=== PATIENT | female | born 1925 | race Caucasian/White ===

== ENCOUNTER 2016-09-06 19:59 | Inpatient (IN) | payer OTHER, MEDICARE ==
[~2016-09-06] VITALS: Ht 162.6 cm; Wt 59.0 kg
[~2016-09-06 19:59] MED LIST: TYLENOL #31 TAB PO
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
--- NOTE | 2016-09-06 20:29 | NUR ---
LABS SENT (1SST,1LAV,1BLUE,1GRAY,1PINK)
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
[2016-09-06 20:41] LABS: ABSOLUTE BASOPHIL COUNT 0 /CUMM (0.0-0.2); ABSOLUTE EOSINOPHIL COUNT 0.2 /CUMM (0.0-0.7); ABSOLUTE GRANULOCYTE CT 6.7 /CUMM (1.4-6.5); ABSOLUTE MONOCYTE COUNT 1.2 /CUMM (0.10-0.60); BASOPHIL % 0.3 % (0.0-2.0); EOSINOPHIL % 1.6 % (0-5); GRANULOCYTE % 59.7 % (42.2-75.2); HEMATOCRIT 38.4 % (37-47); MEAN CORPUSCULAR HGB 29.6 PG (27.0-31.0); MEAN CORPUSCULAR HGB CONC 33.1 G/DL (33.0-37.0); MEAN CORPUSCULAR VOLUME 89.4 FL (81.0-99.0); MEAN PLATELET VOLUME 9.2 FL (7.4-10.4); PLATELET COUNT 216 /CUMM (130-400); RBC DISTRIBUTION WIDTH 13.4 % (11.5-14.5); WHITE BLOOD CELL COUNT 11.1 /CUMM (4.8-10.8)
--- NOTE | 2016-09-06 20:41 | NUR ---
KIRILL Prescott AT BEDSIDE TO REEVAL AND TALK TO PT
[2016-09-06] MEDS ORDERED: METOPROLOL TART25 M1 PO (20:44)
[2016-09-06] MEDS ORDERED: LISINOPRIL10 M1 PO (20:44)
[2016-09-06] MEDS ORDERED: ASPIRIN325 M2 PO (20:45)
[2016-09-06] MEDS ORDERED: ALEVE220 M2 (20:45)
[2016-09-06 20:51] LABS: PTT 27 SEC (25-37)
--- NOTE | 2016-09-06 20:59 | NUR ---
PT TO RADIOLOGY
--- NOTE | 2016-09-06 22:01 | RADIOLOGY REPORT ---
EXAMINATION: XR HIP, RIGHT CLINICAL INFORMATION: Fall, right hip fracture. COMPARISON: No relevant prior studies are available for comparison. TECHNIQUE: AP and crosstable lateral views of the right hip. FINDINGS: There is an oblique intertrochanteric fracture with associated varus angulation. Additionally, there is a greater trochanter fracture with approximately 1.4 cm of displacement as well as the lesser trochanter fracture with approximately 2.1 cm of medial displacement. The femoral head is well-seated within the acetabulum. There are mild right hip degenerative changes. There is no osseous erosion. Atherosclerotic calcifications are seen within the femoral vessels. IMPRESSION: Right hip intertrochanteric fracture with associated varus angulation. Additional displaced fractures of the greater and lesser trochanters.
--- NOTE | 2016-09-06 22:01 | RADIOLOGY REPORT ---
EXAMINATION:\H\ \N\XR CHEST CLINICAL INFORMATION: Hip fracture. COMPARISON: Multiple priors, most recent chest radiograph dated 12/29/2012. TECHNIQUE: Frontal view of the chest was obtained. FINDINGS: Prominent bilateral interstitial markings. No focal airspace consolidation. No pleural effusion or pneumothorax. Stable cardiomediastinal silhouette. No acute osseous abnormality. IMPRESSION: Prominent bilateral interstitial markings without a focal airspace consolidation. No significant interval change since the prior examination.
--- NOTE | 2016-09-06 22:01 | Cons- Orthopedic ---
General Information and HPI Consulting Request Date of Consult: 09/06/16 Requested By: Dr Holbrook Reason for Consult: R hip fracture Source of Information: patient, family Exam Limitations: language barrier History of Present Illness: Patient is a 89-year-old female who presents to the emergency room with right- sided severe hip pain after a fall that occurred prior to arrival. This was a mechanical fall, when she was outside carrying a bag, lost her balance fell onto her right side. She was brought in by ambulance and evaluated by the emergency room staff, plain film x-ray show that she has a intertrochanteric right-sided hip fracture and she was admitted to the hospitalist service and orthopedics was consulted for management of her hip fracture. Patient was seen in the emergency room, she has acute severe pain which is worse with motion. She has no previous hip problems. She denies any other injuries chest pain or shortness of breath, head injury lightheadedness or dizziness. She has a history of a cardiac stent and is on aspirin Allergies/Medications Allergies: Coded Allergies: NO KNOWN ALLERGIES (02/27/12) Home Med List: Aspirin (Aspirin*) 325 MG TABLET 1 TAB PO DAILY HEART (Reported) Lisinopril 10 MG TABLET 1 TAB PO DAILY BLOOD PRESSURE (Reported) Metoprolol Tartrate 25 MG TABLET 1 TAB PO BID BLOOD PRESSURE (Reported) Naproxen Sodium (Aleve) 220 MG TABLET PAIN (Reported) Past History Medical History Cardiovascular: hypertension, hyperlipidemia Musculoskeletal: osteoarthritis Other Medical Hx: Hypertension, dyslipidemia, coronary artery disease status post anterior wall [place] with stent to the LAD in 2002, lumbar stenosis with lumbar radiculopathy, compression fractures, osteoporosis, and carpal tunnel release. Surgical History Pertinent Surgical History: cardiac stent Psychosocial History Services at Home: None Review of Systems Review of Systems: Review of systems: See HPI, all other systems negative. Constitutional: No chills fever or weight loss HEENT: No visual changes no sore throat no congestion Cardiovascular: No chest pain ,palpitation , orthopnea or ankle swelling Skin: No jaundice no rashes Respiratory: No dyspnea cough sputum or hemoptysis GI: No nausea no vomiting : No dysuria no hematuria Musclulo skeletal: See HPI Neurologic: No numbness no confusion Psych: No stress anxiety or depression,. Heme/endocrine: No bruising no bleeding no polyuria or polydipsia Immunology: No splenectomy or history of AIDS Exam & Diagnostic Data Vital Signs and I&O Vital Signs Date Time Temp Pulse Resp B/P B/P Pulse O2 O2 Flow FiO2 Mean Ox Delivery Rate 09/06 2142 96.7 69 19 155/65 94 Room Air 09/07 2035 Room Air 09/06 2014 96.4 114 20 148/65 94 Room Air Physical Exam: Well-developed well-nourished elderly female looks stated age appears to be in acute pain, holding right hip. HEENT, atraumatic , extraocular motion intact Neck: Supple, no lymphadenopathy no tenderness on palpation, Respiratory: No respiratory distress chest is nontender, clear to auscultation bilateral Abdomen: Abdomen is nontender Heart: Regular rate and rhythm Extremities: Right lower extremity is mildly shortened and next only rotated with swelling at the right anterior and lateral proximal hip with severe pain on palpation and severe pain with attempting to move the right lower extremity bilateral lower extremities are neurovascularly intact with sensation motor grossly intact Neuro: Alert and oriented x3 Psych: Mood affect normal, normal memory normal judgment. Skin: Warm and dry, no rash on exposed skin Last 24 Hours of Labs: Laboratory Tests 09/06 2028 Chemistry Sodium (137 - 145 mmol/L) 140 Potassium (3.5 - 5.1 mmol/L) 4.7 Chloride (98 - 107 mmol/L) 102 Carbon Dioxide (22 - 30 mmol/L) 27 Anion Gap (5 - 16) 11 BUN (7 - 17 mg/dL) 40 H Creatinine (0.5 - 1.0 mg/dL) 0.8 Estimated GFR (>60 ml/min) > 60 BUN/Creatinine Ratio (7 - 25 %) 50.0 H Glucose (65 - 99 mg/dL) 162 H Calcium (8.4 - 10.2 mg/dL) 9.3 Total Bilirubin (0.2 - 1.3 mg/dL) 0.5 AST (14 - 36 U/L) 16 ALT (9 - 52 U/L) 24 Alkaline Phosphatase (<127 U/L) 62 Total Protein (6.3 - 8.2 g/dL) 6.6 Albumin (3.5 - 5.0 g/dL) 4.0 Globulin (1.9 - 4.2 gm/dL) 2.6 Albumin/Globulin Ratio (1.1 - 2.2 %) 1.5 Coagulation PT (9.4 - 12.5 SEC) 11.0 INR (0.90 - 1.19) 1.05 APTT (25 - 37 SEC) 27 Hematology CBC w Diff NO MAN DIFF REQ WBC (4.8 - 10.8 /CUMM) 11.1 H RBC (4.20 - 5.40 /CUMM) 4.30 Hgb (12.0 - 16.0 G/DL) 12.7 Hct (37 - 47 %) 38.4 MCV (81.0 - 99.0 FL) 89.4 MCH (27.0 - 31.0 PG) 29.6 RDW (11.5 - 14.5 %) 13.4 Plt Count (130 - 400 /CUMM) 216 MPV (7.4 - 10.4 FL) 9.2 Gran % (42.2 - 75.2 %) 59.7 Lymphocytes % (20.5 - 51.1 %) 27.4 Monocytes % (1.7 - 9.3 %) 11.0 H Eosinophils % (0 - 5 %) 1.6 Basophils % (0.0 - 2.0 %) 0.3 Absolute Granulocytes (1.4 - 6.5 /CUMM) 6.7 H Absolute Lymphocytes (1.2 - 3.4 /CUMM) 3.0 Absolute Monocytes (0.10 - 0.60 /CUMM) 1.2 H Absolute Eosinophils (0.0 - 0.7 /CUMM) 0.2 Absolute Basophils (0.0 - 0.2 /CUMM) 0 PUBS MCHC (33.0 - 37.0 G/DL) 33.1 Imaging Results: X-rays the right hip show a three-part intertrochanteric right-sided hip fracture Assessment/Plan Assessment/Plan Intertrochanteric right-sided hip fracture Patient is admitted to medicine, requires surgical intervention at some point, she will need a medical and cardiac clearance. We will make her nothing by mouth after midnight for the possibility of surgery tomorrow. She should be nonweightbearing, bed rest for now, Altamirano catheter in place, pain medication as needed, considering adding Valium or Robaxin for muscle spasm. Discussed with Problem List: 1. Intertrochanteric fracture of right hip Consult Acknowledgment - Thank you for your consult request.
--- NOTE | 2016-09-07 00:07 | Admission Certification ---
Admission Certification Certification Statement - As attending physician, I certify that at the time of - admission, based on clinical presentation, severity of - symptoms, need for further diagnostic testing and - therapeutic interventions, and risk of adverse outcomes - without in-hospital treatment, in my clinical assessment, - this patient requires an acute hospital stay for a minimum - of two nights or longer. I have also considered psychsocial - factors such as support system, advanced age, financial - issues, cognitive issues, and failed out-patient treatments, - past re-admission history, safety of patient, and lack of - compliance as applicable. Specific rationale supporting this admission is: Mechanical fall, right hip fracture needs Ortho consult, pain management and repair.
--- NOTE | 2016-09-07 00:09 | NUR ---
REFER TO DOWN TIME PAPERWORK AND ORDERS
--- NOTE | 2016-09-07 00:10 | History & Physical ---
SARAHI KAPLAN MD 09/07/16 0007: General Information and HPI MD Statement: I have seen and personally examined ATIYA KHAN and documented this H&P. The patient is a 89 year old F who presented with a patient stated chief complaint of [hip pain after fall]. Source of Information: patient, family Exam Limitations: language barrier History of Present Illness: 89-year-old female with past medical history of CAD, status post stent to LAD in 2002, hypertension, hyperlipidemia, lumbar stenosis, lumbar radiculopathy, compression fractures, osteoporosis, presented to the ED status post mechanical fall. Patient reports that she was trying to carry a heavy bag of weeds, but lost her balance and ended up falling on her right side, with pain on her right hip, and some abrasions on her right elbow. Patient denies head trauma, loss of consciousness, dizziness, seizure-like activity including tongue biting, urinary incontinence. Patient also denies bowel incontinence. Denies chest pain, palpitations, shortness of breath. Patient received 4 mg of IV morphine in the ED, without significant relief in pain. She is noted to have bilateral arm shakiness, that she gets when she is in severe pain. Social history: Patient lives with her son, normally ambulates with a cane or walker. She cooks and cleans at home. She drinks wine occasionally, smokes or 0.5 pack a day for a long time. Denies illicit drug use. She used to work at [employer] for 20 years. Family history significant for patient's mom who had a stroke at age of 87. Medications: Lisinopril 10 mg daily, metoprolol 25 twice a day, Aleve 220 daily, aspirin 325 daily. Her vitals were within normal limits. Labs were mostly unremarkable, but she does have a white count of 11.1 without bands. Hemoglobin 12.7, hematocrit 38.4, INR 1.05, APTT 27, sodium 140, potassium 4.7, BUN 40, creatinine 0.8, anion gap 11. EKG showed sinus rhythm at 76, QTC 446. On physical exam, HEENT normal, no respiratory distress, breath sounds are normal, normal S1, S2, no murmurs rubs or gallops, no carotid bruit, abdominal exam benign, normal bowel sounds, right lower extremity was shortened and externally rotated, movement is limited due to severe pain. Pulses were normal. Capillary refill normal. Right hip x-ray shows right hip intertrochanteric fracture with associated varus angulation. Additional displaced fractures of the greater and lesser trochanters. Allergies/Medications Allergies: Coded Allergies: NO KNOWN ALLERGIES (02/27/12) Home Med list Aspirin (Aspirin*) 325 MG TABLET 1 TAB PO DAILY HEART (Reported) Lisinopril 10 MG TABLET 1 TAB PO DAILY BLOOD PRESSURE (Reported) Metoprolol Tartrate 25 MG TABLET 1 TAB PO BID BLOOD PRESSURE (Reported) Naproxen Sodium (Aleve) 220 MG TABLET PAIN (Reported) Past History Travel History Traveled to [place] past 21 day No Medical History Cardiovascular: hypertension, hyperlipidemia Musculoskeletal: osteoarthritis Other Medical Hx: Hypertension, dyslipidemia, coronary artery disease status post anterior wall NJ with stent to the LAD in 2002, lumbar stenosis with lumbar radiculopathy, compression fractures, osteoporosis, and carpal tunnel release. Surgical History Surgical History: cardiac stent Past Family/Social History Family History Relations & Conditions if any MOTHER FH: stroke, Onset: 60+. Psychosocial History Where do you live? Home Who Do You Live With? child Services at Home: None Primary Language: Macedonian Smoking Status: Current Everyday Smoker ETOH Use: occasional use Illicit Drug Use: denies illicit drug use Functional Ability ADLs Independent: dressing, eating, toileting, bathing. Ambulation: cane, walker IADLs Independent: housework, food prep. Review of Systems Review of Systems Constitutional: Denies: chills, fever, weakness. EENTM: Denies: visual changes. Cardiovascular: Denies: chest pain. Respiratory: Denies: cough, short of breath. GI: Denies: abdominal pain, bloating, constipation, diarrhea. Genitourinary: Denies: dysuria. Musculoskeletal: Reports: see HPI. Exam & Diagnostic Data Last 24 Hrs of Vital Signs/I&O Vital Signs Date Time Temp Pulse Resp B/P B/P Pulse O2 O2 Flow FiO2 Mean Ox Delivery Rate 09/07 0010 96.5 77 20 149/65 95 Room Air 09/06 2143 96.7 69 19 155/65 94 Room Air 09/07 2035 Room Air 09/06 2014 96.4 114 20 148/65 94 Room Air Intake & Output 09/07 0800 09/07 0000 09/06 1600 Intake Total 0 Output Total Balance 0 Intake, Oral 0 Patient 58.967 kg Weight Weight Estimated Measurement Method Physical Exam General Appearance Alert, Oriented X3, Cooperative, uncomfortable due to pain HEENT Atraumatic Cardiovascular Regular Rate, Normal S1, Normal S2, No Murmurs, Gallops, Rubs Lungs Clear to Auscultation, Normal Air Movement Abdomen Normal Bowel Sounds, Soft, No Tenderness Neurological Normal Speech Extremities right leg short and externally rotated Vascular Normal Pulses, Pulses Symmetrical, normal cap refill Last 24 Hrs of Labs/Alexis: Laboratory Tests 09/06/162028: Anion Gap 11, Estimated GFR > 60, BUN/Creatinine Ratio 50.0 H, Glucose 162 H, Calcium 9.3, Total Bilirubin 0.5, AST 16, ALT 24, Alkaline Phosphatase 62, Total Protein 6.6, Albumin 4.0, Globulin 2.6, Albumin/Globulin Ratio 1.5, PT 11.0, INR 1.05, APTT 27, CBC w Diff NO MAN DIFF REQ, RBC 4.30, MCV 89.4, MCH 29.6, RDW 13.4, MPV 9.2, Gran % 59.7, Lymphocytes % 27.4, Monocytes % 11.0 H, Eosinophils % 1.6, Basophils % 0.3, Absolute Granulocytes 6.7 H, Absolute Lymphocytes 3.0, Absolute Monocytes 1.2 H, Absolute Eosinophils 0.2, Absolute Basophils 0, PUBS MCHC 33.1 Diagnostic Data EKG Results EKG showed sinus rhythm at 76, QTC 446. Other Results Right hip x-ray shows right hip intertrochanteric fracture with associated varus angulation. Additional displaced fractures of the greater and lesser trochanters. Assessment/Plan Assessment: 89-year-old female with past medical history of CAD, status post stent to LAD in 2002, hypertension, hyperlipidemia, lumbar stenosis, lumbar radiculopathy, compression fractures, osteoporosis, presented to the ED status post mechanical fall, found to have right hip intertrochanteric fracture, will likely need surgical intervention. # Right Hip fracture - RCRI, patient has 1 risk factor (h/o NJ) placing her at 1.0-1.3% risk of perioperative cardiac event. Admit to general medicine Nothing by mouth after midnight Fall precautions IV morphine 4 mg every 4-6 when necessary IV Tylenol 1000 mg 3 times a day IV fluids, normal saline at 75 mL per hour 2 bags Flexeril 5 mg at bedtime for spasm EKG and troponin in the a.m. Watch H&H, type and screen done Appreciate surgical input, Dr. Salas, plan for surgery tomorrow. Cardiology clearance, patient normally follows up with Dr. Coyle Hold aspirin and Aleve # History of hypertension Continue metoprolol and lisinopril Diet: Nothing by mouth DVT prophylaxis: alps, will need to order heparin subcutaneous after surgery Full code As Ranked By This Provider Problem List: 1. Hip fracture, right Core Measures/Miscellaneous Acute Coronary Syndrome ACS Diagnosis: No Cerebrovascular Accident CVA/TIA Diagnosis: No Congestive Heart Failure CHF Diagnosis: No Venous Thromboembolism VTE Risk Factors: Age > 40, Immobility, paresis No [facility] VTE prophylaxis d/t: No contraindications No VTE Pharm Prophylaxis d/t: Surgical contraindication VTE Diagnosis: No VTE Type: NONE VTE Confirmed by (Test): NONE Severe Sepsis Severe Sepsis Present: No Septic Shock Septic Shock Present: No Miscellaneous Documentation Attending Case Discussed With: Dr. Holbrook Primary Care Physician: CAROL HINTON PhD,RENETTA Savage Patient sees these Specialists Dr. Carol Flannery Level of Patient Care: General Medicine PAUL CONROY 09/07/16 0016: Resident Review Statement Resident Statement: examined this patient, discussed with physician general internal medicine, agreed with physician general internal medicine, discussed with family, reviewed EMR data (avail), discussed with nursing , discussed with case mgmt, reviewed images, amended to note Other Findings: 89-year-old female with a past medical history of coronary artery disease status post anterior wall NJ with angioplasty to LAD in 2002, hypertension, hyperlipidemia, lumbar stenosis with lumbar radiculopathy, compression fracture, osteoporosis and carpal tunnel syndrome who presented to the ED after she had a mechanical fall resulting in a fracture of the right hip. According to the patient she was in the driveway earlier this morning, picking up a heavy bag of weeds when she fell down and had excruciating pain on the right side of her hip. She denies LOC, hitting her head, chest pain, SOB, palpitations, headache, lightheadedness, dizziness, any seizure-like activity, urinary or bowel incontinence. She denies dyspnea, orthopnea, fever, chills, productive purulent cough, any history of stroke, or passing out. She states that she called out for help and eventually presented to the ER. Of note she uses a cane or walker at home and is pretty much independent in terms of her ADLs. Vitals on admission blood pressure 155/65, pulse 69, afebrile saturating 94% on room air. On physical exam she is alert and oriented 3 and in mild distress from pain on the right side of her hip. HEENT revealed PERRLA, EOMI, dry mucous membranes. Examination of the neck did not reveal an elevated JVP, no cervical lymphadenopathy. Cardiovascular exam revealed normal S1, S2 no murmurs rubs or gallops appreciated. Chest was clear to auscultation bilaterally. Abdominal exam is benign with abdomen soft, nontender, nondistended with bowel sounds in all 4 quadrants. Examination of the lower extremities reveals an externally rotated shortened right lower extremity compared to the left. Ulcers were intact bilaterally. She is tender on palpation in the right hip. There is no edema or swelling or erythema. There is a slight abrasion located on the extensor surface of her right elbow. Labs pertinent for leukocytosis with a white blood cell count of 11,100, and H&H of 12.7/38.4, platelet count of 216,000. Serum chemistries revealed a sodium of 140, potassium of 4.7, BUN 40, creatinine 0.8 with serum glucose of 162. LFTs unremarkable with an AST/ALT of 16/24 with an alkaline phosphatase of 62. Coags revealed an INR of 1.05. X-ray of the hip: Right hip intertrochanteric fracture with associated varus angulation. Additional displaced fractures of the greater and lesser trochanters. X ray of chest: Prominent bilateral interstitial markings without a focal airspace consolidation. No significant interval change since the prior examination. EKG showed: Dermal sinus rhythm with a heart rate of 76, normal axis, Q waves in leads waves I and aVL, no ST-T changes normal FL interval of 149 and a QTC of 446. In the ER she received morphine 4 mg IV 2 Assessment and plan Admit patient to general medicine. #Right hip fracture status post mechanical fall RCRI is 0.9% for any major cardiovascular event, and patient can undergo surgery. Pain control with IV Tylenol thousand milligrams 3 times a day, and morphine 4 mg every 6 when necessary IV. Flexeril 5mg at bedtime Normal saline at 75 MLS per hour Troponin and EKG in a.m. Cardiology consult in a.m. for risk stratification prior to surgery given patient has a hx of CAD and is s/p stent placement. Orthopedic already evaluated the patient in the ER. NPO after midnight for surgery tomorrow. Follow-up cardiology and orthopedic recommendations. #Coronary artery disease status post PCI Currently stable Continue on metoprolol 25 mg twice a day, lisinopril 10 mg daily and simvastatin 20 mg daily. Will hold, aspirin 325 mg daily -DVT prophylaxis -Alps for now. -Diet Heart healthy. Nothing by mouth after midnight for possible surgery in a.m. -CODE STATUS Full code ALEKSEY HINTON, [facility] 09/07/16 0019: Attending MD Review Statement Attending Statement Attending MD Statement: examined this patient, discuss w/resident/PA/BIOMEDICAL SPECIALIST, agreed w/resident/PA/BIOMEDICAL SPECIALIST Attending Assessment/Plan: 89 yo Macedonian speaking F smoker with h/o CAD s/p AWMI and stent to LAD (2002), HTN, HLD, OA, lumbar stenosis with radiculopathy, compression fracture, osteoporosis, presents for evaluation of right hip pain s/p mechanical fall at home while walking outside carrying a heavy bag when she lost balance. She denies head strike, dizziness or LOC. No chest pain, dyspnea or palpitations. No prior h/o diabetes, stroke or CHF. At baseline, she walks with a cane or walker, independent with ADLs. Vitals stable except for borderline hypertension in the setting of pain. Exam: AAO, in mild distress due to pain, dry mucous membranes, Neck supple. Chest b/l clear, Heart S1S2 regular, RLE: shortened and externally rotated, swelling to anterolateral aspect of hip. Peripheral pulses well felt. Labs: WBC 11.1, INR 1.05, BUN 40, creat 0.8, trop neg. CXR: prominent b/l interstitial markins without focal airspace consolidation. Hip xray: right hip intertrochanteric fracture with varus angulation, additional displaced fractures of greater and lesser trochanter. EKG: SR, no acute changes. 1. Mechanical fall, sustained right hip intertrochanteric fracture. GM admit, fall precautions, pain management with IV morphine, IV Tylenol, Flexeril or valium for muscle spasms, Ortho consulted, NPO after midnight for possible OR in AM. IV fluids. Repeat troponin and EKG in AM. Per RCRI, patient has 1 risk factor (h/o NJ) placing her at 1.0-1.3% risk of perioperative cardiac event. If this is acceptable, patient can be taken up for surgery. Will obtain cardiology clearance for surgery. Obtain Echo. Hold aspirin and NSAIDs. 2. Continue metoprolol, lisinopril with holding parameters. Smoking cessation counseling, nicotine patch. DVT ppx Alps for now, Hep SC post surgery. Full code.
--- NOTE | 2016-09-07 00:32 | NUR ---
MEDICATED WITH LOPRESSOR PER EMAR BP 149/65, HR 77.
--- NOTE | 2016-09-07 01:13 | NUR ---
PT CONTINUES TO AWAIT ADMISSION
--- NOTE | 2016-09-07 02:19 | NUR ---
PT BED ASSIGNMENT 224-1
--- NOTE | 2016-09-07 02:41 | NUR ---
REPORT GIVEN TO MARY GROSSMAN.
[2016-09-07 03:25] VITALS: BP 110/64
[2016-09-07 06:50] VITALS: BP 110/70
--- NOTE | 2016-09-07 07:33 | PN- Orthopedic ---
Subjective Subjective: some pain r hip with movement, ok at rest. no cp/sob/n/v. Objective Vital Signs and I&Os Vital Signs Date Time Temp Pulse Resp B/P B/P Pulse O2 O2 Flow FiO2 Mean Ox Delivery Rate 09/07 0650 98.1 73 20 110/70 93 Room Air 09/07 0325 97.4 72 20 110/64 92 Room Air 09/07 0300 92 Room Air 09/07 0234 96.7 69 18 136/64 95 Room Air 09/07 0039 Room Air 09/07 0032 77 149/65 09/07 0010 96.5 77 20 149/65 95 Room Air 09/06 2143 96.7 69 19 155/65 94 Room Air 09/07 2035 Room Air 09/06 2014 96.4 114 20 148/65 94 Room Air Intake & Output 09/07 0800 09/07 0000 09/06 1600 09/06 0800 09/06 1600 Intake Total 0 Output Total 400 Balance -400 0 Intake, Oral 0 Output, Urine 400 Patient 130 lb 130 lb Weight Weight Reported by Patient Estimated Measurement Method Physical Exam: GEN: NAD CARD: s1s2 RRR PULM: Coarse, clears with cough EXT: RLE- ttp r hip/thigh, +plantar/dorsi flexion, palp pedal pulses, gross sensate intact Results Last 48 Hours of Labs: Laboratory Tests 09/07 09/06 0800 2028 Chemistry Sodium (137 - 145 mmol/L) 139 140 Potassium (3.5 - 5.1 mmol/L) 4.5 4.7 Chloride (98 - 107 mmol/L) 104 102 Carbon Dioxide (22 - 30 mmol/L) 27 27 Anion Gap (5 - 16) 8 11 BUN (7 - 17 mg/dL) 35 H 40 H Creatinine (0.5 - 1.0 mg/dL) 0.7 0.8 Estimated GFR (>60 ml/min) > 60 > 60 BUN/Creatinine Ratio (7 - 25 %) 50.0 H 50.0 H Glucose (65 - 99 mg/dL) 162 H Calcium (8.4 - 10.2 mg/dL) 9.3 Total Bilirubin (0.2 - 1.3 mg/dL) 0.5 AST (14 - 36 U/L) 16 ALT (9 - 52 U/L) 24 Alkaline Phosphatase (<127 U/L) 62 Troponin I (< 0.11 ng/ml) < 0.01 < 0.01 Total Protein (6.3 - 8.2 g/dL) 6.6 Albumin (3.5 - 5.0 g/dL) 4.0 Globulin (1.9 - 4.2 gm/dL) 2.6 Albumin/Globulin Ratio (1.1 - 2.2 %) 1.5 Coagulation PT (9.4 - 12.5 SEC) 11.0 INR (0.90 - 1.19) 1.05 APTT (25 - 37 SEC) 27 Hematology CBC w Diff Pending NO MAN DIFF REQ WBC (4.8 - 10.8 /CUMM) Pending 11.1 H RBC (4.20 - 5.40 /CUMM) Pending 4.30 Hgb (12.0 - 16.0 G/DL) Pending 12.7 Hct (37 - 47 %) Pending 38.4 MCV (81.0 - 99.0 FL) Pending 89.4 MCH (27.0 - 31.0 PG) Pending 29.6 RDW (11.5 - 14.5 %) Pending 13.4 Plt Count (130 - 400 /CUMM) Pending 216 MPV (7.4 - 10.4 FL) Pending 9.2 Gran % (42.2 - 75.2 %) 59.7 Lymphocytes % (20.5 - 51.1 %) 27.4 Monocytes % (1.7 - 9.3 %) 11.0 H Eosinophils % (0 - 5 %) 1.6 Basophils % (0.0 - 2.0 %) 0.3 Absolute Granulocytes (1.4 - 6.5 /CUMM) 6.7 H Absolute Lymphocytes (1.2 - 3.4 /CUMM) 3.0 Absolute Monocytes (0.10 - 0.60 /CUMM) 1.2 H Absolute Eosinophils (0.0 - 0.7 /CUMM) 0.2 Absolute Basophils (0.0 - 0.2 /CUMM) 0 PUBS MCHC (33.0 - 37.0 G/DL) Pending 33.1 Assessment/Plan Assessment/Plan A: 89F with R intertroch fx, awaiting clearance for surgical fixation, stable. P: continue npo, ivf. If not cleared today by cards, can eat and hl, then please make npo pmn with ivf. awaiting cardiac clearance medical mgmt will dw attending
--- NOTE | 2016-09-07 07:48 | NUR ---
0300 ADMITTED FROM ER VIA STRETCHER TO ROOM 224 BED 1.ASSISTED TO BED WITH 4 STAFFS.89 YRS.OLD WF FROM HOME WHO FELL YESTERDAY & FRACTURED RT.HIP. RT.HIP IS SHORTER & ROTATED.CMS+.IN PAIN WHEN MOVED.HAD PAIN MED IN ER. F/C IN PLACED DRAINING LIGHT CHRISTINE URINE.IVF INFUSING.ON RA.NO RESP DISTRESS NOTED.BED ALARM ON.CALL SIMMONS IN REACH.A&OX3.ORIENTED TO ROOM & SURROUNDINGS.ALPS APPLIED TO LLE ONLY.PT IS ANXIOUS.
--- NOTE | 2016-09-07 08:10 | PN- Housestaff ---
See Addendum Subjective Follow-up For: Right hip intertrochanteric fracture Subjective: Patient seen and examined. Reports dry cough, sore throat and URI which started 3 days ago. She is constantly coughing at the time of our interview. Denies fever, chills. Right hip pain is well-controlled with current pain medications. Preop cardiac risk assessment was performed by night team; they suggested cardiology evaluation before considering surgery. Echocardiogram, EKG, troponin pending. Review of Systems Constitutional: Reports: no symptoms. Objective Last 24 Hrs of Vital Signs/I&O Vital Signs Date Time Temp Pulse Resp B/P B/P Pulse O2 O2 Flow FiO2 Mean Ox Delivery Rate 09/07 0650 98.1 73 20 110/70 93 Room Air 09/07 0325 97.4 72 20 110/64 92 Room Air 09/07 0300 92 Room Air 09/07 0234 96.7 69 18 136/64 95 Room Air 09/07 0039 Room Air 09/07 0032 77 149/65 09/07 0010 96.5 77 20 149/65 95 Room Air 09/06 2143 96.7 69 19 155/65 94 Room Air 09/06 2036 Room Air 09/06 2014 96.4 114 20 148/65 94 Room Air Intake & Output 09/07 1600 09/07 0800 09/07 0000 Intake Total 500 0 Output Total 600 Balance -100 0 Intake, IV 500 Intake, Oral 0 0 Number 0 Bowel Movements Output, Urine 600 Patient 130 lb 130 lb Weight Weight Reported by Patient Estimated Measurement Method Physical Exam General Appearance: Alert, Oriented X3, Cooperative, No Acute Distress Skin: No Rashes, No Breakdown HEENT: Atraumatic, PERRLA, EOMI, Mucous Membr. moist/pink, erythematous pharynx, no exudate Neck: Supple, No JVD, No thryomegaly, +2 Carotid Pulse wo Bruit, No LAD Lymphatic: Axillary nl, Cervical nl Cardiovascular: Regular Rate, No Murmurs Lungs: Clear to Auscultation, Normal Air Movement Abdomen: Normal Bowel Sounds, Soft, No Tenderness, No Hepatospenomegaly, No Masses Neurological: Normal Speech, Normal Tone, Sensation Intact, Cranial Nerves 3-12 NL, Reflexes 2+ Extremities: No Cyanosis, No Edema, Normal Pulses, No Tenderness/Swelling, RLE ext rotated. Sensation and pulse intact. Vascular: Normal Pulses, Pulses Symmetrical Current Medications: Current Medications Sig/Dior Start time Last Medication Dose Route Stop Time Status Admin Acetaminophen 1,000 MG TID PRN 09/07 1000 AC 09/07 IV 0746 Acetaminophen 0 .STK-MED ONE 09/07 0031 DC PO Acetaminophen 650 MG Q6P PRN 09/07 0015 AC 09/07 PO 0032 Cyclobenzaprine HCl 5 MG AT BEDTIME 09/07 0030 AC 09/06 PO 2257 Cyclobenzaprine HCl 0 .STK-MED ONE 09/06 2254 DC PO Guaifenesin 10 ML Q4P PRN 09/07 0845 AC PO Lisinopril 10 MG DAILY 09/07 1000 AC PO Metoprolol Tartrate 0 .STK-MED ONE 09/07 0031 DC PO Metoprolol Tartrate 25 MG BID 09/07 0014 AC 09/07 PO 0032 Morphine Sulfate 4 MG Q6-PRN PRN 09/07 0015 AC 09/07 IV 0500 Morphine Sulfate 4 MG ONCE ONE 09/06 2144 DC 09/06 IV 09/06 2145 214 Morphine Sulfate 0 .STK-MED ONE 09/06 2144 DC .ROUTE Morphine Sulfate 0 .STK-MED ONE 09/06 2018 DC .ROUTE Morphine Sulfate 4 MG ONCE ONE 09/06 2014 DC 09/06 IV 09/06 Nicotine 14 MG DAILY 09/07 1000 AC TOP Sodium Chloride 1,000 ML Q13H 09/07 0100 AC 09/06 IV 09/08 0259 2257 Last 24 Hrs of Lab/Alexis Results Last 24 Hrs of Labs/Mics: Laboratory Tests 09/07/16 0800: Anion Gap 8, Estimated GFR > 60, BUN/Creatinine Ratio 50.0 H, Troponin I Pending, CBC w Diff Pending, WBC Pending, RBC Pending, Hgb Pending, Hct Pending, MCV Pending, MCH Pending, RDW Pending, Plt Count Pending, MPV Pending, PUBS MCHC Pending 09/06/162028: Anion Gap 11, Estimated GFR > 60, BUN/Creatinine Ratio 50.0 H, Glucose 162 H, Calcium 9.3, Total Bilirubin 0.5, AST 16, ALT 24, Alkaline Phosphatase 62, Troponin I < 0.01, Total Protein 6.6, Albumin 4.0, Globulin 2.6, Albumin/ Globulin Ratio 1.5, PT 11.0, INR 1.05, APTT 27, CBC w Diff NO MAN DIFF REQ, RBC 4.30, MCV 89.4, MCH 29.6, RDW 13.4, MPV 9.2, Gran % 59.7, Lymphocytes % 27.4, Monocytes % 11.0 H, Eosinophils % 1.6, Basophils % 0.3, Absolute Granulocytes 6.7 H, Absolute Lymphocytes 3.0, Absolute Monocytes 1.2 H, Absolute Eosinophils 0.2, Absolute Basophils 0, PUBS MCHC 33.1 Microbiology 09/07 0838 NASOPHARYN: Influenza Virus A & B Rapid Smear - ORD Assessment/Plan Assessment: 89-year-old lady with h/o 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 Problem list/plan: #Right hip intertrochanteric fracture after mechanical fall: Awaiting cardiology recommendations for preop cardiology risk assessment. Management per orthopedics. #Cough and sore throats: Likely secondary to URI, ordered rapid flu and strep. Guaifenesin when necessary. #CAD status post PCI: Maintained on [employer] metoprolol, lisinopril, Statin. Aspirin was held on admission in anticipation of surgery. #DVT prophylaxis. #Full code Problem List: 1. Hip fracture, right Pain Ratin Pain Location: Rt hip Pain Goal: Remain pain free Pain Plan: Morphin PRN Tylenol PRN Tomorrow's Labs & Rationales: CBC to monitor H&H BEP to monitor electrolytes.
--- NOTE | 2016-09-07 09:12 | PN- Orthopedic ---
Surgical Brief Attending Note Brief Attending Note: Patient seen this morning. Patient with a right intertrochanteric hip fracture. With the physician assistants orthopedic consult last night. The patient will need fixation of the fracture when medically optimized and cleared by the code and test clerk. Await clearance and we'll take the OR as soon as clearance occurs.
[2016-09-07 09:31] LABS: ABSOLUTE BASOPHIL COUNT 0 /CUMM (0.0-0.2); ABSOLUTE EOSINOPHIL COUNT 0 /CUMM (0.0-0.7); ABSOLUTE GRANULOCYTE CT 7.8 /CUMM (1.4-6.5); ABSOLUTE LYMPH COUNT 1.6 /CUMM (1.2-3.4); ABSOLUTE MONOCYTE COUNT 1.4 /CUMM (0.10-0.60); BASOPHIL % 0.3 % (0.0-2.0); EOSINOPHIL % 0.4 % (0-5); GRANULOCYTE % 71.7 % (42.2-75.2); MEAN CORPUSCULAR HGB 29.7 PG (27.0-31.0); MEAN CORPUSCULAR HGB CONC 33.3 G/DL (33.0-37.0); MEAN PLATELET VOLUME 9.2 FL (7.4-10.4); PLATELET COUNT 193 /CUMM (130-400); RBC DISTRIBUTION WIDTH 13.9 % (11.5-14.5); RED BLOOD CELL CT 3.61 /CUMM (4.20-5.40); WHITE BLOOD CELL COUNT 10.9 /CUMM (4.8-10.8)
[2016-09-07 09:46] LABS: HEMATOCRIT 32.1 % (37-47)
--- NOTE | 2016-09-07 10:59 | NUR ---
PT HAD EKG, BLOOD WORK, AND ECHO TODAY. SEEN BY SURGICAL TEAM AND CHICKEN HANDLER. POSSIBLE OR PROCEDURE TODAY PENDING CARDIAC CLEARANCE. PT EDUCATED ON PLAN OF CARE. AGREEABLE. PAIN IN R HIP WITH MOVEMENT, LESS WHEN STILL. WILL MONITOR.
--- NOTE | 2016-09-07 14:04 | Cons- Cardiology ---
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 Her past medical history is significant for known coronary artery disease. She had a stent placed in her LAD in 2002. She has been stable from a cardiac standpoint since that time. She also has a history of hypertension, hyperlipidemia, arthritis, spinal stenosis, compression fractures, etc. The patient now presents to the emergency room after a mechanical fall with resultant hip fracture. As far as I can discern, the patient has been followed closely by her manufacturing systems engineer. She has had no evidence of any recent symptoms. Granted, her activity levels are somewhat limited by her arthritis, back discomfort, etc. She has no history of congestive heart failure. Diminution, there are no dramatic abnormalities noted. There is no evidence of CHF. The patient's ECG is unchanged from previously. Allergies/Medications Allergies: Coded Allergies: NO KNOWN ALLERGIES (02/27/12) Home Med List: Aspirin (Aspirin*) 325 MG TABLET 1 TAB PO DAILY HEART (Reported) Lisinopril 10 MG TABLET 1 TAB PO DAILY BLOOD PRESSURE (Reported) Metoprolol Tartrate 25 MG TABLET 1 TAB PO BID BLOOD PRESSURE (Reported) Naproxen Sodium (Aleve) 220 MG TABLET PAIN (Reported) Current Medications: Current Medications Sig/Dior Start time Last Medication Dose Route Stop Time Status Admin Acetaminophen 1,000 MG TID PRN 09/07 1000 AC 09/07 IV 0746 Acetaminophen 0 .STK-MED ONE 09/07 0031 DC PO Acetaminophen 650 MG Q6P PRN 09/07 0015 AC 09/07 PO 0032 Cyclobenzaprine HCl 5 MG AT BEDTIME 09/07 0030 AC 09/06 PO 2257 Cyclobenzaprine HCl 0 .STK-MED ONE 09/06 2254 DC PO Guaifenesin 10 ML Q4P PRN 09/07 0845 AC 09/07 PO 1125 Lisinopril 10 MG DAILY 09/07 1000 AC 09/07 PO 0919 Metoprolol Tartrate 0 .STK-MED ONE 09/07 0031 DC PO Metoprolol Tartrate 25 MG BID 09/07 0014 AC 09/07 PO 0919 Morphine Sulfate 4 MG Q6-PRN PRN 09/07 0015 AC 09/07 IV 1219 Morphine Sulfate 4 MG ONCE ONE 09/06 2144 DC 09/06 IV 09/06 Morphine Sulfate 0 .STK-MED ONE 09/06 2144 DC .ROUTE Morphine Sulfate 0 .STK-MED ONE 09/06 2018 DC .ROUTE Morphine Sulfate 4 MG ONCE ONE 09/06 2014 DC 09/06 IV 09/06 Nicotine 14 MG DAILY 09/07 1000 09/07 TOP 0919 Sodium Chloride 1,000 ML Q13H 09/07 0100 09/07 IV 09/08 0259 1359 Past History Travel History Traveled to [place] past 21 day No Medical History Blood Transfusion Hx: No Neurological: NONE EENT: NONE Cardiovascular: hypertension, hyperlipidemia Respiratory: NONE Gastrointestinal: NONE Hepatic: NONE Renal: NONE Musculoskeletal: osteoarthritis Psychiatric: NONE Endocrine: NONE Blood Disorders: NONE Cancer(s): NONE LAST SCOURER/Reproductive: NONE Other Medical Hx: Hypertension, dyslipidemia, coronary artery disease status post anterior wall CT with stent to the LAD in 2002, lumbar stenosis with lumbar radiculopathy, compression fractures, osteoporosis, and carpal tunnel release. Surgical History Surgical History: cardiac stent Family History Relations & Conditions If Any: MOTHER FH: stroke, Onset: 60+. Psychosocial History Where Do You Live? Home Who Do You Live With? child Services at Home: None Primary Language: [place] Smoking Status: Current Everyday Smoker ETOH Use: occasional use Illicit Drug Use: denies illicit drug use Functional Ability ADLs Independent: dressing, eating, toileting, bathing. Ambulation: cane, walker IADLs Independent: housework, food prep. Exam & Diagnostic Data Vital Signs and I&O Vital Signs Date Time Temp Pulse Resp B/P B/P Pulse O2 O2 Flow FiO2 Mean Ox Delivery Rate 09/07 0919 62 128/68 09/07 0919 62 128/68 09/07 0800 Room Air 09/07 0650 98.1 73 20 110/70 93 Room Air 09/07 0325 97.4 72 20 110/64 92 Room Air 09/07 0300 92 Room Air 09/07 0234 96.7 69 18 136/64 95 Room Air 09/07 0039 Room Air 09/07 0032 77 149/65 09/07 0010 96.5 77 20 149/65 95 Room Air 09/06 2142 96.7 69 19 155/65 94 Room Air 09/07 2035 Room Air 09/06 2014 96.4 114 20 148/65 94 Room Air Intake & Output 09/07 0809/07 0000 09/06 0000 Intake Total 500 0 Output Total 600 Balance -100 0 Intake, IV 500 Intake, Oral 0 0 Number 0 Bowel Movements Output, Urine 600 Patient 130 lb 130 lb Weight Weight Reported by Patient Estimated Measurement Method Physical Exam: General Appearance Alert, Oriented X3, Cooperative, uncomfortable due to pain HEENT Atraumatic Cardiovascular Regular Rate, Normal S1, Normal S2, 1 to 2/6 systolic murmur Lungs Clear to Auscultation and percussion bilaterally Abdomen Normal Bowel Sounds, Soft, No Tenderness Neurological Normal/nonfocal Extremities right leg short and externally rotated Vascular Normal Pulses, Pulses Symmetrical, normal cap refill Labs/Alexis Results: Laboratory Tests 09/07 Chemistry Sodium (137 - 145 mmol/L) 139 140 Potassium (3.5 - 5.1 mmol/L) 4.5 4.7 Chloride (98 - 107 mmol/L) 104 102 Carbon Dioxide (22 - 30 mmol/L) 27 27 Anion Gap (5 - 16) 8 11 BUN (7 - 17 mg/dL) 35 H 40 H Creatinine (0.5 - 1.0 mg/dL) 0.7 0.8 Estimated GFR (>60 ml/min) > 60 > 60 BUN/Creatinine Ratio (7 - 25 %) 50.0 H 50.0 H Glucose (65 - 99 mg/dL) 162 H Calcium (8.4 - 10.2 mg/dL) 9.3 Total Bilirubin (0.2 - 1.3 mg/dL) 0.5 AST (14 - 36 U/L) 16 ALT (9 - 52 U/L) 24 Alkaline Phosphatase (<127 U/L) 62 Troponin I (< 0.11 ng/ml) < 0.01 < 0.01 Total Protein (6.3 - 8.2 g/dL) 6.6 Albumin (3.5 - 5.0 g/dL) 4.0 Globulin (1.9 - 4.2 gm/dL) 2.6 Albumin/Globulin Ratio (1.1 - 2.2 %) 1.5 25-OH Vitamin D Total (30 - 100 ng/ml) 23.8 L Coagulation PT (9.4 - 12.5 SEC) 11.0 INR (0.90 - 1.19) 1.05 APTT (25 - 37 SEC) 27 Hematology CBC w Diff NO MAN DIFF REQ NO MAN DIFF REQ WBC (4.8 - 10.8 /CUMM) 10.9 H 11.1 H RBC (4.20 - 5.40 /CUMM) 3.61 L 4.30 Hgb (12.0 - 16.0 G/DL) 10.7 L 12.7 Hct (37 - 47 %) 32.1 L 38.4 MCV (81.0 - 99.0 FL) 89.0 89.4 MCH (27.0 - 31.0 PG) 29.7 29.6 RDW (11.5 - 14.5 %) 13.9 13.4 Plt Count (130 - 400 /CUMM) 193 216 MPV (7.4 - 10.4 FL) 9.2 9.2 Gran % (42.2 - 75.2 %) 71.7 59.7 Lymphocytes % (20.5 - 51.1 %) 14.6 L 27.4 Monocytes % (1.7 - 9.3 %) 13.0 H 11.0 H Eosinophils % (0 - 5 %) 0.4 1.6 Basophils % (0.0 - 2.0 %) 0.3 0.3 Absolute Granulocytes (1.4 - 6.5 /CUMM) 7.8 H 6.7 H Absolute Lymphocytes (1.2 - 3.4 /CUMM) 1.6 3.0 Absolute Monocytes (0.10 - 0.60 /CUMM) 1.4 H 1.2 H Absolute Eosinophils (0.0 - 0.7 /CUMM) 0 0.2 Absolute Basophils (0.0 - 0.2 /CUMM) 0 0 PUBS MCHC (33.0 - 37.0 G/DL) 33.3 33.1 Diagnostic Data EKG Results Sinus rhythm, unchanged from previously Assessment/Plan Assessment/Plan Assessment: 1. Right hip fracture status post mechanical fall 2. History of known coronary artery disease, status post LAD stent in 2002 3. Hypertension 4. Hyperlipidemia 5. Chronic issues with back pain, compression fractures, arthritis, and spinal stenosis. Recommendations: -At the moment, the patient appears to be stable from a cardiac standpoint. -Granted, in view of the patient's age and prior history of coronary artery disease, her risk for any surgery is mildly elevated. However, overall, the patient appears to open stable, with no symptoms, no ECG changes, and no new findings on her examination. She has been asymptomatic in spite of her limited activity levels. From my perspective, the patient should tolerate the surgery and is cleared for the surgery as planned. -I discussed the overall situation with the patient and she understands that her risk for surgery is slightly elevated but agrees with the necessity to proceed as planned. -Otherwise, continue current medical regimen if possible. Consult Acknowledgment - Thank you for your consult request.
[2016-09-07 14:20] VITALS: BP 140/80
--- NOTE | 2016-09-07 15:47 | Operative Report ---
Operative/Inv Procedure Report Surgery Date: 09/07/16 Name of Procedure: Intramedullary nail right hip Pre-Operative Diagnosis: Right hip intertrochanteric fracture Post-Operative Diagnosis: Same Estimated Blood Loss: 50ml to 100ml Surgeon/Dining Chair Seat Cushion Trimmer: DILLAN Anesthesia: laryngeal mask airway IV Fluids: See anesthesia record Implants: Olya gamma nail short 95 mm lag screw Specimens: None Complications: None Condition: Stable Operative Indication: Patient's an 89-year-old female status post mechanical fall with a right intertrochanteric hip fracture. She is cleared by the medical and cardiology service and was taken the operating room for fixation. The risks and benefits of the procedure discussed the patient and her son in detail. Operative/Procedure Note Note: Once informed consent was obtained and the correct limb was identified patient brought to operative room placed on table. This was on the fracture table. Patient's left leg was placed in a well-leg cancino and the right lower extremity was placed in traction. C-arm fluoroscopy was brought in and reduction was done. The fracture was reduced in the AP and lateral planes and the right lower 70 is prepped and draped usual sterile fashion. To begin the procedure small incision made proximal to the tip of the greater trochanter. Position of the guidewire placement was confirmed on AP and lateral planes and the gutters advanced into the proximal femur. Guidewires and advanced across the fracture site. Proximal reamer was then used to ream out the proximal fragment for placement of the short gamma nail. Over the guidewire the short gamma nail was placed and confirmed to be in the femur and the AP and lateral planes. Positioning of the nail was then confirmed in AP plane for placement of the lag screw. Using the drill guide a guidewire was placed across the femoral neck into the femoral head. Position of the guidewire was confirmed in AP and lateral planes and lag screw measurement length was 95 mm. The triple reamer was set to 95 and the lateral cortex and femoral neck were reamed out. A 95 mm lag screws placed through the nail into the femoral head. C-arm fluoroscopy confirmed excellent position in the AP and lateral planes. Using the jig a distal locking screws placed through the distal femur without complication. Final images confirmed excellent nail placement with excellent fracture reduction and hardware placement. The jig was disassembled and the incisions were closed with 0 Vicryl and 2-0 Vicryl interrupted sutures. Trinchera was used to close the skin and a sterile dressing was applied. The patient was awakened taken recovery in stable condition.
--- NOTE | 2016-09-07 17:15 | RADIOLOGY REPORT ---
EXAMINATION: XR HIP, RIGHT CLINICAL INFORMATION: Right hip ORIF placement. COMPARISON: Right hip radiographs dated 09/06/2016. TECHNIQUE: Ten intraoperative fluoroscopic images were obtained. FINDINGS: The provided images demonstrate the placement of a right femoral nail and dynamic hip screw ORIF. The previously identified intertrochanteric fracture is now seen in near anatomic alignment. The lesser trochanter fracture remains medially displaced. IMPRESSION: Interval placement of a right hip ORIF with near anatomic alignment of the intertrochanteric fracture. Persistent medially displaced lesser trochanter fracture.
[2016-09-07 17:30] VITALS: BP 110/54
--- NOTE | 2016-09-07 19:15 | PN- Orthopedic ---
Subjective Subjective: POSTOP CHECK Pain well controlled. sleepy but arouable. +uo via koenig. Objective Vital Signs and I&Os Vital Signs Date Time Temp Pulse Resp B/P B/P Pulse O2 O2 Flow FiO2 Mean Ox Delivery Rate 09/07 1730 93 Nasal 4.0L Cannula 09/07 1730 96.7 73 18 110/54 93 Nasal 4.0L Cannula 09/07 1420 98.8 72 18 140/80 93 Room Air 09/07 0919 62 128/68 09/07 0919 62 128/68 09/07 0800 Room Air 09/07 0650 98.1 73 20 110/70 93 Room Air 09/07 0325 97.4 72 20 110/64 92 Room Air 09/07 0300 92 Room Air 09/07 0234 96.7 69 18 136/64 95 Room Air 09/07 0039 Room Air 09/07 0032 77 149/65 09/07 0010 96.5 77 20 149/65 95 Room Air 09/06 2143 96.7 69 19 155/65 94 Room Air 09/06 2036 Room Air 09/06 2014 96.4 114 20 148/65 94 Room Air Intake & Output 09/07 1600 09/07 0800 09/07 0000 09/06 1600 09/06 0800 09/06 0000 Intake Total 1000 500 0 Output Total 100 600 Balance 900 -100 0 Intake, IV 1000 500 Intake, Oral 0 0 Number 0 Bowel Movements Output, Urine 100 600 Patient 130 lb 130 lb Weight Weight Reported by Patient Estimated Measurement Method Physical Exam: GEN: NAD CARD: s1s2 RRR PULM: CTAB EXT: R hip dressing CDI, +DP/PT pulse R foot, +plantar/dorsiflexion R foot, + toe movement R foot, gross sensate intact RLE, ALPS on bl Assessment/Plan Assessment/Plan A: 89F POD0 sp IM nail for R intertroch fx, stable. P: prn pain meds titrate o2, TRC OOB with PT, WBAT eliquis 2.5mg BIC to start POD1 am labs HH diet as tolerated medical mgmt per medical team
[2016-09-07 20:00] VITALS: BP 120/54
[2016-09-07 22:09] VITALS: BP 110/70
[2016-09-08 06:30] VITALS: BP 118/70
--- NOTE | 2016-09-08 06:35 | ECHOCARDIOGRAM REPORT ---
ATIYA KHAN Age: 89 : 1925 Gender: F Exam Date: 09/07/2016 09:37 Exam Location: [address] [place] [address] A Ht (in): 64 Wt (lb): 130 BSA: 1.64 BP: 110 / 70 Ordering Physician: PAUL CONROY MD Referring Physician: Aric Coyle MD, PhD Technologist: Shantell Shepard [facility] Room Number: 224 Indications: HEART FAILURE Rhythm: Sinus Technical Quality: technically limited FINDINGS Left Ventricle Normal left ventricular size, wall thickness and systolic function with no obvious regional wall motion abnormalities. Diastolic filling pattern is consistent with impaired LV relaxation. The ejection fraction is visually estimated at 60%. Right Ventricle The right ventricle is normal in size and function. Right Atrium The right atrium is normal in size. Left Atrium The left atrium is normal in size. The interatrial septum is intact. Mitral Valve The mitral valve demonstrates mild annular calcification with normal function. There is no mitral regurgitation. Aortic Valve Structurally normal aortic valve without significant sclerosis or stenosis. There is mild aortic regurgitation. Tricuspid Valve The tricuspid valve is normal in structure and function. There is mild tricuspid regurgitation. Pulmonary artery systolic pressure is borderline elevated to 35.9mmHg. Pulmonic Valve Structurally normal pulmonic valve. There is mild pulmonic regurgitation. Pericardium Normal pericardium without effusion. No pleural effusion. Great Vessels Normal aortic root dimension. The aortic arch and great vessels are well seen and are normal. CONCLUSIONS 1. Normal EF of 60% with impaired LV relaxation. 2. Mild tricuspid regurgitation. 3. Mild aortic regurgitation. 4. Mild pulmonic regurgitation. 5. Borderline pulmonary hypertension. Aric Coyle M.D. (Electronically Signed) Final Date: 08 Sep 2016 06:34 MEASUREMENTS (Male / Female) Normal Values 2D ECHO LV Diastolic Diameter PLAX 4.0 cm 4.2 - 5.9 / 3.9 - 5.3 cm LV Systolic Diameter PLAX 2.7 cm 2.1 - 4.0 cm LV Fractional Shortening PLAX 32.5 % 25 - 46 % LV Ejection Fraction 2D Teich 61.4 % IVS Diastolic Thickness 1.2 cm LVPW Diastolic Thickness 1.2 cm LV Relative Wall Thickness 0.6 RV Internal Dim ED PLAX 3.0 cm 1.9 - 3.8 cm LVOT Diameter 1.9 cm Aortic Root Diameter 3.1 cm LA Systolic Diameter LX 3.5 cm 3.0 - 4.0 / 2.7 - 3.8 cm LA Volume 41.0 cm 18 - 58 / 22 - 52 cm Ascending Aorta Diameter 3.8 cm DOPPLER AV Peak Velocity 221.0 cm/s AV Peak Gradient 19.5 mmHg AV Mean Velocity 151.0 cm/s AV Mean Gradient 11.0 mmHg AV Velocity Time Integral 53.1 cm LVOT Peak Velocity 113.0 cm/s LVOT Peak Gradient 5.1 mmHg LVOT Mean Velocity 76.5 cm/s LVOT Mean Gradient 3.0 mmHg LVOT Velocity Time Integral 28.0 cm LVOT Stroke Volume 79.4 cm AV Area Cont Eq vti 1.5 cm AV Area Cont Eq pk 1.4 cm MV Peak Velocity 137.0 cm/s MV Peak Gradient 7.5 mmHg MV Mean Velocity 73.7 cm/s MV Mean Gradient 3.0 mmHg Mitral E Point Velocity 92.8 cm/s Mitral A Point Velocity 120.0 cm/s Mitral E to A Ratio 0.8 MV PHT Velocity 108.0 cm/s MV Deceleration Reynolds 294.0 cm/s MV Pressure Half Time 110.2 ms MV Area PHT 2.0 cm MV Deceleration Time 285.0 ms TR Peak Velocity 278.0 cm/s TR Peak Gradient 30.9 mmHg Right Atrial Pressure 5.0 mmHg Pulmonary Artery Systolic Pressu 35.9 mmHg Right Ventricular Systolic Press 35.9 mmHg PV Peak Velocity 74.5 cm/s PV Peak Gradient 2.2 mmHg PV Mean Velocity 50.9 cm/s PV Mean Gradient 1.0 mmHg PV Velocity Time Integral 18.8 cm LV E' Lateral Velocity 6.1 cm/s Mitral E to LV E' Lateral Ratio 15.1 LV E' Septal Velocity 5.4 cm/s Mitral E to LV E' Septal Ratio 17.1
--- NOTE | 2016-09-08 07:22 | PN- Housestaff ---
Subjective Follow-up For: Intertronchanteric fracture - s/p repair Subjective: I saw and examined the patient today morning She is doing well. In good spirits. Overnight complained of crampy left upper quadrant pain - resolved. She remains afebrile in no distress. Review of Systems Constitutional: Reports: see HPI. Comments: ROS negative except the above Objective Last 24 Hrs of Vital Signs/I&O Vital Signs Date Time Temp Pulse Resp B/P B/P Pulse O2 O2 Flow FiO2 Mean Ox Delivery Rate 09/08 0630 98.1 63 18 118/70 94 Nasal Cannula 09/07 2353 92 Nasal 4.0L Cannula 09/07 2209 97.6 77 20 110/70 92 09/07 2000 97.6 72 16 120/54 95 Nasal 4.0L Cannula 09/07 1947 Nasal 3.0L Cannula 09/07 1730 93 Nasal 4.0L Cannula 09/07 1730 96.7 73 18 110/54 93 Nasal 4.0L Cannula 09/07 1420 98.8 72 18 140/80 93 Room Air 09/07 0919 62 128/68 09/07 0919 62 128/68 09/07 0800 Room Air Intake & Output 09/08 0800 09/08 0000 09/07 1600 Intake Total 436 721 4347 Output Total 300 100 Balance 900 550 900 Intake, IV 219 424 4066 Intake, Oral 300 250 Output, Urine 300 100 Physical Exam General Appearance: Alert, Oriented X3, Cooperative Skin: No Rashes, No Breakdown, dressing in the right hip region evident HEENT: Atraumatic, PERRLA, EOMI Neck: Supple Cardiovascular: Normal S1, Normal S2, pansystolic murmur present Lungs: Clear to Auscultation, Normal Air Movement Abdomen: Normal Bowel Sounds, Soft, No Tenderness Neurological: Normal Speech, Sensation Intact, Cranial Nerves 3-12 NL Extremities: No Clubbing, No Cyanosis, No Edema Vascular: Normal Pulses Current Medications: Current Medications Sig/Dior Start time Last Medication Dose Route Stop Time Status Admin Acetaminophen 650 MG Q6P PRN 09/07 1630 AC 09/08 PO 0116 Acetaminophen 1,000 MG TID PRN 09/07 1000 DC 09/07 IV 0746 Acetaminophen 650 MG Q6P PRN 09/07 0015 DC 09/07 PO 0032 Apixaban 2.5 MG BID 09/08 1000 AC PO Calcium Carbonate 500 MG ONCE ONE 09/08 0100 DC PO 09/08 0101 Cefazolin Sodium 1,000 MG IQ8 09/07 2300 DC 09/08 IV 09/08 0701 0601 Cyclobenzaprine HCl 5 MG AT BEDTIME 09/07 2200 AC 09/07 PO 2108 Cyclobenzaprine HCl 5 MG AT BEDTIME 09/07 0030 DC 09/06 PO 2257 Dexamethasone 4 MG .STK-MED ONE 09/07 1343 DC IM 09/07 1344 Dexamethasone 4 MG .STK-MED ONE 09/07 1342 DC IM 09/07 1343 Docusate Sodium 100 MG BID 09/07 2200 AC PO Fentanyl Citrate 250 MCG .STK-MED ONE 09/07 1342 DC IM 09/07 1343 Guaifenesin 10 ML Q4P PRN 09/07 1615 AC 09/07 PO 2021 Guaifenesin 10 ML Q4P PRN 09/07 0845 DC 09/07 PO 1125 Hydromorphone HCl 2 MG .STK-MED ONE 09/07 1342 DC IM 09/07 1343 Lisinopril 10 MG DAILY 09/08 1000 AC PO Lisinopril 10 MG DAILY 09/07 1000 DC 09/07 PO 0919 Metoprolol Tartrate 25 MG BID 09/08 1000 AC PO Metoprolol Tartrate 25 MG BID 09/07 2200 DC PO Metoprolol Tartrate 25 MG BID 09/07 0014 DC 09/07 PO 0919 Midazolam HCl 2 MG .STK-MED ONE 09/07 1342 DC IM 09/07 1343 Morphine Sulfate 2 MG Q4P PRN 09/07 1630 AC IV Morphine Sulfate 4 MG Q6-PRN PRN 09/07 0015 DC 09/07 IV 1219 Nicotine 14 MG DAILY 09/08 1000 AC TOP Nicotine 14 MG DAILY 09/07 1000 DC 09/07 TOP 0919 Omeprazole 40 MG ONCE ONE 09/08 0100 DC PO 09/08 0101 Ondansetron HCl 4 MG Q6P PRN 09/07 1630 AC IV Oxycodone/ 1 TAB Q6P PRN 09/07 1630 AC Acetaminophen PO Oxycodone/ 2 TAB Q6P PRN 09/07 1630 AC 09/07 Acetaminophen PO 1844 Ramelteon 8 MG AT BEDTIME 09/08 0100 AC PO Sodium Chloride 1,000 ML Q13H 09/07 1615 AC 09/08 IV 0601 Sodium Chloride 1,000 ML Q13H 09/07 0100 DC 09/07 IV 09/08 0259 1359 Last 24 Hrs of Lab/Alexis Results Last 24 Hrs of Labs/Mics: Laboratory Tests 09/08/16 0618: Anion Gap 8, Estimated GFR > 60, BUN/Creatinine Ratio 38.8 H, CBC w Diff Pending, WBC Pending, RBC Pending, Hgb Pending, Hct Pending, MCV Pending, MCH Pending, RDW Pending, Plt Count Pending, MPV Pending, PUBS MCHC Pending Microbiology 09/07 0930 NASOPHARYN: Influenza Virus A & B Rapid Smear - COMP Assessment/Plan Assessment: 89-year-old lady with h/o 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 Problem list/plan: Right hip intertrochanteric fracture s/p ORIF * RCRI of 0.9% - history of ME; cleared by cardiology for surgery. * Underwent right hip ORIF yesterday * POD #1 doing well. * Cr remians stable with 2 point drop in H&H * Started on Eliquis 2.5mg BID for DVT prophylaxis Acute Blood loss anemia: * H&H at admission is 12.7/38.4 dropped to 10.7/32.1 * We will monitor for now. * Goal Hb >8 in the setting of cardiac disease CAD status post PCI: * Maintained on [employer] metoprolol, lisinopril, Statin. Aspirin was held on admission in anticipation of surgery. * ECHO shows EF 60%, mild TR, AR, Pulmonary regurgitation. DVT prophylaxis - Eliquis 2.5mg BID. Full code Problem List: 1. Hip fracture, right 2. Hypertension Pain Ratin Pain Location: right hip region Pain Goal: Pain 4 or less Pain Plan: tylenol prn Tomorrow's Labs & Rationales: cbc to monitor her H&H bep to monitor her Cr post op
--- NOTE | 2016-09-08 07:44 | PN- Orthopedic ---
See Addendum Subjective Subjective: pod#1 s/p orif right hip fracture no major issues overnight currently denies cp, sob, no n+v Objective Vital Signs and I&Os Vital Signs Date Time Temp Pulse Resp B/P B/P Pulse O2 O2 Flow FiO2 Mean Ox Delivery Rate 09/08 0630 98.1 63 18 118/70 94 Nasal Cannula 09/07 2353 92 Nasal 4.0L Cannula 09/07 2209 97.6 77 20 110/70 92 09/07 2000 97.6 72 16 120/54 95 Nasal 4.0L Cannula 09/07 1947 Nasal 3.0L Cannula 09/07 1730 93 Nasal 4.0L Cannula 09/07 1730 96.7 73 18 110/54 93 Nasal 4.0L Cannula 09/07 1420 98.8 72 18 140/80 93 Room Air 09/07 0919 62 128/68 09/07 0919 62 128/68 09/07 0800 Room Air Intake & Output 09/08 0800 09/08 0000 09/07 1600 09/07 0800 09/07 0000 09/06 1600 Intake Total 234 080 4181 500 0 Output Total 300 100 600 Balance 900 550 900 -100 0 Intake, IV 252 507 5896 500 Intake, Oral 300 250 0 0 Number 0 Bowel Movements Output, Urine 300 100 600 Patient 130 lb 130 lb Weight Weight Reported by Patient Estimated Measurement Method Physical Exam: cv: rrr lungs: clear abd: soft, +bs ext: right thigh soft drsg dry distal cms intact no calf tenderness bilat okenig: clear urine Assessment/Plan Assessment/Plan ortho stable plan eliquis bid for dvt prophylaxis/stents oob with pt, may be wbat right le d/c koenig advance diet will need snf upon d/c
[2016-09-08 08:55] LABS: ABSOLUTE BASOPHIL COUNT 0 /CUMM (0.0-0.2); ABSOLUTE EOSINOPHIL COUNT 0 /CUMM (0.0-0.7); ABSOLUTE GRANULOCYTE CT 13.3 /CUMM (1.4-6.5); ABSOLUTE LYMPH COUNT 0.6 /CUMM (1.2-3.4); BASOPHIL % 0.2 % (0.0-2.0); EOSINOPHIL % 0 % (0-5); GRANULOCYTE % 89.2 % (42.2-75.2); HEMATOCRIT 27.5 % (37-47); MEAN CORPUSCULAR HGB 29.8 PG (27.0-31.0); MEAN CORPUSCULAR VOLUME 90.1 FL (81.0-99.0); MEAN PLATELET VOLUME 9.4 FL (7.4-10.4); PLATELET COUNT 181 /CUMM (130-400); RBC DISTRIBUTION WIDTH 13.4 % (11.5-14.5); RED BLOOD CELL CT 3.06 /CUMM (4.20-5.40); WHITE BLOOD CELL COUNT 14.9 /CUMM (4.8-10.8)
[2016-09-08 14:00] VITALS: BP 106/56
--- NOTE | 2016-09-08 14:26 | PN- Cardiology ---
Subjective Subjective: The patient is doing well. Stable postoperatively. Out of bed in the recliner chair. Awaiting upcoming transfer to short-term rehabilitation Objective Vital Signs and I&Os Vital Signs Date Time Temp Pulse Resp B/P B/P Pulse O2 O2 Flow FiO2 Mean Ox Delivery Rate 09/08 1400 98.8 72 18 106/56 92 Nasal 3.0L Cannula 09/08 1011 88 122/84 09/08 1011 88 122/84 09/08 0800 94 Nasal 3.0L Cannula 09/08 0630 98.1 63 18 118/70 94 Nasal Cannula 09/07 2353 92 Nasal 4.0L Cannula 09/07 2209 97.6 77 20 110/70 92 09/07 2000 97.6 72 16 120/54 95 Nasal 4.0L Cannula 09/07 1947 Nasal 3.0L Cannula 09/07 1730 93 Nasal 4.0L Cannula 09/07 1730 96.7 73 18 110/54 93 Nasal 4.0L Cannula Intake & Output 09/08 1600 09/08 0800 09/08 0000 09/07 1600 09/07 0800 09/07 0000 Intake Total 893 165 2616 500 0 Output Total 300 100 600 Balance 900 550 900 -100 0 Intake, IV 974 998 8387 500 Intake, Oral 300 250 0 0 Number 0 Bowel Movements Output, Urine 300 100 600 Patient 130 lb 130 lb Weight Weight Reported by Patient Estimated Measurement Method Current Medications: Current Medications Sig/Dior Start time Last Medication Dose Route Stop Time Status Admin Acetaminophen 650 MG .STK-MED ONE 09/08 0117 DC PO 09/08 0118 Acetaminophen 650 MG Q6P PRN 09/07 1630 AC 09/08 PO 1011 Acetaminophen 1,000 MG TID PRN 09/07 1000 DC 09/07 IV 0746 Acetaminophen 650 MG Q6P PRN 09/07 0015 DC 09/07 PO 0032 Apixaban 2.5 MG BID 09/08 1000 AC 09/08 PO 1010 Calcium Carbonate 500 MG ONCE ONE 09/08 0100 DC PO 09/08 0101 Cefazolin Sodium 1,000 MG IQ8 09/07 2300 DC 09/08 IV 09/08 0701 0601 Cyclobenzaprine HCl 5 MG AT BEDTIME 09/07 2200 AC 09/07 PO 2108 Cyclobenzaprine HCl 5 MG AT BEDTIME 09/07 0030 DC 09/06 PO 2257 Docusate Sodium 100 MG BID 09/07 2200 AC 09/08 PO 1010 Guaifenesin 10 ML Q4P PRN 09/07 1615 AC 09/07 PO 2021 Guaifenesin 10 ML Q4P PRN 09/07 0845 DC 09/07 PO 1125 Lisinopril 10 MG DAILY 09/08 1000 AC 09/08 PO 1011 Lisinopril 10 MG DAILY 09/07 1000 DC 09/07 PO 0919 Metoprolol Tartrate 25 MG BID 09/08 1000 AC 09/08 PO 1011 Metoprolol Tartrate 25 MG BID 09/07 2200 DC PO Metoprolol Tartrate 25 MG BID 09/07 0014 DC 09/07 PO 0919 Morphine Sulfate 2 MG Q4P PRN 09/07 1630 AC IV Morphine Sulfate 4 MG Q6-PRN PRN 09/07 0015 DC 09/07 IV 1219 Nicotine 14 MG DAILY 09/08 1000 AC 09/08 TOP 1011 Nicotine 14 MG DAILY 09/07 1000 DC 09/07 TOP 0919 Omeprazole 40 MG ONCE ONE 09/08 0100 DC PO 09/08 0101 Ondansetron HCl 4 MG Q6P PRN 09/07 1630 AC IV Oxycodone/ 1 TAB Q6P PRN 09/07 1630 AC Acetaminophen PO Oxycodone/ 2 TAB Q6P PRN 09/07 1630 AC 09/07 Acetaminophen PO 1844 Ramelteon 8 MG AT BEDTIME 09/08 0100 AC PO Sodium Chloride 1,000 ML Q13H 09/07 1615 DC 09/08 IV 0601 Sodium Chloride 1,000 ML Q13H 09/07 0100 DC 09/07 IV 09/08 0259 1359 Results Last 48 Hrs of Labs/Mics: Laboratory Tests 09/08/16 0618: Anion Gap 8, Estimated GFR > 60, BUN/Creatinine Ratio 38.8 H, CBC w Diff MAN DIFF ORDERED, RBC 3.06 L, MCV 90.1, MCH 29.8, RDW 13.4, MPV 9.4, Gran % 89.2 H , Lymphocytes % 3.9 L, Monocytes % 6.7, Eosinophils % 0, Basophils % 0.2, Absolute Granulocytes 13.3 H, Absolute Lymphocytes 0.6 L, Absolute Monocytes 1.0 H, Absolute Eosinophils 0, Absolute Basophils 0, Platelet Estimate VERIFIED BY SMEAR, Basophilic Stippling 1+, [facility] 33.0 09/07/16 0800: Anion Gap 8, Estimated GFR > 60, BUN/Creatinine Ratio 50.0 H, Troponin I < 0.01 , 25-OH Vitamin D Total 23.8 L, CBC w Diff NO MAN DIFF REQ, RBC 3.61 L, MCV 89.0, MCH 29.7, RDW 13.9, MPV 9.2, Gran % 71.7, Lymphocytes % 14.6 L, Monocytes % 13.0 H, Eosinophils % 0.4, Basophils % 0.3, Absolute Granulocytes 7.8 H, Absolute Lymphocytes 1.6, Absolute Monocytes 1.4 H, Absolute Eosinophils 0, Absolute Basophils 0, [facility] 33.3 09/06/162028: Anion Gap 11, Estimated GFR > 60, BUN/Creatinine Ratio 50.0 H, Glucose 162 H, Calcium 9.3, Total Bilirubin 0.5, AST 16, ALT 24, Alkaline Phosphatase 62, Troponin I < 0.01, Total Protein 6.6, Albumin 4.0, Globulin 2.6, Albumin/ Globulin Ratio 1.5, PT 11.0, INR 1.05, APTT 27, CBC w Diff NO MAN DIFF REQ, RBC 4.30, MCV 89.4, MCH 29.6, RDW 13.4, MPV 9.2, Gran % 59.7, Lymphocytes % 27.4, Monocytes % 11.0 H, Eosinophils % 1.6, Basophils % 0.3, Absolute Granulocytes 6.7 H, Absolute Lymphocytes 3.0, Absolute Monocytes 1.2 H, Absolute Eosinophils 0.2, Absolute Basophils 0, [facility] 33.1 Microbiology 09/07 929 [place]: Influenza Virus A & B Rapid Smear - COMP Assessment/Plan Assessment/Plan Assessment: 1. Right hip fracture status post mechanical fall-stable postop day one 2. History of known coronary artery disease, status post LAD stent in 2002 3. Hypertension 4. Hyperlipidemia 5. Chronic issues with back pain, compression fractures, arthritis, and spinal stenosis. Recommendations: -At the moment, the patient appears to be stable from a cardiac standpoint. -Continue as per orthopedics and medicine for now. -Discharged to short-term rehabilitation pending. -The patient should follow-up with Dr. Coyle as an outpatient. Continue telemetry? No
--- NOTE | 2016-09-08 15:46 | PN- Att Addend ---
Attending MD Review Statement Attending Statement Attending MD Statement: examined this patient, discuss w/resident/PA/NEEDLEWORKER, agreed w/resident/PA/NEEDLEWORKER, reviewed EMR data (avail), discussed w/nursing, discussed w/ case mgmt Attending Assessment/Plan: Laboratory Tests 09/08/16 0618: Anion Gap 8, Estimated GFR > 60, BUN/Creatinine Ratio 38.8 H, CBC w Diff MAN DIFF ORDERED, RBC 3.06 L, MCV 90.1, MCH 29.8, RDW 13.4, MPV 9.4, Gran % 89.2 H , Lymphocytes % 3.9 L, Monocytes % 6.7, Eosinophils % 0, Basophils % 0.2, Absolute Granulocytes 13.3 H, Absolute Lymphocytes 0.6 L, Absolute Monocytes 1.0 H, Absolute Eosinophils 0, Absolute Basophils 0, Platelet Estimate VERIFIED BY SMEAR, Basophilic Stippling 1+, PUBS MCHC 33.0 Vital Signs Date Time Temp Pulse Resp B/P B/P Pulse O2 O2 Flow FiO2 Mean Ox Delivery Rate 09/08 1400 98.8 72 18 106/56 92 Nasal 3.0L Cannula 09/08 1011 88 122/84 09/08 1011 88 122/84 09/08 0800 94 Nasal 3.0L Cannula 09/08 0630 98.1 63 18 118/70 94 Nasal Cannula 09/07 2353 92 Nasal 4.0L Cannula 09/07 2209 97.6 77 20 110/70 92 09/08 1999 97.6 72 16 120/54 95 Nasal 4.0L Cannula 09/07 1947 Nasal 3.0L Cannula 09/07 1730 93 Nasal 4.0L Cannula 09/07 173 96.7 73 18 110/54 93 Nasal 4.0L Cannula Pt seen and examined . Had surgery done yesterday . Doing ok post operatively. Started on eliquis for dvt prophylaxis. D/w pt the care plan. Feels pain is well controlled.
[2016-09-08 22:23] VITALS: BP 140/60
--- NOTE | 2016-09-09 00:47 | Event Note ---
Event Note Event Note: Patient is agitated, combative, hallucinating that her son is there. Trying to get out of bed as well. Will give 1X0.5mg IV ativan as well as soft UE restrains.
--- NOTE | 2016-09-09 01:29 | NUR ---
LATE ENTRY NURSING NOTE: PT ATTEMPTED TO GET OOB. WHEN ASSISTED BY STAFF, PT BECAME COMBATIVE. PT VERY CONFUSED/AGITATED. VISUAL HALLUCINATIONS AND SHOUTING OUT "ARTURO" FOR HER SON. MULTIPLE ATTEMPTS AT REORIENTATION BY STAFF UNSUCCESSFUL. PT PULLING AT IV LINES, REMOVING OXYGEN. WITHOUT O2 PT OXYGEN SAT DOWN TO 88% ON RA. MD ENRRIQUE KAPLAN PAGED. ORDER PLACED FOR IV ATIVAN - ADMINISTERED BY MARY LITTLE. ORDER PLACED FOR CLERICAL STOCK INSPECTOR RESTRAINTS FOR PULLING AT LINES PT REQUIRES O2. RN WILL CONTINUE TO MONITOR.
[2016-09-09 06:40] VITALS: BP 130/60
--- NOTE | 2016-09-09 07:23 | PN- Housestaff ---
See Addendum TAMIKA HINTON,ZAINAB 09/09/16 0722: Subjective Follow-up For: Right hip fracture s/p repair 2 days Altered mentation - acute hyperactive delirium Subjective: I saw and examined the patient today morning She had a rough night, received a single dose of ativan. Very altered and agitated, actively hallucinating. I gave a single dose of 2.5mg followed by one more dose of 2.5mg. She did get better. It is followed by 0.5mg IM haldol and refused to take her medications today. Later her BP reading is 210/100mmHg, HR 110-->140. Still agitated, trying to get of the bed. So after giving one dose of IV lopressor 5mg transfered to telemetry floor for closer monitoring Review of Systems Constitutional: Reports: see HPI. Comments: ROS negative except the above Objective Last 24 Hrs of Vital Signs/I&O Vital Signs Date Time Temp Pulse Resp B/P B/P Pulse O2 O2 Flow FiO2 Mean Ox Delivery Rate 09/09 0640 97 20 130/60 99 Nasal 3.0L Cannula 09/09 0000 94 Nasal 3.0L Cannula 09/08 2223 97.9 96 24 140/60 94 Nasal 3.0L Cannula 09/08 2051 71 118/70 09/08 1600 Nasal 3.0L Cannula 09/08 1400 98.8 72 18 106/56 92 Nasal 3.0L Cannula 09/08 1011 88 122/84 09/08 1011 88 122/84 09/08 0800 94 Nasal 3.0L Cannula Intake & Output 09/09 0800 09/09 0000 09/08 1600 Intake Total 187 787 5267 Output Total 200 320 Balance 150 320 855 Intake, IV 20 125 Intake, Oral 168 875 2281 Output, Urine 200 320 Physical Exam General Appearance: Alert, Severe Distress Skin: No Rashes, No Breakdown HEENT: Atraumatic, PERRLA, EOMI Neck: Supple Cardiovascular: Normal S1, Normal S2 Lungs: Clear to Auscultation, Normal Air Movement Abdomen: Normal Bowel Sounds, Soft, No Tenderness Neurological: pressured speech Extremities: No Clubbing, No Cyanosis Current Medications: Current Medications Sig/Dior Start time Last Medication Dose Route Stop Time Status Admin Acetaminophen 1,000 MG Q6 09/09 1200 AC 09/09 N/A 1 UNIT IV 1124 Acetaminophen 650 MG .STK-MED ONE 09/08 2050 DC PO 09/08 205 Acetaminophen 650 MG Q6P PRN 09/07 1630 AC 09/08 PO 2050 Apixaban 2.5 MG BID 09/08 1000 AC 09/08 PO 2049 Cyclobenzaprine HCl 5 MG AT BEDTIME 09/07 2200 DC 09/08 PO 2049 Docusate Sodium 100 MG BID 09/07 2200 AC 09/08 PO 2049 Guaifenesin 10 ML Q4P PRN 09/07 1615 AC 09/07 PO 2020 Haloperidol 1 MG ONCE ONE 09/09 1300 DC 09/09 IM 09/09 1301 1300 Haloperidol 0.5 MG ONCE ONE 09/09 1145 DC 09/09 IM 09/09 1146 1154 Lisinopril 10 MG DAILY 09/08 1000 AC 09/08 PO 101 Lorazepam 0.5 MG ONCE ONE 09/09 0045 DC 09/09 IV 09/09 0046 0057 Melatonin 10 MG ONCE ONE 09/09 1115 DC PO 09/09 1116 Metoprolol Tartrate 5 MG ONCE ONE 09/09 1245 DC 09/09 IV 09/09 1246 1259 Metoprolol Tartrate 25 MG BID 09/08 1000 AC 09/08 PO 2050 Morphine Sulfate 2 MG Q4P PRN 09/07 1630 DC 09/09 IV 0811 Nicotine 14 MG DAILY 09/08 1000 AC 09/09 TOP 1124 Olanzapine 2.5 MG ONCE ONE 09/09 0945 DC 09/09 IM 09/09 0946 0948 Olanzapine 2.5 MG ONCE ONE 09/09 0800 DC 09/09 IM 09/09 0801 0813 Ondansetron HCl 4 MG Q6P PRN 09/07 1630 AC IV Oxycodone/ 1 TAB Q6P PRN 09/07 1630 DC Acetaminophen PO Oxycodone/ 2 TAB Q6P PRN 09/07 1630 DC 09/07 Acetaminophen PO 1844 Polyethylene Glycol 17 GM DAILY 09/09 1040 AC PO Ramelteon 8 MG AT BEDTIME 09/08 0100 AC 09/08 PO 2049 Sodium Chloride 1,000 ML BOLUS ONE 09/08 1700 CAN IV 09/08 1759 Last 24 Hrs of Lab/Alexis Results Last 24 Hrs of Labs/Mics: Laboratory Tests 09/09/16 1104: Urinalysis LIGHT H, Urine Color YEL, Urine Clarity CLEAR, Urine pH 6.0, Ur Specific [place] 1.015, Urine Protein NEG, Urine Ketones NEG, Urine Nitrite NEG, Urine Bilirubin NEG, Urine Urobilinogen 0.2, Ur Leukocyte Esterase NEG, Ur Microscopic SEDIMENT EXAMINED, Urine RBC 25-50 H, Urine Hemoglobin LARGE H, Urine Glucose NEG 09/09/16 0710: Anion Gap 8, Estimated GFR > 60, BUN/Creatinine Ratio 40.0 H, CBC w Diff NO MAN DIFF REQ, RBC 2.94 L, MCV 88.4, MCH 29.8, RDW 13.3, MPV 8.9, Gran % 75.0, Lymphocytes % 10.2 L, Monocytes % 14.5 H, Eosinophils % 0, Basophils % 0.3, Absolute Granulocytes 13.4 H, Absolute Lymphocytes 1.8, Absolute Monocytes 2.6 H, Absolute Eosinophils 0, Absolute Basophils 0, PUBS MCHC 33.7 Assessment/Plan Assessment: 89-year-old lady with h/o 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 Problem list/plan: Right hip intertrochanteric fracture s/p intramedullary nailing * RCRI of 0.9% - history of VA; cleared by cardiology for surgery. * Underwent right hip ORIF on 09/07/16 * POD #2 - postoperative course complicated by delirium * Cr remians stable with 4 point drop in H&H * continue Eliquis 2.5mg BID for DVT prophylaxis Hyperactive delirium * Likely postoperative vs sleep deprivation vs infectious * White count is increasing everyday -- 17 today * Afebrile, couldnt sleep through out the night * Psych consulted - appreciate their input * Received a total of 5mg Zyperxa, 1.5 mg haldol today * UA is clear today. * Trend white count and continue ramelteon at bedtime. Acute Blood loss anemia: * H&H at admission is 12.7/38 * H&H 12.7/38 --> 10.7/32.1 --> 9.1/27.5 --> 8.8/26 today * Goal Hb >8 in the setting of cardiac disease * No evidence of bleed so far. CAD status post PCI: * Maintained on GUN WELDER metoprolol 25mg BID, lisinopril 10mg, Statin. Aspirin was held on admission in anticipation of surgery. * ECHO shows EF 60%, mild TR, AR, Pulmonary regurgitation. Hypertension * Metoprolol tartarate 25mg BID and lisinopril 10mg daily * Conitnue for now. * Patient refused to take pills today. DVT prophylaxis - Eliquis 2.5mg BID. Full code Problem List: 1. Osteoporosis 2. Coronary artery disease 3. Intertrochanteric fracture of right hip 4. Lumbar stenosis Pain Ratin Pain Location: n/a Pain Goal: Pain 4 or less Pain Plan: tylenol IV Tomorrow's Labs & Rationales: cbc to monitor her H&H and white count bep to monitor electrolytes JESSICA JACKSON MD 09/09/16 1215: Attending MD Review Statement Attending Statement Attending MD Statement: examined this patient, discuss w/resident/PA/STOREKEEPER HELPER, agreed w/resident/PA/STOREKEEPER HELPER, reviewed EMR data (avail), discussed with nursing, discussed with case mgmt, amended to note Attending Assessment/Plan: Patient seen and examined. Confused. Moving all extremities spontaneously but not following, consistently. She was reported as being agitated overnight and was given a dose of Ativan. She became even more agitated this morning. She has been receiving opioid analgesics for pain control as well. Is afebrile hemodynamically stable. Lungs are clear to auscultation bilaterally. Abdomen is soft and nontender. She has no peripheral edema swelling. Surgical site at the left hip is intact with no erythema discharge or tenderness. Problems: 1. Acute delirium. 2. Right hip fracture status post ORIF 3. Expected Acute blood loss anemia 4. Coronary artery disease. 5. Leukocytosis 6. Prerenal azotemia. 7. Respiratory insufficiency. Plan: -Her acute delirium has likely been exacerbated by benzodiazepine therapy. -Recommend avoiding telemetry triggers. Recommend utilizing Zyprexa for agitation. I will use of benzodiazepine therapy. Discontinue opioid analgesics in this elderly opioid cece patient. - Recommend Tylenol IV for pain control. Continue Remeron for sleep. Avoid interruptions at nighttime. - Leukocytosis is probably reactive. No evidence of infection at present. Monitor daily alongside hemoglobin level. Transfuse to keep moving greater than 8. -Continue DVT prophylaxis with Eliquis as recommended by the orthopedic service. -No need to repeat serum chemistry tomorrow. -There has been no documented hypoxia however she is requiring oxygen supplementation. Wean oxygen supplementation as tolerated. If hypoxia persists and leukocytosis persists recommend obtaining a chest x-ray.
--- NOTE | 2016-09-09 07:33 | PN- Orthopedic ---
Subjective Subjective: Patient with mild confusion postoperatively, she is in soft restraints. She has mild complaints of right hip pain. Objective Vital Signs and I&Os Vital Signs Date Time Temp Pulse Resp B/P B/P Pulse O2 O2 Flow FiO2 Mean Ox Delivery Rate 09/09 0640 97 20 130/60 99 Nasal 3.0L Cannula 09/09 0000 94 Nasal 3.0L Cannula 09/08 2223 97.9 96 24 140/60 94 Nasal 3.0L Cannula 09/08 2051 71 118/70 09/08 1600 Nasal 3.0L Cannula 09/08 1400 98.8 72 18 106/56 92 Nasal 3.0L Cannula 09/08 1011 88 122/84 09/08 1011 88 122/84 09/08 0800 94 Nasal 3.0L Cannula Intake & Output 09/09 0800 09/09 0000 09/08 1600 09/08 0800 09/08 0000 09/07 1600 Intake Total 385 527 1630 525 991 5682 Output Total 200 320 300 100 Balance 150 320 855 900 550 900 Intake, IV 20 125 164 035 1018 Intake, Oral 355 908 7958 300 250 Output, Urine 200 320 300 100 Physical Exam: Well-developed well-nourished no apparent distress. HEENT: Atraumatic, Neck: Supple, Respiratory: No respiratory distress Extremities: No edema, no calf pain Right hip, dressing change, mild amount of bloody drainage, mild thigh swelling Neurovascularly intact, no calf pain Neuro: Alert and confused Skin: Warm and dry, no rash on exposed skin Results Last 48 Hours of Labs: Laboratory Tests 09/09 09/08 0710 0618 Chemistry Sodium (137 - 145 mmol/L) Pending 138 Potassium (3.5 - 5.1 mmol/L) Pending 4.7 Chloride (98 - 107 mmol/L) Pending 107 Carbon Dioxide (22 - 30 mmol/L) Pending 23 Anion Gap (5 - 16) Pending 8 BUN (7 - 17 mg/dL) Pending 31 H Creatinine (0.5 - 1.0 mg/dL) Pending 0.8 Estimated GFR (>60 ml/min) > 60 BUN/Creatinine Ratio (7 - 25 %) Pending 38.8 H Hematology CBC w Diff Pending MAN DIFF ORDERED WBC (4.8 - 10.8 /CUMM) Pending 14.9 H RBC (4.20 - 5.40 /CUMM) Pending 3.06 L Hgb (12.0 - 16.0 G/DL) Pending 9.1 L Hct (37 - 47 %) Pending 27.5 L MCV (81.0 - 99.0 FL) Pending 90.1 MCH (27.0 - 31.0 PG) Pending 29.8 RDW (11.5 - 14.5 %) Pending 13.4 Plt Count (130 - 400 /CUMM) Pending 181 MPV (7.4 - 10.4 FL) Pending 9.4 Gran % (42.2 - 75.2 %) 89.2 H Lymphocytes % (20.5 - 51.1 %) 3.9 L Monocytes % (1.7 - 9.3 %) 6.7 Eosinophils % (0 - 5 %) 0 Basophils % (0.0 - 2.0 %) 0.2 Absolute Granulocytes (1.4 - 6.5 /CUMM) 13.3 H Absolute Lymphocytes (1.2 - 3.4 /CUMM) 0.6 L Absolute Monocytes (0.10 - 0.60 /CUMM) 1.0 H Absolute Eosinophils (0.0 - 0.7 /CUMM) 0 Absolute Basophils (0.0 - 0.2 /CUMM) 0 Platelet Estimate (ADEQUATE) VERIFIED BY SMEAR Basophilic Stippling 1+ PUBS MCHC (33.0 - 37.0 G/DL) Pending 33.0 09/07 0800 Chemistry Sodium (137 - 145 mmol/L) 139 Potassium (3.5 - 5.1 mmol/L) 4.5 Chloride (98 - 107 mmol/L) 104 Carbon Dioxide (22 - 30 mmol/L) 27 Anion Gap (5 - 16) 8 BUN (7 - 17 mg/dL) 35 H Creatinine (0.5 - 1.0 mg/dL) 0.7 Estimated GFR (>60 ml/min) > 60 BUN/Creatinine Ratio (7 - 25 %) 50.0 H Troponin I (< 0.11 ng/ml) < 0.01 25-OH Vitamin D Total (30 - 100 ng/ml) 23.8 L Hematology CBC w Diff NO MAN DIFF REQ WBC (4.8 - 10.8 /CUMM) 10.9 H RBC (4.20 - 5.40 /CUMM) 3.61 L Hgb (12.0 - 16.0 G/DL) 10.7 L Hct (37 - 47 %) 32.1 L MCV (81.0 - 99.0 FL) 89.0 MCH (27.0 - 31.0 PG) 29.7 RDW (11.5 - 14.5 %) 13.9 Plt Count (130 - 400 /CUMM) 193 MPV (7.4 - 10.4 FL) 9.2 Gran % (42.2 - 75.2 %) 71.7 Lymphocytes % (20.5 - 51.1 %) 14.6 L Monocytes % (1.7 - 9.3 %) 13.0 H Eosinophils % (0 - 5 %) 0.4 Basophils % (0.0 - 2.0 %) 0.3 Absolute Granulocytes (1.4 - 6.5 /CUMM) 7.8 H Absolute Lymphocytes (1.2 - 3.4 /CUMM) 1.6 Absolute Monocytes (0.10 - 0.60 /CUMM) 1.4 H Absolute Eosinophils (0.0 - 0.7 /CUMM) 0 Absolute Basophils (0.0 - 0.2 /CUMM) 0 PUBS MCHC (33.0 - 37.0 G/DL) 33.3 Assessment/Plan Assessment/Plan Postoperative day #2 status post right hip intratrochanteric fracture intramedullary nailing Continue current care per medical team, out of bed physical therapy,DVT prophylaxsis with eliquis, am labs pending, daily dry dressing change.
[2016-09-09 07:58] LABS: ABSOLUTE BASOPHIL COUNT 0 /CUMM (0.0-0.2); ABSOLUTE EOSINOPHIL COUNT 0 /CUMM (0.0-0.7); ABSOLUTE GRANULOCYTE CT 13.4 /CUMM (1.4-6.5); ABSOLUTE LYMPH COUNT 1.8 /CUMM (1.2-3.4); ABSOLUTE MONOCYTE COUNT 2.6 /CUMM (0.10-0.60); BASOPHIL % 0.3 % (0.0-2.0); EOSINOPHIL % 0 % (0-5); MEAN CORPUSCULAR HGB 29.8 PG (27.0-31.0); MEAN CORPUSCULAR HGB CONC 33.7 G/DL (33.0-37.0); MEAN CORPUSCULAR VOLUME 88.4 FL (81.0-99.0); MEAN PLATELET VOLUME 8.9 FL (7.4-10.4); PLATELET COUNT 204 /CUMM (130-400); RBC DISTRIBUTION WIDTH 13.3 % (11.5-14.5); RED BLOOD CELL CT 2.94 /CUMM (4.20-5.40); WHITE BLOOD CELL COUNT 17.9 /CUMM (4.8-10.8)
--- NOTE | 2016-09-09 08:38 | NUR ---
PT COMBATIVE THIS AM, ATTEMTPTED TO HIT MST WHILE CHANGING AND KICKED THIS RN WHEN ATTEMPTING TO VERBALLY CALM PATIENT. PT ATTEMPTING TO GET OUT OF BED AND YELLING IN [place]. IN BILATERAL UPPER WRIST RESTRAINTS FOR REMOVAL OF LINES. MD IN TO EVALUATE, PATIENT SAFETY MONITOR ORDERED FOR HIGH FALL RISK, CONFUSION. PSM AT BEDSIDE. ZYPREXA 2.5 MG IM GIVEN. PT MEDICATED FOR PAIN WELL. WILL CONTINUE TO MONITOR.
--- NOTE | 2016-09-09 11:18 | NUR ---
Physical Therapy: Attempted to see pt this morning. Pt extremely confused and now in soft wrist restraints. Not following commands to participate in skilled PT at this time. Will follow up as appropriate. Thank you.
--- NOTE | 2016-09-09 14:06 | Event Note ---
Event Note Event Note: Situation Rapid response called at 12:50PM Brief Patient is a 89 YO F s/p intramedullary nailing of right hip, POD #2. She has been altered and agitatied since morning, refused to take medications. We gave her 2 doses of 2.5mg zyprexa twice. 0.5mg IM haldol and 1mg IM haldol during rapid response. Her BP in the afternoon is 210/100mmHg, HR 110. Assessment and plan Hyperactive delirium in the setting of sleep deprivation and leukocytosis in a post op patient * Zyprexa and haldol is given * Psych consulted * Lopressor one dose for her BP - as not taken morning pills. * Haldol 2mg Q8 PRN for agitation * Trending white count.
[2016-09-09 14:45] VITALS: BP 138/76
--- NOTE | 2016-09-09 14:45 | Cons- Psychiatry ---
See Addendum Psychiatric Consult Date of Consult: 09/09/16 Reason for Consult: "Altered mentation, agitation, s/p R hip repair." Ordered by Dr. Sydni De La Fuente attending at time of order History of Present Illness: Identifying Info: 89-year-old female BIBA to [facility] on 09/06/2016 status post fall. Subsequently diagnosed with right hip fracture and admitted for surgical correction. CC: "I'm tired" HPI: Patient had surgery on 09/07/2016. She is first noted in the medical record to be experiencing confusion in the ultrasound applications specialist hours of 09/09/2016. Becoming combative, attempted to pull out her IV lines and was screaming out for her son as well as responding to visual hallucinations. At that time she was unable to be redirected. The patient had prior received a one-time dose of lorazepam. Dose of morphine was given at approximately 0800. Since that time she has received 2 doses of Zyprexa 2.5 mg, one dose of Haldol 0.5 mg, and most recently haloperidol 1 mg. She is reported to have had a positive response from medication. Of note the patient given dose of morphine in ED with no noted untoward effects. Collateral information received from patient's son and POA Rock Carlo. He reports that at present his mom is "very confused," "delusional," and responding to internal stimuli having asked him to pass her the cherries in the room. She is completely independent at home typically cooks, cleans and gardens. She is "very sharp." She has no history of cognitive impairment. PMH: Please see the H&P for a complete listing AD, status post stent to LAD in 2002, hypertension, hyperlipidemia, lumbar stenosis, lumbar radiculopathy, compression fractures, osteoporosis Past Psych History: None per family report Family Psych History: None per family report Substance History Per family report tobacco and wine occasionally Family Substance History: None per family report Social: . Born in [place]. Lives with son, Rock, who is reported to be POA. Formerly worked in [facility] [employer] for 20 years. Abuse/Trauma: Not obtained. Current Home Psychotropic Medications: None Current Hospital Psychotropic Medications: Med Ramelteon 8 MG PO AT BEDTIME 09/08/16 0100 Allergies: Coded Allergies: NO KNOWN ALLERGIES (02/27/12) Current Medications: Current Medications Sig/Dior Start time Last Medication Dose Route Stop Time Status Admin Acetaminophen 1,000 MG Q6 09/09 1200 AC 09/09 N/A 1 UNIT IV 1124 Acetaminophen 650 MG .STK-MED ONE 09/08 2049 DC PO 09/08 205 Acetaminophen 650 MG Q6P PRN 09/07 1630 AC 09/08 PO 2050 Apixaban 2.5 MG BID 09/08 1000 AC 09/08 PO 2049 Cyclobenzaprine HCl 5 MG AT BEDTIME 09/07 2200 DC 09/08 PO 2049 Docusate Sodium 100 MG BID 09/07 2200 AC 09/08 PO 2049 Guaifenesin 10 ML Q4P PRN 09/07 1615 AC 09/07 PO 2020 Haloperidol 1 MG ONCE ONE 09/09 1300 DC 09/09 IM 09/09 1301 1300 Haloperidol 0.5 MG ONCE ONE 09/09 1145 DC 09/09 IM 09/09 1146 1154 Lisinopril 10 MG DAILY 09/08 1000 AC 09/08 PO 1011 Lorazepam 0.5 MG ONCE ONE 09/09 0045 DC 09/09 IV 09/09 0046 0057 Melatonin 10 MG ONCE ONE 09/09 1115 DC PO 09/09 1116 Metoprolol Tartrate 5 MG ONCE ONE 09/09 1245 DC 09/09 IV 09/09 1246 1259 Metoprolol Tartrate 25 MG BID 09/08 1000 AC 09/08 PO 205 Morphine Sulfate 2 MG Q4P PRN 09/07 1630 DC 09/09 IV 0811 Nicotine 14 MG DAILY 09/08 1000 AC 09/09 TOP 1124 Olanzapine 2.5 MG ONCE ONE 09/09 0945 DC 09/09 IM 09/09 0946 0948 Olanzapine 2.5 MG ONCE ONE 09/09 0800 DC 09/09 IM 09/09 0801 0813 Ondansetron HCl 4 MG Q6P PRN 09/07 1630 AC IV Oxycodone/ 1 TAB Q6P PRN 09/07 1630 DC Acetaminophen PO Oxycodone/ 2 TAB Q6P PRN 09/07 1630 DC 09/07 Acetaminophen PO 1844 Patient Medication 1 ED .STK-MED ONE 09/09 1352 DC Teaching ED 09/09 1353 Polyethylene Glycol 17 GM DAILY 09/09 1040 AC PO Ramelteon 8 MG AT BEDTIME 09/08 0100 AC 09/08 PO 2050 Sodium Chloride 1,000 ML BOLUS ONE 09/09 1400 AC IV 09/09 1459 Sodium Chloride 1,000 ML BOLUS ONE 09/08 1700 CAN IV 09/08 1759 Past History Past Medical History Neurological: NONE EENT: NONE Cardiovascular: hypertension, hyperlipidemia Respiratory: NONE Gastrointestinal: NONE Hepatic: NONE Renal: NONE Musculoskeletal: osteoarthritis Psychiatric: NONE Endocrine: NONE Blood Disorders: NONE Cancer(s): NONE DISEASE CASE MANAGER/Reproductive: NONE Past Surgical History Surgical History: cardiac stent Psychosocial History Strengths/Capabilities: Supportive family, h/o of independent living Physical Limitations (Interventions): Current medical illness Psychiatric Treatment History Psych Treatment Psychiatric Treatment No Diagnosis: None previous Risk Factors: age (under 24/over 65), chronic/serious med cond. Substance Use/Abuse History Drug Use/Abuse Substances Used/Abused Yes (as above) Substance Abuse Treatment Substance Abuse Treatment Past Substance Abuse [place] No Assessment/Plan Mental Status Mental Status Exam: Presentation/Appearance: Unable to participate in interview in meaningful way. Hospital garb. Psychomtor agitation noted with pt reaching for IV. Sitter in place redirecting. Orientation: Self only, Date "September," Sensorium: Awake Eye contact: Poor Affect: Constricted Mood: "Tired" Depression: Unable to assess Anxiety: Unable to assess Thought Content: - Unable to assess Thought Process: Altered, confused Associations: Did not assess Speech: Minimal, dysarthic Language: Hebrew is [place] language Judgment: Impaired Insight: Impaired Cognition: Memory: Impaired at present Attention/Concentration: Impaired Fund of Knowledge: Did not assess Abstractions:Did not assess MMSE: Unable to complete Brief ROS Gait: Impaired Sleep: Impaired Appetite: Did not assess Energy: High IADLs/ADLs: With assist at present Lab Results: Laboratory Tests 09/09/16 1104: Urinalysis LIGHT H, Urine Color YEL, Urine Clarity CLEAR, Urine pH 6.0, Ur Specific [place] 1.015, Urine Protein NEG, Urine Ketones NEG, Urine Nitrite NEG, Urine Bilirubin NEG, Urine Urobilinogen 0.2, Ur Leukocyte Esterase NEG, Ur Microscopic SEDIMENT EXAMINED, Urine RBC 25-50 H, Urine Hemoglobin LARGE H, Urine Glucose NEG 09/09/16 0710: Anion Gap 8, Estimated GFR > 60, BUN/Creatinine Ratio 40.0 H, CBC w Diff NO MAN DIFF REQ, RBC 2.94 L, MCV 88.4, MCH 29.8, RDW 13.3, MPV 8.9, Gran % 75.0, Lymphocytes % 10.2 L, Monocytes % 14.5 H, Eosinophils % 0, Basophils % 0.3, Absolute Granulocytes 13.4 H, Absolute Lymphocytes 1.8, Absolute Monocytes 2.6 H, Absolute Eosinophils 0, Absolute Basophils 0, [facility] 33.7 09/08/16 0618: Anion Gap 8, Estimated GFR > 60, BUN/Creatinine Ratio 38.8 H, CBC w Diff MAN DIFF ORDERED, RBC 3.06 L, MCV 90.1, MCH 29.8, RDW 13.4, MPV 9.4, Gran % 89.2 H , Lymphocytes % 3.9 L, Monocytes % 6.7, Eosinophils % 0, Basophils % 0.2, Absolute Granulocytes 13.3 H, Absolute Lymphocytes 0.6 L, Absolute Monocytes 1.0 H, Absolute Eosinophils 0, Absolute Basophils 0, Platelet Estimate VERIFIED BY SMEAR, Basophilic Stippling 1+, [place] 33.0 09/07/16 0800: Anion Gap 8, Estimated GFR > 60, BUN/Creatinine Ratio 50.0 H, Troponin I < 0.01 , 25-OH Vitamin D Total 23.8 L, CBC w Diff NO [place] DIFF REQ, RBC 3.61 L, MCV 89.0, MCH 29.7, RDW 13.9, MPV 9.2, Gran % 71.7, Lymphocytes % 14.6 L, Monocytes % 13.0 H, Eosinophils % 0.4, Basophils % 0.3, Absolute Granulocytes 7.8 H, Absolute Lymphocytes 1.6, Absolute Monocytes 1.4 H, Absolute Eosinophils 0, Absolute Basophils 0, [facility] 33.3 09/06/162028: Anion Gap 11, Estimated GFR > 60, BUN/Creatinine Ratio 50.0 H, Glucose 162 H, Calcium 9.3, Total Bilirubin 0.5, AST 16, ALT 24, Alkaline Phosphatase 62, Troponin I < 0.01, Total Protein 6.6, Albumin 4.0, Globulin 2.6, Albumin/ Globulin Ratio 1.5, PT 11.0, INR 1.05, APTT 27, CBC w Diff NO MAN DIFF REQ, RBC 4.30, MCV 89.4, MCH 29.6, RDW 13.4, MPV 9.2, Gran % 59.7, Lymphocytes % 27.4, Monocytes % 11.0 H, Eosinophils % 1.6, Basophils % 0.3, Absolute Granulocytes 6.7 H, Absolute Lymphocytes 3.0, Absolute Monocytes 1.2 H, Absolute Eosinophils 0.2, Absolute Basophils 0, [facility] 33.1 Microbiology 09/07 0930 NASOPHARYN: Influenza Virus A & B Rapid Smear - COMP Diffential Diagnosis: Delirium of mixed etiology, severe rule out unspecified neurocognitive disorder Impression: 89 year old female presents status post surgery with acute confusion. She has no history of dementia, previous confusional state, or any mental illness. She has been experiencing poor sleep, had recent ortho surgery, and received medications that could potentially contribute to acute confusion. All three are likely contributing to current mental status. It would be prudent to facilitate sleep and try to avoid medications that could contribute to confusion. Provisional Treatment Plan: 1. Please continue to avoid benzodiazepines, opioid analgesics, and meds with strong anticholinergic properties as much as possible to prevent further confusion. 2. Please initiate the following nonpharmacologic interventions: -Avoid nursing and medical procedures during sleep hours whenever possible - Cluster at night interventions that must be completed as much as possible to minimize sleep disruption - Decrease noise patient area during sleeping hours - Reduce lighting at night - Ensure patient has any sensory aids close by that she regularly uses 3. Please ensure adequate pain control. 4. Please continue Ramelteon while in hospital. Consider increase in dose to 16mg qhs if pt tolerates. 5. For acute management of dangerous agitation consider Haldol 2mg q8h PRN PO. Please continue to monitor EKG, Mg & K on this medication. 6. Please rule out other potential causes of acute confusion including infection. Thank you for including psychiatry in this case. We will continue to follow.
--- NOTE | 2016-09-09 15:20 | NUR ---
PT HAS BW RESTRAINT ORDER IN BUT CAM TO THE FLOOR WITHOUT THEM. I CALLED OLIVIA AND ASKED THAT SHE DOCUMENT AND HAVE THEM D/C'D AMPARO
[2016-09-09 15:54] VITALS: BP 140/70
--- NOTE | 2016-09-09 16:26 | NUR ---
AT 1215 THIS RN WENT INTO ROOM TO CHECK ON PT. PT FOUND TO BE HAVING TREMORS AND APPAEARED IN DIFFERENT CONDITION THAN CHECK AT 1145. REMOVED BILATERAL WRIST RESTRAINTS AT THAT TIME. VITAL SIGNS TAKEN, BP 210/100, PULSE 110-120, TEMP 99.7, RR 24, 02 92% ON 3LNC. MD ZAINAB LUNDBERG SITTING OUTSIDE, NOTIFIED OF CHANGE IN STATUS AND CAME TO EVALUATE PT. WANTED TO PUSH IV LOPRESSOR AND SEE HOW PT REACTED. THIS RN GOT RISK COMPLIANCE MANAGER AND PT HR IN 140'S. RAPID RESPONSE CALLED AT 1221. PT TRANSFERRED TO TELE. SITTER DOWN WITH PT. REPORT GIVEN TO JUS HERNANDEZ.
--- NOTE | 2016-09-09 17:05 | NUR ---
PT IS GETTING AGITATED AND IS PULLING AT LINES, R SOFT WRIST WILL BE PLACED ISHMEL IS AT THE BEDSIDE FOR EVAL AND PUT IN ORDER. PO HALDOL WILL ALSO BE ORDERED.
--- NOTE | 2016-09-09 18:29 | PN- Cardiology ---
Subjective Subjective: * Patient appears uncomfortable with some confusion. No specific complaints of pain, shortness of breath, lightheadedness or palpitations. * sinus tachycardia * WBC is 17.9 with decreased H/H Objective Vital Signs and I&Os Vital Signs Date Time Temp Pulse Resp B/P B/P Pulse O2 O2 Flow FiO2 Mean Ox Delivery Rate 09/09 1554 98.2 109 16 140/70 94 09/09 1445 138/76 09/09 1417 Nasal 3.0L Cannula 09/09 1259 112 200/110 09/09 1130 88 124/80 09/09 1122 92 Nasal 3.0L Cannula 09/09 1109 Nasal 3.0L Cannula 09/09 0800 Nasal 3.0L Cannula 09/09 0640 97 20 130/60 99 Nasal 3.0L Cannula 09/09 0000 94 Nasal 3.0L Cannula 09/08 2223 97.9 96 24 140/60 94 Nasal 3.0L Cannula 09/08 2051 71 118/70 Intake & Output 09/09 1600 09/09 0800 09/09 0000 09/08 1600 09/08 0800 09/08 0000 Intake Total 800 039 081 3651 900 850 Output Total 200 320 300 Balance 800 150 320 855 900 550 Intake, IV 800 20 125 600 600 Intake, Oral 795 450 0805 300 250 Output, Urine 200 320 300 Physical Exam: General: WD/ WN female in mild distress, awake and confused Neck: no JVD Heart: tachycardic and regular Lungs: clear bilaterally Extremities: no edema Assessment/Plan Assessment/Plan * This patient appears hemodynamically stable following her surgery despite a modest drop in her H/H post procedure. There are no signs or complaints of ischemia or decompensated congestive heart failure. Continue Metoprolol, Lisinopril and Eliquis. * This patient does have confusion and is noted to have an increased QBC count. I would consider a workup for infection as a possible cause of her confusion. Please check a TSH and free T4 since hypothyroidism may be a source of decreased mentation. Continue telemetry? Yes
[2016-09-10 00:23] VITALS: BP 150/80
--- NOTE | 2016-09-10 06:47 | PN- Orthopedic ---
Subjective Subjective: POD#3 S/P ORIF RIGHT HIP FRACTURE RAPID RESPONSE YESTERDAY FOR CONFUSION/HYPERTENTION/TACHYCARDIA GIVEN ZYPREXA AND HALDOL ON TELE NOW VERY CONFUSED BUT TURNS HEAD TO NAME CALLED BP STABLE NOW, NO TACHYCARDIA O2 SAT OK Objective Vital Signs and I&Os Vital Signs Date Time Temp Pulse Resp B/P B/P Pulse O2 O2 Flow FiO2 Mean Ox Delivery Rate 09/10 0023 97.8 97 24 150/80 96 Nasal 2.0L Cannula 09/10 0000 96 Nasal 3.0L Cannula 09/09 2140 109 140/70 09/09 1750 96 Nasal 3.0L Cannula 09/09 1554 98.2 109 16 140/70 94 09/09 1445 138/76 09/09 1417 Nasal 3.0L Cannula 09/09 1259 112 200/110 09/09 1130 88 124/80 09/09 1122 92 Nasal 3.0L Cannula 09/09 1109 Nasal 3.0L Cannula 09/09 0800 Nasal 3.0L Cannula Intake & Output 09/10 0800 09/10 0000 09/09 1600 09/09 0800 09/09 0000 09/08 1600 Intake Total 180 800 570 458 0456 Output Total 200 320 Balance 180 800 150 320 855 Intake, IV 800 20 125 Intake, Oral 180 348 340 6948 Output, Urine 200 320 Physical Exam: CV: RRR LUNGS: CLEAR, DECREASED IN BASES ABD: SOFT, +BS EXT: DRSG CHANGED WOUND C/D/I THIGH SOFT LARGE AREA OF ECCHYMOSIS AROUND WOUND DISTAL PULSES INTACT Assessment/Plan Assessment/Plan ORTHO STABLE PLAN MAY BE OOB WBAT RIGHT LE WHEN MORE ALERT CONT ELIQUIS FOR DVT PROPHYLAXIS/STENTS STABLE FROM ORTHO STANDPOINT TO D/C TO [facility] TO BE REMOVED 14 DAYS POST OP F/U BRANDIN GRIMALDO IN OFFICE - CALL FOR APPT WILL SIGN OFF NOW BUT REMAIN AVAILABLE FOR IMMEDIATE CONSULT Core Measures/Miscellaneous Venous Thromboembolism VTE Risk Factors: Age > 40, Surgery VTE Contraindications: No Contraindications VTE Diagnosis: No VTE Type: NONE VTE Confirmed by (Test): NONE Beta [place] Is Beta [place]a a Home Med? Yes Antibiotics Is Patient on Antibiotics? No
--- NOTE | 2016-09-10 07:06 | PN- Housestaff ---
Subjective Follow-up For: RIGHT HIP INTERTROCHANTERIC FRACTURE S/P REPAIR DAY -3 Review of Systems Constitutional: Reports: see HPI. Objective Last 24 Hrs of Vital Signs/I&O Vital Signs Date Time Temp Pulse Resp B/P B/P Pulse O2 O2 Flow FiO2 Mean Ox Delivery Rate 09/10 0023 97.8 97 24 150/80 96 Nasal 2.0L Cannula 09/10 0000 96 Nasal 3.0L Cannula 09/09 2140 109 140/70 09/09 1750 96 Nasal 3.0L Cannula 09/09 1554 98.2 109 16 140/70 94 09/09 1445 138/76 09/09 1417 Nasal 3.0L Cannula 09/09 1259 112 200/110 09/09 1130 88 124/80 09/09 1122 92 Nasal 3.0L Cannula 09/09 1109 Nasal 3.0L Cannula 09/09 0800 Nasal 3.0L Cannula Intake & Output 09/10 0800 09/10 0000 09/09 1600 Intake Total 180 800 Output Total Balance 180 800 Intake, IV 800 Intake, Oral 180 Physical Exam General Appearance: Alert Current Medications: Current Medications Sig/Dior Start time Last Medication Dose Route Stop Time Status Admin Acetaminophen 1,000 MG Q6 09/09 1200 AC 09/10 N/A 1 UNIT IV 0548 Acetaminophen 650 MG Q6P PRN 09/07 1630 AC 09/08 PO 2050 Apixaban 2.5 MG BID 09/08 1000 AC 09/09 PO 214 Celecoxib 100 MG BID 09/09 2200 AC PO 09/12 1001 Cyclobenzaprine HCl 5 MG AT BEDTIME 09/07 2200 DC 09/08 PO 2049 Docusate Sodium 100 MG BID 09/07 2200 AC 09/08 PO 2049 Guaifenesin 10 ML Q4P PRN 09/07 1615 AC 09/07 PO 202 Haloperidol 2 MG .STK-MED ONE 09/09 2140 DC PO 09/09 2141 Haloperidol 2 MG TID PRN 09/09 1715 AC 09/09 PO 1841 Haloperidol 1 MG ONCE ONE 09/09 1300 DC 09/09 IM 09/09 1301 1300 Haloperidol 0.5 MG ONCE ONE 09/09 1145 DC 09/09 IM 09/09 1146 1154 Lisinopril 10 MG DAILY 09/08 1000 AC 09/08 PO 1011 Melatonin 10 MG ONCE ONE 09/09 1115 DC PO 09/09 1116 Metoprolol Tartrate 5 MG ONCE ONE 09/09 1245 DC 09/09 IV 09/09 1246 1259 Metoprolol Tartrate 25 MG BID 09/08 1000 AC 09/09 PO 2140 Morphine Sulfate 2 MG Q4P PRN 09/07 1630 DC 09/09 IV 0811 Nicotine 14 MG DAILY 09/08 1000 AC 09/09 TOP 1124 Olanzapine 2.5 MG ONCE ONE 09/09 0945 DC 09/09 IM 09/09 0946 0948 Olanzapine 2.5 MG ONCE ONE 09/09 0800 DC 09/09 IM 09/09 0801 0813 Ondansetron HCl 4 MG Q6P PRN 09/07 1630 AC IV Oxycodone/ 1 TAB Q6P PRN 09/07 1630 DC Acetaminophen PO Oxycodone/ 2 TAB Q6P PRN 09/07 1630 DC 09/07 Acetaminophen PO 1844 Patient Medication 1 ED .STK-MED ONE 09/09 1352 DC Teaching ED 09/09 1353 Polyethylene Glycol 17 GM DAILY 09/09 1040 AC PO Ramelteon 8 MG AT BEDTIME 09/08 0100 AC 09/08 PO 2050 Sodium Chloride 1,000 ML BOLUS ONE 09/09 1400 DC 09/09 IV 09/09 1459 1503 Assessment/Plan Assessment: 89-year-old lady with h/o 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 Problem list/plan: Right hip intertrochanteric fracture s/p intramedullary nailing * RCRI of 0.9% - history of NV; cleared by cardiology for surgery. * Underwent right hip ORIF on 09/07/16 * POD #2 - postoperative course complicated by delirium * Cr remians stable with 4 point drop in H&H * continue Eliquis 2.5mg BID for DVT prophylaxis Hyperactive delirium * Likely postoperative vs sleep deprivation vs infectious * White count is increasing everyday -- 17 today * Afebrile, couldnt sleep through out the night * Psych consulted - appreciate their input * Received a total of 5mg Zyperxa, 1.5 mg haldol today * UA is clear today. * Trend white count and continue ramelteon at bedtime. Acute Blood loss anemia: * H&H at admission is 12.7/38 * H&H 12.7/38 --> 10.7/32.1 --> 9.1/27.5 --> 8.8/26 today * Goal Hb >8 in the setting of cardiac disease * No evidence of bleed so far. CAD status post PCI: * Maintained on INVENTORY CONTROL ASSOCIATE metoprolol 25mg BID, lisinopril 10mg, Statin. Aspirin was held on admission in anticipation of surgery. * ECHO shows EF 60%, mild TR, AR, Pulmonary regurgitation. Hypertension * Metoprolol tartarate 25mg BID and lisinopril 10mg daily * Conitnue for now. * Patient refused to take pills today. DVT prophylaxis - Eliquis 2.5mg BID. Full code
--- NOTE | 2016-09-10 07:45 | PN- Housestaff ---
[facility]INT[facility] 09/10/16 0745: Subjective Follow-up For: Right hip fracture s/p repair 2 days Altered mentation - acute hyperactive delirium Tele-Events Since Last Visit: Multiple bones of 4 beats, supraventricular tachycardia up to 200. Subjective: Afebrile, hemodynamically stable, tachycardia, and saturating well on 3 L of oxygen. Patient looks more awake and oriented comparing to yesterday. She still required safety monitoring. Patient denies any current active complaints. Review of Systems Constitutional: Reports: no symptoms. Objective Last 24 Hrs of Vital Signs/I&O Vital Signs Date Time Temp Pulse Resp B/P B/P Pulse O2 O2 Flow FiO2 Mean Ox Delivery Rate 09/10 1422 Nasal 3.0L Cannula 09/10 1152 120 120/80 09/10 0918 120 120/80 09/10 0823 97.9 98 20 112/50 95 Nasal 3.0L Cannula 09/10 0800 Nasal 3.0L Cannula 09/10 0023 97.8 97 24 150/80 96 Nasal 2.0L Cannula 09/10 0000 96 Nasal 3.0L Cannula 09/09 2140 109 140/70 09/09 1750 96 Nasal 3.0L Cannula 09/09 1554 98.2 109 16 140/70 94 09/09 1445 138/76 Intake & Output 09/10 1600 09/10 0800 09/10 0000 Intake Total 120 530 Output Total Balance 120 530 Intake, IV 25 Intake, Oral 120 505 Number 0 Bowel Movements Patient 58.967 kg Weight Physical Exam General Appearance: Alert, Cooperative, No Acute Distress, disorianted HEENT: Atraumatic, PERRLA, EOMI, Mucous Membr. moist/pink Cardiovascular: Regular Rate, Normal S1, Normal S2, No Murmurs Lungs: Clear to Auscultation, Normal Air Movement Abdomen: Soft, No Tenderness Extremities: No Clubbing, No Cyanosis, No Edema Current Medications: Current Medications Sig/Dior Start time Last Medication Dose Route Stop Time Status Admin Acetaminophen 1,000 MG Q6 09/09 1200 AC 09/10 N/A 1 UNIT IV 1150 Acetaminophen 650 MG Q6P PRN 09/07 1630 AC 09/08 PO 2050 Apixaban 2.5 MG BID 09/08 1000 AC 09/10 PO 115 Celecoxib 100 MG BID 09/09 2200 AC 09/10 PO 09/12 1001 1152 Docusate Sodium 100 MG BID 09/07 2200 AC 09/08 PO 2050 Guaifenesin 10 ML Q4P PRN 09/07 1615 AC 09/07 PO 202 Haloperidol 2 MG .STK-MED ONE 09/09 2140 DC PO 09/09 2141 Haloperidol 2 MG TID PRN 09/09 1715 AC 09/10 PO 0918 Lisinopril 10 MG DAILY 09/08 1000 AC 09/10 PO 1152 Methadone HCl 5 MG DAILY 09/10 1300 AC PO Metoprolol Tartrate 25 MG BID 09/08 1000 AC 09/10 PO 0918 Nicotine 14 MG DAILY 09/08 1000 AC 09/10 TOP 1150 Ondansetron HCl 4 MG Q6P PRN 09/07 1630 AC IV Patient Medication 1 ED .STK-MED ONE 09/10 1416 DC Teaching ED 09/10 1417 Polyethylene Glycol 17 GM DAILY 09/09 1040 AC PO Ramelteon 8 MG AT BEDTIME 09/08 0100 AC 09/08 PO 2049 Sodium Chloride 1,000 ML BOLUS ONE 09/09 1400 DC 09/09 IV 09/09 1459 1503 Last 24 Hrs of Lab/Alexis Results Last 24 Hrs of Labs/Mics: Laboratory Tests 09/10/16 1400: Total T3 Pending 09/10/16 1400: Thyroid Stim Immunoglob Pending, Thyroglobulin Antibody Pending, Thyroid Peroxidase Ab Pending 09/10/16 1301: Thyroid Stim Immunoglob Cancelled 09/10/16 0615: Anion Gap 9, Estimated GFR > 60, BUN/Creatinine Ratio 31.7 H, CBC w Diff NO MAN DIFF REQ, RBC 2.80 L, MCV 88.5, MCH 29.6, RDW 13.3, MPV 8.9, Gran % 76.5 H, Lymphocytes % 9.5 L, Monocytes % 13.7 H, Eosinophils % 0, Basophils % 0.3, Absolute Granulocytes 11.4 H, Absolute Lymphocytes 1.4, Absolute Monocytes 2.0 H, Absolute Eosinophils 0, Absolute Basophils 0, PUBS MCHC 33.5 09/09/16 1500: Troponin I 0.09 Assessment/Plan Assessment: 89-year-old lady with h/o 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 Problem list/plan: #Right hip intertrochanteric fracture s/p intramedullary nailing Underwent right hip ORIF on 09/07/16 POD #3. postoperative course complicated by delirium. Cr remians stable with 4 point drop in H&H. Orthopedic cleared patient for discharge to short-term rehabilitation * continue Eliquis 2.5mg BID for DVT prophylaxis * Cam to be removed 14 days postop * Haloperidol 2 mg 3 times a day when necessary by mouth for agitation * Patient to follow up with Dr. Moran in the office #Post operative delirium Most likely multifactorial including old age, drug-induced, questionable infection (leukocytosis )and postoperative. WBCs improved today. Patient was found to have elevated free T4 with a low TSH. * avoid benzodiazepines, opioid analgesics, and meds with strong anticholinergic properties * We will use Celecoxib for pain * increase ramelteon dose to 16 mg qhs. * Patient hyperthyroidism will be treated as per endocrinology #Hyperthyroidism As part of delirium workup, TSH was found to be low and T4 was found to be high. Endocrinology was consulted and they recommended the following. * start methimazole 5 mg once a day * Continue metoprolol 25 mg twice a day * Thyroid stimulating immunoglobulin. * Total T3 * Ultrasound of her thyroid to check for nodules. When patient is stable #CAD status post PCI: Maintained on CLINICAL AIDE metoprolol 25mg BID, lisinopril 10mg, Statin. ECHO shows EF 60%, mild TR, AR, Pulmonary regurgitation. * We will discuss the right time to restart aspirin #Hypertension * Metoprolol tartarate 25mg BID * lisinopril 10mg daily Heart healthy diet DVT ppx Eliquis 2.5mg BID. Full code Problem List: 1. Hip fracture, right Pain Ratin Pain Location: hip Pain Goal: Remain pain free Pain Plan: See A&P Tomorrow's Labs & Rationales: TFT CBC MEMO TITUS MD 09/10/16 1226: Attending Review Statement Attending Statement Attending MD Statement: examined this patient, discuss w/resident/PA/SENIOR STACK ENGINEER, agreed w/resident/PA/SENIOR STACK ENGINEER, reviewed EMR data (avail), discussed with nursing, discussed with case mgmt, amended to note Attending Assessment/Plan: The patient was seen and discussed with house staff. Agree with plan of care. Appreciate cardiology input. TFT's c/w hyperthyroid and monitor showing SVT and some 3-4 beat runs. Will continue Metoprolol and obtain Endocrinology consult ( Dr. Penaloza to see). ?toxic nodular goiter.
[2016-09-10 08:01] LABS: ABSOLUTE BASOPHIL COUNT 0 /CUMM (0.0-0.2); ABSOLUTE EOSINOPHIL COUNT 0 /CUMM (0.0-0.7); ABSOLUTE GRANULOCYTE CT 11.4 /CUMM (1.4-6.5); ABSOLUTE LYMPH COUNT 1.4 /CUMM (1.2-3.4); BASOPHIL % 0.3 % (0.0-2.0); EOSINOPHIL % 0 % (0-5); GRANULOCYTE % 76.5 % (42.2-75.2); HEMATOCRIT 24.8 % (37-47); MEAN CORPUSCULAR HGB 29.6 PG (27.0-31.0); MEAN CORPUSCULAR HGB CONC 33.5 G/DL (33.0-37.0); MEAN CORPUSCULAR VOLUME 88.5 FL (81.0-99.0); MEAN PLATELET VOLUME 8.9 FL (7.4-10.4); PLATELET COUNT 206 /CUMM (130-400); RBC DISTRIBUTION WIDTH 13.3 % (11.5-14.5); WHITE BLOOD CELL COUNT 14.8 /CUMM (4.8-10.8)
--- NOTE | 2016-09-10 08:21 | PN- Psychiatry ---
Assessment/Plan Impression: Identifying Info: 89-year-old female BIBA to [facility] on 09/06/2016 status post fall. Subsequently diagnosed with right hip fracture and admitted for surgical correction. She has no psych hx, consult requested for aggitation and confusion in the context of delirium. SUBJECTIVE "I feel relaxed." Pt is confused, alternating between Tajik and Algerian. Unable to respond to questions at this time. Brief ROS Gait: Imparied Sleep: Poor, frequent awakenings Appetite: Did not assess OBJECTIVE Mental Status Exam Presentation/Appearance: Unable to participate in interview in meaningful way. Hospital garb. Sitter in place. Orientation: Self only Sensorium: Awake Eye contact: Poor Affect: Constricted Mood: "Tired" Depression: Unable to assess Anxiety: Unable to assess Thought Content: - Pt is experiencing AVH Thought Process: Altered, confused Associations: Did not assess Speech: Minimal, dysarthic Language: Algerian is [place] language Judgment: Impaired Insight: Impaired Cognition: Memory: Impaired at present Attention/Concentration: Impaired Fund of Knowledge: Did not assess Abstractions:Did not assess MMSE: Unable to complete Per staff report, the pt slept poorly last night. She often awoke speaking in Algerian to unseen visitors in the room. The patient received one dose of Haldol yesterday afternoon. ASSESSMENT 89 year old female presents status post surgery with acute confusion. She has no history of dementia, previous confusional state, or any mental illness. She is currently still experiencing acute confusional state. Her sleep remains poor. He appears to have responded to dose of Haldol. Diagnosis Delirium of mixed etiology, severe rule out unspecified neurocognitive disorder A total of 30 minutes was spent with the patient with more than 50% of the time spent in counseling and/or coordination of care. Suggestion: 1. Please increase ramelteon dose to 16 mg qhs. 2. Please continue Haldol as currently ordered continue to monitor EKG and electrolytes. 3. Please continue to avoid benzodiazepines, opioid analgesics, and meds with strong anticholinergic properties as much as possible to prevent further confusion. 4. Please continue the following nonpharmacologic interventions: -Avoid nursing and medical procedures during sleep hours whenever possible - Cluster at night interventions that must be completed as much as possible to minimize sleep disruption - Decrease noise patient area during sleeping hours - Reduce lighting at night - Ensure patient has any sensory aids close by that she regularly uses 5. Please ensure adequate pain control. 6. Please continue to rule out other potential causes of delirium. Thank you for including psychiatry in this case. We will continue to follow. Subjective Subjective: as above Objective Last 24 Hrs of Vital Signs/I&O Current Medications Sig/Dior Start time Last Medication Dose Route Stop Time Status Admin Acetaminophen 1,000 MG Q6 09/09 1200 AC 09/10 N/A 1 UNIT IV 0548 Acetaminophen 650 MG Q6P PRN 09/07 1630 AC 09/08 PO 2050 Apixaban 2.5 MG BID 09/08 1000 AC 09/09 PO 214 Celecoxib 100 MG BID 09/09 2200 AC PO 09/12 100 Cyclobenzaprine HCl 5 MG AT BEDTIME 09/07 220 DC 09/08 PO 2049 Docusate Sodium 100 MG BID 09/07 2200 AC 09/08 PO 2049 Guaifenesin 10 ML Q4P PRN 09/07 1615 AC 09/07 PO 202 Haloperidol 2 MG .STK-MED ONE 09/09 2140 DC PO 09/09 2141 Haloperidol 2 MG TID PRN 09/09 1715 AC 09/09 PO 1841 Haloperidol 1 MG ONCE ONE 09/09 1300 DC 09/09 IM 09/09 1301 1300 Haloperidol 0.5 MG ONCE ONE 09/09 1145 DC 09/09 IM 09/09 1146 1154 Lisinopril 10 MG DAILY 09/08 1000 AC 09/08 PO 1011 Melatonin 10 MG ONCE ONE 09/09 1115 DC PO 09/09 1116 Metoprolol Tartrate 5 MG ONCE ONE 09/09 1245 DC 09/09 IV 09/09 1246 1259 Metoprolol Tartrate 25 MG BID 09/08 1000 AC 09/09 PO 2140 Morphine Sulfate 2 MG Q4P PRN 09/07 1630 DC 09/09 IV 0811 Nicotine 14 MG DAILY 09/08 1000 AC 09/09 TOP 1124 Olanzapine 2.5 MG ONCE ONE 09/09 0945 DC 09/09 IM 09/09 0946 0948 Ondansetron HCl 4 MG Q6P PRN 09/07 1630 AC IV Oxycodone/ 1 TAB Q6P PRN 09/07 1630 DC Acetaminophen PO Oxycodone/ 2 TAB Q6P PRN 09/07 1630 DC 05/28 Acetaminophen PO 1844 Patient Medication 1 ED .STK-MED ONE 09/09 1352 DC Teaching ED 09/09 1353 Polyethylene Glycol 17 GM DAILY 09/09 1040 AC PO Ramelteon 8 MG AT BEDTIME 09/08 0100 AC 09/08 PO 2050 Sodium Chloride 1,000 ML BOLUS ONE 09/09 1400 DC 09/09 IV 09/09 1459 1503 Laboratory Tests 09/10/16 0615: Anion Gap 9, Estimated GFR > 60, BUN/Creatinine Ratio 31.7 H, CBC w Diff Pending, WBC Pending, RBC Pending, Hgb Pending, Hct Pending, MCV Pending, MCH Pending, RDW Pending, Plt Count Pending, MPV Pending, PUBS MCHC Pending 09/09/16 1500: Troponin I 0.09 09/09/16 1336: Troponin I Cancelled 09/09/16 1104: Urinalysis LIGHT H, Urine Color YEL, Urine Clarity CLEAR, Urine pH 6.0, Ur Specific [place] 1.015, Urine Protein NEG, Urine Ketones NEG, Urine Nitrite NEG, Urine Bilirubin NEG, Urine Urobilinogen 0.2, Ur Leukocyte Esterase NEG, Ur Microscopic SEDIMENT EXAMINED, Urine RBC 25-50 H, Urine Hemoglobin LARGE H, Urine Glucose NEG Vital Signs Date Time Temp Pulse Resp B/P B/P Pulse O2 O2 Flow FiO2 Mean Ox Delivery Rate 09/10 0023 97.8 97 24 150/80 96 Nasal 2.0L Cannula 09/10 0000 96 Nasal 3.0L Cannula 09/09 2140 109 140/70 09/09 1750 96 Nasal 3.0L Cannula 09/09 1554 98.2 109 16 140/70 94 09/09 1445 138/76 09/09 1417 Nasal 3.0L Cannula 09/09 1259 112 200/110 09/09 1130 88 124/80 09/09 1122 92 Nasal 3.0L Cannula 09/09 1109 Nasal 3.0L Cannula Intake & Output 09/10 1600 09/10 0800 09/10 0000 Intake Total 180 Output Total Balance 180 Intake, Oral 180
[2016-09-10 08:23] VITALS: BP 112/50
--- NOTE | 2016-09-10 08:57 | NUR ---
Physical Therapy. Pt transfered to tele w/ HTN and delirium on 09/09/16. Medical team reports pt is not yet stable to resume PT. Pt placed on hold w/ PT at this time. Please reconsult when medically stable and appropriate.
--- NOTE | 2016-09-10 09:36 | NUR ---
Physical Therapy: Pt's chart reviewed this morning for treatment. Pt had RR yesterday afternoon and was transfered to [facility] due to high blood pressure and tachycardia. Will place pt on hold from skilled PT at this time due to decline in medical status. Please re-consult when pt is medically stable and appropriate. Thank you.
--- NOTE | 2016-09-10 12:46 | Cons- Endocrinology ---
General Information and HPI Consulting Request Date of Consult: 09/10/16 Requested By: medical team Reason for Consult: abnormal thyroid tests Source of Information: old records Exam Limitations: unable to give history, confusion History of Present Illness: This 89-year-old woman was admitted after a fall at home. She fractured her hip. The patient is confused and cannot give me a history at this time. However her thyroid tests of come back abnormal with a suppressed TSH of less than 0.015 and a free T4 of 3.18. Review of the records in to [facility] reveals that the patient had suppressed TSH going back as far as 2008 to 2009. At times it would be completely suppressed and at other times below the lower normal range. Apparently the patient has not been diagnosed with thyroid disease in the past. Allergies/Medications Allergies: Coded Allergies: NO KNOWN ALLERGIES (02/27/12) Home Med List: Aspirin (Aspirin*) 325 MG TABLET 1 TAB PO DAILY HEART (Reported) Lisinopril 10 MG TABLET 1 TAB PO DAILY BLOOD PRESSURE (Reported) Metoprolol Tartrate 25 MG TABLET 1 TAB PO BID BLOOD PRESSURE (Reported) Naproxen Sodium (Aleve) 220 MG TABLET PAIN (Reported) Current Medications: Current Medications Sig/Dior Start time Last Medication Dose Route Stop Time Status Admin Acetaminophen 1,000 MG Q6 09/09 1200 AC 09/10 N/A 1 UNIT IV 1150 Acetaminophen 650 MG Q6P PRN 09/07 1630 AC 09/08 PO 205 Apixaban 2.5 MG BID 09/08 1000 AC 09/10 PO 1152 Celecoxib 100 MG BID 09/09 2200 AC 09/10 PO 09/12 1001 1152 Docusate Sodium 100 MG BID 09/07 2200 AC 09/08 PO 2050 Guaifenesin 10 ML Q4P PRN 09/07 1615 AC 09/07 PO 2021 Haloperidol 2 MG .STK-MED ONE 09/09 2140 DC PO 09/09 2141 Haloperidol 2 MG TID PRN 09/09 1715 AC 09/10 PO 0918 Haloperidol 1 MG ONCE ONE 09/09 1300 DC 09/09 IM 09/09 1301 1300 Lisinopril 10 MG DAILY 09/08 1000 AC 09/10 PO 1152 Metoprolol Tartrate 5 MG ONCE ONE 09/09 1245 DC 09/09 IV 09/09 1246 1259 Metoprolol Tartrate 25 MG BID 09/08 1000 AC 09/10 PO 0918 Morphine Sulfate 2 MG Q4P PRN 09/07 1630 DC 09/09 IV 0811 Nicotine 14 MG DAILY 09/08 1000 AC 09/10 TOP 1150 Ondansetron HCl 4 MG Q6P PRN 09/07 1630 AC IV Patient Medication 1 ED .STK-MED ONE 09/09 1352 DC Teaching ED 09/09 1353 Polyethylene Glycol 17 GM DAILY 09/09 1040 AC PO Ramelteon 8 MG AT BEDTIME 09/08 0100 AC 09/08 PO 2050 Sodium Chloride 1,000 ML BOLUS ONE 09/09 1400 DC 09/09 IV 09/09 1459 1503 Past History Travel History Traveled to [place] past 21 day No Medical History Blood Transfusion Hx: No Neurological: NONE EENT: NONE Cardiovascular: hypertension, hyperlipidemia Respiratory: NONE Gastrointestinal: NONE Hepatic: NONE Renal: NONE Musculoskeletal: osteoarthritis Psychiatric: NONE Endocrine: NONE Blood Disorders: NONE Cancer(s): NONE ENTERPRISE SOFTWARE ENGINEER/Reproductive: NONE Other Medical Hx: Hypertension, dyslipidemia, coronary artery disease status post anterior wall ND with stent to the LAD in 2002, lumbar stenosis with lumbar radiculopathy, compression fractures, osteoporosis, and carpal tunnel release. Surgical History Surgical History: cardiac stent Family History Relations & Conditions If Any: MOTHER FH: stroke, Onset: 60+. Psychosocial History Where Do You Live? Home Who Do You Live With? child Services at Home: None Primary Language: Sami Smoking Status: Current Everyday Smoker ETOH Use: occasional use Illicit Drug Use: denies illicit drug use Functional Ability ADLs Independent: dressing, eating, toileting, bathing. Ambulation: cane, walker IADLs Independent: housework, food prep. Exam & Diagnostic Data Last 24 Hrs of Vital Signs/I&O Vital Signs Date Time Temp Pulse Resp B/P B/P Pulse O2 O2 Flow FiO2 Mean Ox Delivery Rate 09/11 0009 98.0 69 20 128/58 100 Nasal Cannula 09/11 0000 Nasal 3.0L Cannula 09/10 2126 85 120/60 09/10 1611 98.7 80 20 118/70 98 Nasal 2.0L Cannula 09/10 1600 Nasal 3.0L Cannula 09/10 1436 Nasal 3.0L Cannula 09/10 1434 Nasal 3.0L Cannula 09/10 1422 Nasal 3.0L Cannula 09/10 1152 120 120/80 09/10 0918 120 120/80 09/10 0823 97.9 98 20 112/50 95 Nasal 3.0L Cannula 09/10 0800 Nasal 3.0L Cannula Intake & Output 09/11 0800 09/11 0000 09/10 1600 Intake Total 440 710 470 Output Total 2 Balance 440 708 470 Intake, IV 200 110 25 Intake, Oral 240 600 445 Number 1 0 Bowel Movements Output, Other 2 Patient 130 lb Weight Physical Exam General Appearance: sedated, lethargic Head: normal appearance Eyes: Bilateral: normal appearance. Neck: normal inspection Cardiovascular: tachycardia Gastrointestinal: normal bowel sounds, soft Extremities: no edema Labs/Alexis Results: Laboratory Tests 09/11 09/11 09/10 09/10 09/10 0615 0100 1400 1400 1301 Chemistry Sodium (137 - 145 mmol/L) 140 Cancelled Potassium (3.5 - 5.1 mmol/L) 4.2 Cancelled Chloride (98 - 107 mmol/L) 102 Cancelled Carbon Dioxide (22 - 30 mmol/L) 28 Cancelled Anion Gap (5 - 16) 10 Cancelled BUN (7 - 17 mg/dL) 30 H Cancelled Creatinine (0.5 - 1.0 mg/dL) 0.8 Cancelled Estimated GFR (>60 ml/min) > 60 BUN/Creatinine Ratio (7 - 25 %) 37.5 H Cancelled Magnesium (1.6 - 2.3 mg/dL) 2.2 TSH (0.270 - 4.200 uIU/mL) Pending Free T4 (0.85 - 1.93 ng/dL) Pending Total T3 (0.97 - 1.69 ng/mL) Pending 1.00 Thyroid Stim Immunoglob Pending Cancelled Hematology CBC w Diff Pending Cancelled WBC Pending Cancelled RBC Pending Cancelled Hgb Pending Cancelled Hct Pending Cancelled MCV Pending Cancelled MCH Pending Cancelled RDW Pending Cancelled Plt Count Pending Cancelled MPV Pending Cancelled PUBS MCHC Pending Cancelled Immunology Thyroglobulin Antibody (< 61 U/mL) < 15 Thyroid Peroxidase Ab (< 61 U/mL) < 28 Assessment/Plan Assessment/Plan This 89-year-old woman presented with a hip fracture. She has found to have elevated thyroid function tests with a repeat T4 of 3.18 and a suppressed TSH of less than 0.015. This consistent with hyperthyroidism. Review of the records in the [facility] computer reveals that the patient's TSH was completely completely suppressed in 2013 and was barely detectablel 2008 and 2009. Thus it appears that her hyperthyroidism may be long-standing. 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 The patient has evidence of tachycardia and confusion which could be related to her overactive thyroid. I would recommend beginning methimazole 5 mg once a day. She is already on a beta nivia in the form of metoprolol 25 mg twice a day. This should be adjusted by cardiology. The patient needs further workup including a blood tests for thyroid stimulating immunoglobulin. Further lab work should include a total T3 which should be elevated in cases of hyperthyroidism. When she is able to cooperate we also need an ultrasound of her thyroid to check for nodules. Consult Acknowledgment - Thank you for your consult request. - Thank you for your consult request.
--- NOTE | 2016-09-10 15:29 | NUR ---
Physical Therapy. PT re-consulted on this pt s/p transfer to tele. Spoke w/ dental intern who reports pt would be more appropriate for re-evaluation in the AM. PT will f/u as appropriate.
[2016-09-10 16:11] VITALS: BP 118/70
--- NOTE | 2016-09-10 16:11 | NUR ---
PT HAD MULTIPLE EPISODES OF JUMPING FROM NSR @ 90 BMP TO 220 BPM. THESE EPISODES LASTED JUST A FEW SECONDS AND THEN DROPPED BACK TO HER BASELINE [address] FRITZ AND [address] ZAMUDIO MADE AWARE. TOLD MULTIPLE TIMES DURING THE EPISODES.
--- NOTE | 2016-09-10 20:49 | PN- Cardiology ---
Subjective Subjective: * This patient is much more alert. She reports a discomfort over her left lower back. No chest discomfort or shortness of breath. * WBC is trending down to 14.8. * H/H is trending down to 8.3/ 24.8 Objective Vital Signs and I&Os Vital Signs Date Time Temp Pulse Resp B/P B/P Pulse O2 O2 Flow FiO2 Mean Ox Delivery Rate 09/10 1611 98.7 80 20 118/70 98 Nasal 2.0L Cannula 09/10 1600 Nasal 3.0L Cannula 09/10 1436 Nasal 3.0L Cannula 09/10 1434 Nasal 3.0L Cannula 09/10 1422 Nasal 3.0L Cannula 09/10 1152 120 120/80 09/10 0918 120 120/80 09/10 0823 97.9 98 20 112/50 95 Nasal 3.0L Cannula 09/10 0800 Nasal 3.0L Cannula 09/10 0023 97.8 97 24 150/80 96 Nasal 2.0L Cannula 09/10 0000 96 Nasal 3.0L Cannula 09/09 2140 109 140/70 Intake & Output 09/10 1600 09/10 0800 09/10 0000 09/09 1600 09/09 0800 09/09 0000 Intake Total 120 530 800 150 520 Output Total 200 Balance 120 530 800 150 320 Intake, IV 25 800 20 Intake, Oral 120 505 150 500 Number 0 Bowel Movements Output, Urine 200 Patient 130 lb Weight Physical Exam: General: WD/ WN female in mild distress, awake and confused Neck: no JVD Heart: regular rate and rhythm Lungs: clear bilaterally Extremities: no edema Assessment/Plan Assessment/Plan * This patient appears hemodynamically stable following her surgery despite a modest drop in her H/H post procedure. There are no signs or complaints of ischemia or decompensated congestive heart failure. Continue Metoprolol, Lisinopril and Eliquis. Continue to follow the H/H. * Patient is now on methimazole. Continue telemetry? Yes
[2016-09-11 00:09] VITALS: BP 128/58
--- NOTE | 2016-09-11 07:55 | PN- Endocrinology ---
Assessment/Plan Assessment: The patient is much better today. She is alert and oriented. Clearly has tremor of her hands. Her heart rate is 89 while on a beta nivia. Labs yesterday showed a TSH of less than 0.015 and a free T4 clearly elevated at 3.18. Total T3 however came back at 1.0. This should be elevated in cases of hyperthyroidism. Plan: Suggest repeat the patient's free T4, total T3, and TSH today. I would hold methimazole until we get these results. Subjective Subjective: Wants to go home Review of Systems Constitutional: Denies: chills, fever. Cardiovascular: Denies: chest pain. Respiratory: Denies: cough, short of breath. Gastrointestinal: Denies: abdominal pain. Skin: Reports: no symptoms. Objective Last 24 Hrs of Vital Signs/I&O Vital Signs Date Time Temp Pulse Resp B/P B/P Pulse O2 O2 Flow FiO2 Mean Ox Delivery Rate 09/11 000 98.0 69 20 128/58 100 Nasal Cannula 09/11 0000 Nasal 3.0L Cannula 09/10 2125 85 120/60 09/10 1611 98.7 80 20 118/70 98 Nasal 2.0L Cannula 09/10 1600 Nasal 3.0L Cannula 09/10 1436 Nasal 3.0L Cannula 09/10 1434 Nasal 3.0L Cannula 09/10 1422 Nasal 3.0L Cannula 09/10 1152 120 120/80 09/10 0918 120 120/80 09/10 0823 97.9 98 20 112/50 95 Nasal 3.0L Cannula 09/10 0800 Nasal 3.0L Cannula Intake & Output 09/11 0800 09/11 0000 09/10 1600 Intake Total 440 710 470 Output Total 2 Balance 440 708 470 Intake, IV 200 110 25 Intake, Oral 240 600 445 Number 1 0 Bowel Movements Output, Other 2 Patient 130 lb Weight Vital Signs Date Time Temp Pulse Resp B/P B/P Pulse O2 O2 Flow FiO2 Mean Ox Delivery Rate 09/11 0009 98.0 69 20 128/58 100 Nasal Cannula 09/11 0000 Nasal 3.0L Cannula 09/106 85 120/60 09/10 1611 98.7 80 20 118/70 98 Nasal 2.0L Cannula 09/10 1600 Nasal 3.0L Cannula 09/10 1436 Nasal 3.0L Cannula 09/10 1434 Nasal 3.0L Cannula 09/10 1422 Nasal 3.0L Cannula 09/10 1152 120 120/80 09/10 0918 120 120/80 09/10 0823 97.9 98 20 112/50 95 Nasal 3.0L Cannula 09/10 0800 Nasal 3.0L Cannula Intake & Output 09/11 0800 09/11 0000 09/10 1600 Intake Total 440 710 470 Output Total 2 Balance 440 708 470 Intake, IV 200 110 25 Intake, Oral 240 600 445 Number 1 0 Bowel Movements Output, Other 2 Patient 130 lb Weight Physical Exam General Appearance: well developed/nourished, alert, awake, anxious Head: normal appearance Neck: normal inspection Respiratory: normal breath sounds Cardiovascular: regular rate/rhythm Abdomen: normal bowel sounds Neurologic/Psychiatric: awake, alert, tremor of hands Current Medications: Current Medications Sig/Dior Start time Last Medication Dose Route Stop Time Status Admin Acetaminophen 1,000 MG Q6 09/09 1200 AC 09/11 N/A 1 UNIT IV 0611 Acetaminophen 650 MG Q6P PRN 09/07 1630 AC 09/08 PO 2050 Apixaban 2.5 MG BID 09/08 1000 AC 09/10 PO 2126 Aspirin 81 MG DAILY 09/10 1539 AC 09/10 PO 1850 Celecoxib 100 MG BID 09/09 2200 AC 09/10 PO 09/12 1001 2125 Docusate Sodium 100 MG BID 09/07 2200 AC 09/08 PO 205 Guaifenesin 10 ML .STK-MED ONE 09/10 2232 DC PO 09/10 2233 Guaifenesin 10 ML Q4P PRN 09/07 1615 AC 09/10 PO 2234 Haloperidol 2 MG TID PRN 09/09 1715 AC 09/10 PO 0918 Lisinopril 10 MG DAILY 09/08 1000 AC 09/10 PO 1152 Methadone HCl 5 MG DAILY 09/10 1300 DC PO Methimazole 5 MG DAILY 09/10 1540 AC 09/10 PO 1850 Metoprolol Tartrate 25 MG BID 09/08 1000 AC 09/10 PO 2126 Nicotine 14 MG DAILY 09/08 1000 AC 09/10 TOP 1150 Ondansetron HCl 4 MG Q6P PRN 09/07 1630 AC IV Patient Medication 1 ED .STK-MED ONE 09/10 1416 DC Teaching ED 09/10 1417 Polyethylene Glycol 17 GM DAILY 09/09 1040 AC PO Ramelteon 8 MG AT BEDTIME 09/08 0100 AC 09/10 PO 7795
[2016-09-11 08:07] VITALS: BP 100/50
[2016-09-11 08:09] LABS: ABSOLUTE BASOPHIL COUNT 0 /CUMM (0.0-0.2); ABSOLUTE EOSINOPHIL COUNT 0 /CUMM (0.0-0.7); ABSOLUTE LYMPH COUNT 1.7 /CUMM (1.2-3.4); ABSOLUTE MONOCYTE COUNT 2.1 /CUMM (0.10-0.60); BASOPHIL % 0 % (0.0-2.0); EOSINOPHIL % 0.1 % (0-5); GRANULOCYTE % 78.6 % (42.2-75.2); HEMATOCRIT 25.7 % (37-47); MEAN CORPUSCULAR HGB 29.7 PG (27.0-31.0); MEAN CORPUSCULAR HGB CONC 33.4 G/DL (33.0-37.0); MEAN CORPUSCULAR VOLUME 89.1 FL (81.0-99.0); PLATELET COUNT 267 /CUMM (130-400); RBC DISTRIBUTION WIDTH 13.2 % (11.5-14.5); RED BLOOD CELL CT 2.88 /CUMM (4.20-5.40); WHITE BLOOD CELL COUNT 17.8 /CUMM (4.8-10.8)
--- NOTE | 2016-09-11 08:11 | PN- Housestaff ---
See Addendum Subjective Follow-up For: 1.Right hip fracture 2.s/p repair 2 days 3.Altered mentation - acute hyperactive delirium Tele-Events Since Last Visit: Sinus rhythm, overnight patient had 3 beats run at 20:00, SVT up to 200. Subjective: Afebrile, hemodynamically stable, heart rate mainly in 90s, patient saturating well on 3 L of oxygen. No acute overnight events reported. Patient only complains of multiple sleep interruption for blood workup, blood glucose level and and vitals. Patient denies any current active complaints. Review of Systems Constitutional: Reports: no symptoms. Objective Last 24 Hrs of Vital Signs/I&O Vital Signs Date Time Temp Pulse Resp B/P B/P Pulse O2 O2 Flow FiO2 Mean Ox Delivery Rate 09/11 08 98.7 86 20 100/50 98 Nasal 3.0L Cannula 09/11 0009 98.0 69 20 128/58 100 Nasal Cannula 09/11 0000 Nasal 3.0L Cannula 09/10 2126 85 120/60 09/10 1611 98.7 80 20 118/70 98 Nasal 2.0L Cannula 09/10 1600 Nasal 3.0L Cannula 09/10 1436 Nasal 3.0L Cannula 09/10 1434 Nasal 3.0L Cannula 09/10 1422 Nasal 3.0L Cannula 09/10 1152 120 120/80 09/10 0918 120 120/80 Intake & Output 09/11 1600 09/11 0800 09/11 0000 Intake Total 440 710 Output Total 2 Balance 440 708 Intake, IV 200 110 Intake, Oral 240 600 Number 1 Bowel Movements Output, Other 2 Physical Exam General Appearance: Alert, Oriented X3, Cooperative, No Acute Distress HEENT: Atraumatic, PERRLA, EOMI, Mucous Membr. moist/pink Cardiovascular: Regular Rate, Normal S1, Normal S2, No Murmurs Lungs: Clear to Auscultation, Normal Air Movement Abdomen: Soft, No Tenderness Neurological: Normal Speech Extremities: No Clubbing, No Cyanosis, No Edema, UE tremors Assessment/Plan Assessment: 89-year-old lady with h/o 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 Problem list/plan: #Right hip intertrochanteric fracture s/p intramedullary nailing Underwent right hip ORIF on 09/07/16 POD #4.Orthopedic cleared patient for discharge to short-term rehabilitation * continue Eliquis 2.5mg BID for DVT prophylaxis * [place] to be removed 14 days postop * Patient to follow up with Dr. Moran in the office #Post operative delirium Most likely multifactorial including old age, drug-induced, sleep deprivation, questionable infection (leukocytosis )and postoperative. Patient was found to have elevated free T4 with a low TSH but normal total T3. * avoid benzodiazepines, opioid analgesics, and meds with strong anticholinergic properties * Haloperidol 2 mg 3 times a day when necessary by mouth for agitation * We will use Celecoxib for pain * ramelteon dose to 8 mg qhs. * We will follow all possible measurement to avoid interrupting patient night sleep #Postoperative acute normocytic anemia Patient hemoglobin was 12.7 prior to the procedure, hemoglobin has anticipated drop post surgery to 8.6. * Repeat CBC daily #Hyperthyroidism As part of delirium workup, TSH was found to be low and T4 was found to be high but T3 was found to be WNL which does not fits the picture of hyperthyroidism. TFT was repeated this AM and gave similar result. * Continue methimazole 5 mg once a day * Continue metoprolol 25 mg twice a day * Thyroid stimulating immunoglobulin. * If patient did not gets discharged today, we will order inpatient Ultrasound of her thyroid to check for nodules. * Patient will be instructed to repeat TSH, free T4 and total T3 after 2 weeks post dicharge. And to follow up with endo as outpt. #Supraventricular tachycardia/sinus tachycardia/short runs of V. tach Multiple sinus tachycardia, supraventricular tachycardia and short runs of V. tach beats were noticed on the telemetry. Patient continue to exhibit these arrhythmias even on metoprolol 25 mg. Blood pressure is running on the lower border of normal this a.m. patient has a questionable hyperthyroidism as mentioned above * Continue metoprolol * We'll follow cardiology recommendation * Continue telemetry monitoring #Leukocytosis Afebrile, hemodynamically stable, denies any current active pain. No symptom or signs suggestive of infection. * We will follow CBC daily #CAD status post PCI/Hypertension ECHO shows EF 60%, mild TR, AR, Pulmonary regurgitation. * Continue aspirin * Continue metoprolol 25 mg twice a day * Continue lisinopril 10 mg * Continue statin Heart healthy diet DVT ppx Eliquis 2.5mg BID. Full code Problem List: 1. Intertrochanteric fracture of right hip Pain Ratin Pain Location: Hip Pain Goal: Remain pain free Pain Plan: See A&P Tomorrow's Labs & Rationales: See A&P
--- NOTE | 2016-09-11 11:47 | NUR ---
HYPERGLYCEMIA: LUNCH TIME ACCUCHECK 226. NO COVERAGE LISTED ON EMAR. REPORTED TO DR FRITZ WHO STATES NO COVERAGE NEEDED AT THIS TIME AND WILL FOLLOW UP.
--- NOTE | 2016-09-11 13:40 | Transfer of Care Summary ---
Hospital Course Course Hospital Course: 89-year-old lady with h/o 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 Vitals on admission blood pressure 155/65, pulse 69, afebrile saturating 94% on room air. Labs pertinent for leukocytosis with a white blood cell count of 11,100, and H&H of 12.7/38.4, platelet count of 216,000. Serum chemistries revealed a sodium of 140, potassium of 4.7, BUN 40, creatinine 0.8 with serum glucose of 162. LFTs unremarkable with an AST/ALT of 16/24 with an alkaline phosphatase of 62. Coags revealed an INR of 1.05. X ray of chest: Prominent bilateral interstitial markings without a focal airspace consolidation. No significant interval change since the prior examination. EKG showed: Dermal sinus rhythm with a heart rate of 76, normal axis, Q waves in leads waves I and aVL, no ST-T changes normal NH interval of 149 and a QTC of 446. Problem list/plan: Right hip intertrochanteric fracture s/p intramedullary nailing Her RCRI of 0.9% - history of KS, cleared by cardiology for surgery. Underwent right hip ORIF on 09/07/16, tolerated procedure well. She was started on eliquis for DVT prophylaxis. On POD #2 - postoperative course complicated by delirium. Hyperactive delirium Likely postoperative vs sleep deprivation vs infectious. White count is increasing everyday -- 17 today. She remained Afebrile, couldnt sleep through out the night. She was very agitated although she received 2 doses of zyprexa, haldol remained very confused. She didnt take any of her pills since morning. She became tachycardic, hypertensive requiring tele transfer in the afternoon. Psych was consulted for further evaluation. Acute Blood loss anemia: H&H at admission is 12.7/38. However postoperatively trended with H&H 12.7/38 --> 10.7/32.1 --> 9.1/27.5 --> 8.8/26. Goal Hb >8 in the setting of cardiac disease. No evidence of bleed so far. CAD status post PCI: * Maintained on [employer] metoprolol 25mg BID, lisinopril 10mg, Statin. Aspirin was held on admission in anticipation of surgery. * ECHO shows EF 60%, mild TR, AR, Pulmonary regurgitation. Hypertension She was on Metoprolol tartarate 25mg BID and lisinopril 10mg daily, continued for now. DVT prophylaxis - Eliquis 2.5mg BID. Full code Complications: Acute hyperactive delirium Hypertension with tachycardia requiring tele transfer Significant Procedures: Right hip intramedullary nailing. Pertinent Lab Results: as above. Assessment/Plan: as above
[2016-09-11 17:03] VITALS: BP 118/54
--- NOTE | 2016-09-11 17:45 | PN- Cardiology ---
Subjective Subjective: * Patient is awake and alert with no complaints. * No significant dysrhythmia's * stable anemia * WBC count remains elevated Objective Vital Signs and I&Os Vital Signs Date Time Temp Pulse Resp B/P B/P Pulse O2 O2 Flow FiO2 Mean Ox Delivery Rate 09/11 1703 98.8 88 18 118/54 92 Nasal 3.0L Cannula 09/11 1224 Nasal 3.0L Cannula 09/11 1224 Nasal 3.0L Cannula 09/11 1221 Nasal 3.0L Cannula 09/11 1102 93 116/40 09/11 1102 93 116/40 09/11 0807 98.7 86 20 100/50 98 Nasal 3.0L Cannula 09/11 0800 98 Nasal 3.0L Cannula 09/11 0009 98.0 69 20 128/58 100 Nasal Cannula 09/11 0000 Nasal 3.0L Cannula 09/10 2126 85 120/60 Intake & Output 09/11 1600 09/11 0800 09/11 0000 09/10 1600 09/10 0800 09/10 0000 Intake Total 600 440 710 120 530 Output Total 2 Balance 600 440 708 120 530 Intake, IV 200 110 25 Intake, Oral 600 240 600 120 505 Number 1 0 Bowel Movements Output, Other 2 Patient 130 lb Weight Physical Exam: General: WD/ WN female in mild distress, awake and confused Neck: no JVD Heart: regular rate and rhythm Lungs: clear bilaterally Extremities: no edema Assessment/Plan Assessment/Plan * This patient appears hemodynamically stable following her surgery despite a modest drop in her H/H post procedure. Although still anemic there is no further downward trend in her H/H. There are no signs or complaints of ischemia or decompensated congestive heart failure. Continue Metoprolol, Lisinopril and Eliquis. Continue to follow the H/H. Continue telemetry? No
[2016-09-11 23:35] VITALS: BP 108/52
--- NOTE | 2016-09-12 07:08 | Event Note ---
Event Note Event Note: Was notified by the nurse (around 645 AM) that the pt was in SVT w/ HR 130's. Pt was asymptomatic at the time of examination. Afebrile, BP 110/72. As per the nursing staff, the pt was in SVT yesterday also. Tried vagal maneuver w/ no response. After setting up the monitor, and phototypesetting equipment monitor, Adensoine 6mg iv x 1 push(rapid) was administered. Pt was later found to be atrial fibrillation briefly, and after a few minutes converted to NSR. Resident was present at the time of event. Tried to reach the public speaking coach. Relayed the information to the am team.
--- NOTE | 2016-09-12 07:44 | PN- Endocrinology ---
Assessment/Plan Assessment: She remained alert and oriented.. Clearly has tremor of her hands. Her heart rate is 89 while on a beta nivia. Whether she had episode of SVT this morning. Labs yesterday showed a TSH of less than 0.015 and a free T4 clearly elevated at 3.03. Total T3 however came back at 1.0. These labs are almost identical to the previous labs. Total T3 should be elevated in cases of hyperthyroidism. Plan: Suggest continue methimazole 5 mg twice a day. Cardiology to adjust medications for arrhythmia. The patient should have a thyroid ultrasound today. We can schedule a thyroid scan and uptake for Thursday. We need to monitor the patient's white blood count and liver function tests while on methimazole.
[2016-09-12 08:01] LABS: ABSOLUTE BASOPHIL COUNT 0 /CUMM (0.0-0.2); ABSOLUTE EOSINOPHIL COUNT 0.1 /CUMM (0.0-0.7); ABSOLUTE GRANULOCYTE CT 12.9 /CUMM (1.4-6.5); ABSOLUTE LYMPH COUNT 1.7 /CUMM (1.2-3.4); ABSOLUTE MONOCYTE COUNT 2.1 /CUMM (0.10-0.60); BASOPHIL % 0.2 % (0.0-2.0); EOSINOPHIL % 0.5 % (0-5); GRANULOCYTE % 76.9 % (42.2-75.2); HEMATOCRIT 23.5 % (37-47); MEAN CORPUSCULAR HGB 29.7 PG (27.0-31.0); MEAN CORPUSCULAR HGB CONC 33.3 G/DL (33.0-37.0); MEAN CORPUSCULAR VOLUME 89.2 FL (81.0-99.0); MEAN PLATELET VOLUME 8.9 FL (7.4-10.4); PLATELET COUNT 244 /CUMM (130-400); RBC DISTRIBUTION WIDTH 13.6 % (11.5-14.5); RED BLOOD CELL CT 2.63 /CUMM (4.20-5.40); WHITE BLOOD CELL COUNT 16.8 /CUMM (4.8-10.8)
[2016-09-12 08:23] VITALS: BP 122/60
--- NOTE | 2016-09-12 08:37 | PN- Housestaff ---
See Addendum Subjective Follow-up For: 1.Right hip fracture 2.s/p repair 6 days ago 3.Altered mentation - acute hyperactive delirium Tele-Events Since Last Visit: Normal sinus rhythm heartrate 72-97, this morning around 06:50 patient had SVT up to 180 (event note), patient was managed with IV adenosine. Subjective: Afebrile, hemodynamically stable, and saturating well on 3 L oxygen. Patient only complains is sleep deprivation because of multiple medical intervention during the night. Review of Systems Constitutional: Reports: no symptoms. Objective Last 24 Hrs of Vital Signs/I&O Vital Signs Date Time Temp Pulse Resp B/P B/P Pulse O2 O2 Flow FiO2 Mean Ox Delivery Rate 09/12 0846 98 122/60 09/12 0846 98 122/60 09/12 0823 98.5 98 20 122/60 97 Nasal 3.0L Cannula 09/12 0000 94 Nasal 3.0L Cannula 09/11 2335 98.2 78 18 108/52 96 Nasal Cannula 09/11 2333 96 108/70 09/11 1703 98.8 88 18 118/54 92 Nasal 3.0L Cannula 09/11 1224 Nasal 3.0L Cannula 09/11 1224 Nasal 3.0L Cannula 09/11 1221 Nasal 3.0L Cannula 09/11 1102 93 116/40 09/11 1102 93 116/40 Intake & Output 09/12 1600 02 0800 09/12 0000 Intake Total 465 400 Output Total 175 Balance 290 400 Intake, IV 225 Intake, Oral 240 400 Number 1 Bowel Movements Output, Urine 175 Physical Exam General Appearance: Alert, Oriented X3, Cooperative, No Acute Distress HEENT: Atraumatic, PERRLA, EOMI, Mucous Membr. moist/pink Cardiovascular: Regular Rate, Normal S1, Normal S2, No Murmurs Lungs: Clear to Auscultation, Normal Air Movement Abdomen: Soft, No Tenderness Neurological: Normal Speech Extremities: No Clubbing, No Cyanosis, No Edema Current Medications: Current Medications Sig/Dior Start time Last Medication Dose Route Stop Time Status Admin Acetaminophen 1,000 MG Q6 09/09 1200 AC 09/11 N/A 1 UNIT IV 0611 Acetaminophen 650 MG Q6P PRN 09/07 1630 AC 09/08 PO 2051 Adenosine 6 MG ONCE ONE 09/12 0845 DC IV 09/12 0846 Apixaban 2.5 MG BID 09/08 1000 AC 09/12 PO 0846 Aspirin 81 MG DAILY 09/10 1539 AC 09/12 PO 0846 Celecoxib 100 MG BID 09/09 2200 AC 09/12 PO 09/12 1001 0846 Docusate Sodium 100 MG BID 09/07 2200 AC 09/12 PO 0846 Guaifenesin 10 ML Q4P PRN 09/07 1615 AC 09/10 PO 2234 Haloperidol 2 MG TID PRN 09/09 1715 AC 09/10 PO 0918 Insulin Aspart 0 TIDAC 09/11 1700 AC 09/12 SC 0848 Lisinopril 10 MG DAILY 09/08 1000 AC 09/12 PO 0846 Methimazole 5 MG BID 09/11 2200 AC 09/12 PO 0907 Methimazole 5 MG DAILY 09/11 1000 DC PO Metoprolol Tartrate 25 MG BID 09/08 1000 AC 09/12 PO 0846 Nicotine 14 MG DAILY 09/08 1000 AC 09/12 TOP 0845 Ondansetron HCl 4 MG Q6P PRN 09/07 1630 AC IV Polyethylene Glycol 17 GM DAILY 09/09 1040 AC PO Ramelteon 8 MG AT BEDTIME 09/11 220 AC 09/11 PO 2334 Last 24 Hrs of Lab/Alexis Results Last 24 Hrs of Labs/Mics: Laboratory Tests 09/12/16 08: Phosphorus Cancelled, Magnesium Cancelled, Total Bilirubin Cancelled, Direct Bilirubin Cancelled, AST Cancelled, ALT Cancelled, Alkaline Phosphatase Cancelled, Total Protein Cancelled, Albumin Cancelled 09/12/16 0805: Anion Gap 6, Estimated GFR > 60, BUN/Creatinine Ratio 51.4 H, Phosphorus 3.5, Magnesium 2.1, Total Bilirubin 0.9, Direct Bilirubin 0.1, AST 22, ALT 29, Alkaline Phosphatase 57, Total Protein 4.9 L, Albumin 2.7 L 09/12/16 0630: CBC w Diff NO MAN DIFF REQ, RBC 2.63 L, MCV 89.2, MCH 29.7, RDW 13.6, MPV 8.9, Gran % 76.9 H, Lymphocytes % 10.1 L, Monocytes % 12.3 H, Eosinophils % 0.5, Basophils % 0.2, Absolute Granulocytes 12.9 H, Absolute Lymphocytes 1.7, Absolute Monocytes 2.1 H, Absolute Eosinophils 0.1, Absolute Basophils 0, PUBS MCHC 33.3 Assessment/Plan Assessment: 89-year-old lady with h/o 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 Problem list/plan: #Right hip intertrochanteric fracture s/p intramedullary nailing Underwent right hip ORIF on 09/07/16 POD #5.Orthopedic cleared patient for discharge to short-term rehabilitation, however patient heartrate need to be well controlled in order for her to be discharged. * continue Eliquis 2.5mg BID for DVT prophylaxis * [place] to be removed 14 days postop * Patient to follow up with Dr. Moran in the office #Post operative delirium Most likely multifactorial including old age, drug-induced, sleep deprivation, questionable infection (leukocytosis )and postoperative. Patient was found to have elevated free T4 with a low TSH but normal total T3. * avoid benzodiazepines, opioid analgesics, and meds with strong anticholinergic properties * Haloperidol 2 mg 3 times a day when necessary by mouth for agitation * We will use Celecoxib for pain * ramelteon dose to 8 mg qhs. * We will follow all possible measurement to avoid interrupting patient night sleep #Postoperative acute normocytic anemia Patient hemoglobin was 12.7 prior to the procedure. This morning hemoglobin is 7.8. It's anticipated to some blood post the procedure. but given the fact that patient is on Eliquis and she continued to drop hemoglobin daily * Repeat CBC daily * Guaiac all stool #Hyperthyroidism As part of delirium workup, TSH was found to be low and T4 was found to be high but T3 was found to be WNL which does not fits the picture of hyperthyroidism. TFT was repeated this AM and gave similar result. Given her uncontrolled heartrate and tremor, endocrinology recommended the following * Increase methimazole to 5 mg BID * Continue metoprolol 25 mg BID * Pending Thyroid stimulating immunoglobulin. * We'll check thyroid ultrasound #Supraventricular tachycardia/sinus tachycardia/short runs of V. tach Multiple sinus tachycardia, supraventricular tachycardia and short runs of V. tach beats were noticed on the telemetry. Patient continue to exhibit these arrhythmias even on metoprolol 25 mg. this morning patient had SVT that required adenosine(event notes) * We'll follow cardiology recommendation * Continue telemetry monitoring #Leukocytosis Afebrile, hemodynamically stable, denies any current active pain. No symptom or signs suggestive of infection. * We will follow CBC daily #CAD status post PCI/Hypertension ECHO shows EF 60%, mild TR, AR, Pulmonary regurgitation. * Continue aspirin * Continue metoprolol 25 mg twice a day * Continue lisinopril 10 mg * Continue statin Heart healthy diet DVT ppx Eliquis 2.5mg BID. Full code Problem List: 1. Hip fracture, right Pain Ratin Pain Location: Hip Pain Goal: Remain pain free Pain Plan: See A&P Tomorrow's Labs & Rationales: See A&P
--- NOTE | 2016-09-12 09:03 | NUR ---
NURSING LATE ENTRY:0630AM PT TACHYCARDIC ON THE MONITOR IN THE 150S-160S. PT ASYMPTOMATIC. BP 98/70. DR GOMEZ AND DR KELSEA SHEETS NOTIFIED AND AT THE BEDSIDE. EKG OBTAINED. CAROTID MASSAGE ATTEMPTED BY DR. KELSEA SHEETS WITH NO EFFECT. 0700:6MG IV ADENOSINE ADMINISTERED BY DR.UL SHEETS. BP 110/68. PT EXPERIENCED A BREIF EPISODE OF FLUSHING AND BRADYCARDIA. HR 110S ON THE MONITOR. BP 102/78. REPORT GIVEN TO DAY RN.
--- NOTE | 2016-09-12 09:26 | NUR ---
PHYSICAL THERAPY. Pt CURRENTLY TACHYCARDIC AT REST TO 150s-160s. DISCUSSED W/ RN TO DEFER PT AT THIS TIME. PT WILL F/U APPROPRIATE.
--- NOTE | 2016-09-12 10:47 | PN- Cardiology ---
Subjective Subjective: Feels "uncomfortable" this a.m. Rhythm has been sinus with frequent paroxysms of atrial fibrillation with rapid ventricular responses up to the 180 beat per minute range. Denies any chest discomfort, palpitations, shortness of breath, etc. Objective Vital Signs and I&Os Vital Signs Date Time Temp Pulse Resp B/P B/P Pulse O2 O2 Flow FiO2 Mean Ox Delivery Rate 09/12 1032 Nasal 3.0L Cannula 09/12 0846 98 122/60 09/12 0846 98 122/60 09/12 0823 98.5 98 20 122/60 97 Nasal 3.0L Cannula 09/12 0000 94 Nasal 3.0L Cannula 09/11 2335 98.2 78 18 108/52 96 Nasal Cannula 09/11 2333 96 108/70 09/11 1703 98.8 88 18 118/54 92 Nasal 3.0L Cannula 09/11 1224 Nasal 3.0L Cannula 09/11 1224 Nasal 3.0L Cannula 09/11 1221 Nasal 3.0L Cannula 09/11 1102 93 116/40 09/11 1102 93 116/40 Intake & Output 09/12 1600 09/12 0800 09/12 0000 09/11 1600 09/11 0800 09/11 0000 Intake Total 465 400 600 440 710 Output Total 175 2 Balance 290 400 600 440 708 Intake, IV 225 200 110 Intake, Oral 240 400 600 240 600 Number 1 1 Bowel Movements Output, Other 2 Output, Urine 175 Physical Exam: Well-developed, well-nourished elderly female in no acute distress with nasal oxygen in place. Vital signs: See above. Lungs: Clear to auscultation. Heart: S1, S2 Abdomen: Soft, nontender, positive bowel sounds. Extremities: No edema. Current Medications: Current Medications Sig/Dior Start time Last Medication Dose Route Stop Time Status Admin Acetaminophen 1,000 MG Q6 09/09 1200 AC 09/11 N/A 1 UNIT IV 0611 Acetaminophen 650 MG Q6P PRN 09/07 1630 AC 09/08 PO 2050 Adenosine 6 MG ONCE ONE 09/12 0845 DC IV 09/12 0846 Apixaban 2.5 MG BID 09/08 1000 AC 09/12 PO 0846 Aspirin 81 MG DAILY 09/10 1539 AC 09/12 PO 0846 Celecoxib 100 MG BID 09/09 2200 DC 09/12 PO 09/12 1001 0846 Docusate Sodium 100 MG BID 09/07 2200 AC 09/12 PO 0846 Guaifenesin 10 ML Q4P PRN 09/07 1615 AC 09/10 PO 2234 Haloperidol 2 MG TID PRN 09/09 1715 AC 09/10 PO 0918 Insulin Aspart 0 TIDAC 09/11 1700 AC 09/12 SC 0848 Lisinopril 10 MG DAILY 09/08 1000 AC 09/12 PO 0846 Methimazole 5 MG BID 09/11 2200 AC 09/12 PO 0907 Methimazole 5 MG DAILY 09/11 1000 DC PO Metoprolol Tartrate 25 MG BID 09/08 1000 AC 09/12 PO 0846 Nicotine 14 MG DAILY 09/08 1000 AC 09/12 TOP 0845 Ondansetron HCl 4 MG Q6P PRN 09/07 1630 AC IV Polyethylene Glycol 17 GM DAILY 09/09 1040 AC PO Ramelteon 8 MG AT BEDTIME 09/11 2200 AC 09/11 PO 2334 Results Last 48 Hrs of Labs/Mics: Laboratory Tests 09/12/16 0805: Phosphorus Cancelled, Magnesium Cancelled, Total Bilirubin Cancelled, Direct Bilirubin Cancelled, AST Cancelled, ALT Cancelled, Alkaline Phosphatase Cancelled, Total Protein Cancelled, Albumin Cancelled 09/12/16 0805: Anion Gap 6, Estimated GFR > 60, BUN/Creatinine Ratio 51.4 H, Phosphorus 3.5, Magnesium 2.1, Total Bilirubin 0.9, Direct Bilirubin 0.1, AST 22, ALT 29, Alkaline Phosphatase 57, Total Protein 4.9 L, Albumin 2.7 L 09/12/16 0630: CBC w Diff NO MAN DIFF REQ, RBC 2.63 L, MCV 89.2, MCH 29.7, RDW 13.6, MPV 8.9, Gran % 76.9 H, Lymphocytes % 10.1 L, Monocytes % 12.3 H, Eosinophils % 0.5, Basophils % 0.2, Absolute Granulocytes 12.9 H, Absolute Lymphocytes 1.7, Absolute Monocytes 2.1 H, Absolute Eosinophils 0.1, Absolute Basophils 0, PUBS MCHC 33.3 09/11/16 0615: Anion Gap 10, Estimated GFR > 60, BUN/Creatinine Ratio 37.5 H, TSH < 0.015 L, Free T4 3.03 H, Total T3 1.07, CBC w Diff NO MAN DIFF REQ, RBC 2.88 L, MCV 89.1, MCH 29.7, RDW 13.2, MPV 9.0, Gran % 78.6 H, Lymphocytes % 9.7 L, Monocytes % 11.6 H, Eosinophils % 0.1, Basophils % 0 L, Absolute Granulocytes 14.0 H, Absolute Lymphocytes 1.7, Absolute Monocytes 2.1 H, Absolute Eosinophils 0, Absolute Basophils 0, PUBS MCHC 33.4 09/11/16 0100: Sodium Cancelled, Potassium Cancelled, Chloride Cancelled, Carbon Dioxide Cancelled, Anion Gap Cancelled, BUN Cancelled, Creatinine Cancelled, BUN/ Creatinine Ratio Cancelled, CBC w Diff Cancelled, WBC Cancelled, RBC Cancelled, Hgb Cancelled, Hct Cancelled, MCV Cancelled, MCH Cancelled, RDW Cancelled, Plt Count Cancelled, MPV Cancelled, PUBS MCHC Cancelled 09/10/16 1400: Thyroid Stim Immunoglob Pending 09/10/16 1400: Magnesium 2.2, Total T3 1.00, Thyroglobulin Antibody < 15, Thyroid Peroxidase Ab < 28 09/10/16 1301: Thyroid Stim Immunoglob Cancelled Assessment/Plan Assessment/Plan Paroxysmal atrial fibrillation in a postoperative patient with abnormal thyroid function studies and ongoing evaluation and management for hyperthyroidism. At this juncture, would recommend increasing her beta nivia to help control the very rapid ventricular response rates she has been experiencing, while her endocrine evaluation is ongoing. Would increase her metoprolol from 25 mg twice daily to 50 mg twice daily and titrate this up further as needed. Adjunctive therapy with IV diltiazem would be reasonable if the ventricular response rates remain difficult to control. Also need to exclude the possibility that the atrial fibrillation is on the basis of a pulmonary which would actually alter management. Continue telemetry? Yes
--- NOTE | 2016-09-12 13:29 | CT SCAN REPORT ---
EXAMINATION: CT CHEST PE STUDY CLINICAL INFORMATION: Shortness of breath. New onset atrial fibrillation. COMPARISON: Chest x-ray dated 09/06/2016. TECHNIQUE: Prior to contrast administration, localization images were obtained. After the administration of 95 mL of intravenous Optiray 350, multidetector CT volume acquisition of the chest was performed. 3-D postprocessing was performed with multiplanar reconstructions and MIP images obtained at the acquisition workstation. DLP: 351.64 mGy-cm. FINDINGS: Pulmonary arteries: The bolus timing on this study was acceptable for visualization of the pulmonary arterial tree. There are a few scattered nonocclusive filling defects seen within distal subsegmental pulmonary arterial branches in the right upper lobe, right middle lobe, right lower lobe, left lower lobe, and lingula, consistent with pulmonary embolism. Lungs: There is prominent dependent atelectasis or subtle pneumonia seen in the lung bases bilaterally, left greater than right with associated slight thickening of the airways. Mild dependent atelectasis is also seen in the right upper lobe. There is a 0.5 cm nodular density seen in the subpleural periphery of the right upper lobe (series 2, image 135), adjacent to a larger area of what appears to be dependent atelectasis, most likely related to the same process rather than a true pulmonary nodule. In the periphery of the left lingula (series 2, image 175), a pleural-based 0.9 x 0.6 cm nodular opacity is seen, nonspecific. Evaluation overall is limited by motion artifact. There is biapical pleural-based parenchymal scarring also noted. No pleural effusion or pneumothorax. The central airways are patent and as discussed above, diffuse thickening of the airways in the left lower lobe is noted. Aorta and heart: The heart is mildly enlarged with hypertrophy of the left ventricle and dilatation of the right atrium and right ventricle seen. The interventricular septum remains midline in position with no significant leftward bowing noted. No significant reflux of contrast into the IVC is seen. Aortic valvular calcifications are seen. Ectasia of the ascending aorta is noted with maximal AP diameter of 3.8 cm at the level of the right main pulmonary artery. Mild atherosclerotic calcifications of the aorta and great vessels are noted. No periaortic collection. There is no pericardial effusion. Lymphatic structures: There is no lymphadenopathy. Thyroid gland: The thyroid gland is enlarged and heterogeneous with substernal extension seen, most consistent with a goiter. Upper abdomen: Nodular enlargement of the left adrenal gland is seen, consistent with nodular hypertrophy. Pancreas to the extent visualized appears atrophic. Limited evaluation of the remaining upper abdominal viscera demonstrates no focal abnormality. Bones: Diffuse osteopenia with anterior marginal spur formation and ligamentous ossification is seen with partial fusion anteriorly across the disc spaces. Findings raise the suspicion of ankylosing spondylitis. No suspicious focal findings seen. IMPRESSION: 1. Above findings are consistent with scattered small pulmonary emboli in all lobes of the lungs bilaterally. No imaging evidence of elevated right heart pressures is noted. Clinical correlation requested. 2. Dense area of atelectasis or consolidation in the dependent portion of the left lower lobe more than the right lower lobe. 3. Small nodular density in the right upper lobe is seen, most likely part of a larger parenchymal process related to atelectasis. Recommend follow-up CT scan in 6 months for reassessment. 4. Aortic valvular calcifications and left ventricular hypertrophy is seen. Consider further assessment with echocardiogram. 5. Enlarged heterogeneous thyroid gland, consistent with a goiter. 6. Atrophic pancreas. 7. Nodular hypertrophy of left adrenal gland. This critical result was discussed with Dr. Ofe Ulloa 09/12/2016, 1:08 PM and it was ascertained that the content and urgency of this report was understood at the time of direct communication.
--- NOTE | 2016-09-12 14:34 | ULTRASOUND REPORT ---
EXAMINATION: US THYROID CLINICAL INFORMATION: Blood work suggestive of hyperthyroidism. Patient heart rate is not under control. Treatment has a side effect an accurate diagnosis is required. Presumptive diagnosis thyroid nodules or masses. COMPARISON: Nuclear medicine thyroid scan dated 08/31/2008. TECHNIQUE: Linear transducer hernández-scale and color Doppler examination with attention to the region of the thyroid. FINDINGS: SIZE: Measurements of the thyroid lobes and nodules are given in sagittal, anteroposterior and transverse dimensions respectively. Right thyroid lobe: 6.5 x 2.9 x 2.1 cm, volume 20.7 mL. Parenchyma: The gland echotexture is homogeneous. Thyroid vascularity is normal. Left thyroid lobe: 6.1 x 3.1 x 2.9 cm, volume 28.7 mL. Parenchyma: The gland echotexture is homogeneous. Thyroid vascularity is normal. Isthmus: 0.5 cm in maximum AP dimension. RIGHT THYROID LOBE: No nodules. ISTHMUS: No nodules. LEFT THYROID LOBE: No nodules. NODES: No lymphadenopathy is seen in the tissue surrounding the thyroid gland. IMPRESSION: Diffusely mildly enlarged thyroid gland is seen without discrete thyroid nodule or mass.
--- NOTE | 2016-09-12 14:43 | Event Note ---
Event Note Event Note: Patient was found to have pulmonary embolism on CAT scan. Patient will be started on 60 mg Lovenox and warfarin 2.5 mg.
--- NOTE | 2016-09-12 15:08 | Discharge Summary ---
Visit Information Visit Dates Admission Date: 09/06/16 Discharge Date: 09/15/16 Hospital Course Course Attending Physician: MEMO ZAMUDIO MD Primary Care Physician: CAROL HINTON PhD,RENETTA Savage Hospital Course: 89-year-old lady with h/o 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 Vitals on admission blood pressure 155/65, pulse 69, afebrile saturating 94% on room air. Labs pertinent for leukocytosis with a white blood cell count of 11,100, and H&H of 12.7/38.4, platelet count of 216,000. Serum chemistries revealed a sodium of 140, potassium of 4.7, BUN 40, creatinine 0.8 with serum glucose of 162. LFTs unremarkable with an AST/ALT of 16/24 with an alkaline phosphatase of 62. Coags revealed an INR of 1.05. X ray of chest: Prominent bilateral interstitial markings without a focal airspace consolidation. No significant interval change since the prior examination. EKG showed: Dermal sinus rhythm with a heart rate of 76, normal axis, Q waves in leads waves I and aVL, no ST-T changes normal ME interval of 149 and a QTC of 446. Problem list/plan: Right hip intertrochanteric fracture s/p intramedullary nailing Her RCRI of 0.9% - history of ID, cleared by cardiology for surgery. Underwent right hip ORIF on 09/07/16, tolerated procedure well. She was started on eliquis for DVT prophylaxis. On POD #2 - postoperative course complicated by delirium. She'll will get cam removed on postop day 14, 09/21/2016. Patient was instructed to follow up with Dr. Recinos in his office. Hyperactive delirium Likely postoperative vs sleep deprivation vs infectious. White count is increasing everyday -- 17 today. She remained Afebrile, couldnt sleep through out the night. She was very agitated although she received 2 doses of zyprexa, haldol remained very confused. She didnt take any of her pills since morning. She became tachycardic, hypertensive requiring tele transfer in the afternoon. Psych was consulted. Patient was given ramelteon 16 mg daily at bedtime . She was also provided with Haldol 2 mg 3 times a day as needed. We avoid benzos, opiate analgesics and medications with strong anticholinergic properties. Following nonpharmacological interventions were recommended -Avoid nursing and medical procedures during sleep hours whenever possible - Cluster at night interventions that must be completed as much as possible to minimize sleep disruption - Decrease noise patient area during sleeping hours - Reduce lighting at night - Ensure patient has any sensory aids close by that she regularly uses Acute Blood loss anemia: H&H at admission is 12.7/38. However postoperatively trended with H&H 12.7/38 --> 10.7/32.1 --> 9.1/27.5 --> 8.8/26. Goal Hb >8 in the setting of cardiac disease. No evidence of bleed so far. Maintaining H&H at 7.8 /23.5 CAD status post PCI: * Maintained on [employer] TECHNICIAN metoprolol 25mg BID, lisinopril 10mg, Statin. Aspirin was held on admission in anticipation of surgery. * ECHO shows EF 60%, mild TR, AR, Pulmonary regurgitation. Hypertension She was on Metoprolol tartarate 25mg BID and lisinopril 10mg daily, continued for now. Multiple bilateral small PEs/Supraventricular tachycardia/sinus tachycardia/ short runs of V. tach Patient went into SVTs on September 12 and also she was going in and out of atrial fibrillation at multiple occasions. We did a CTA to rule out pulmonary embolism and was found to have multiple small PEs. Patient was started on full anticoagulation dose with Lovenox and Coumadin to achieve therapeutic INR of 2-3 . We'll send patient to rehabilitation on Coumadin 3 mg dailyand one more day of lovenox and patient will be instructed to check INR every week to keep between 2-3. We stopped her NSAIDs #Hyperthyroidism As part of delirium workup, TSH was found to be low and T4 was found to be high but T3 was found to be WNL which does not fits the picture of hyperthyroidism. TFT was repeated this AM and gave similar result. Given her uncontrolled heartrate and tremor, endocrinology recommended the following * Increase methimazole to 5 mg BID * Continue metoprolol 25 mg BID * Thyroid stimulating immunoglobulin.<89 normal * Did a thyroid ultrasound that showed diffusely mildly enlarged thyroid gland without discrete thyroid nodule or mass * She needs to check LFTs and CBC every week as she is on methimazole. * She was instructed to follow-up with endocrinology . She needs to repeat her thyroid function test on Thursday and has to follow-up with Dr. Crooks as outpatient. Her methimazole might be lower down to once a day #UTI On September 14 urinalysis showed positive urine nitrates, leukocyte Estrace and packed WBC. Patient was started on ceftriaxone and improved significantly. We will send patient on Keflex for total of 7 days. DVT prophylaxis - pharmacological Allergies: Coded Allergies: NO KNOWN ALLERGIES (02/27/12) Significant Procedures: SERVICE DATE: 09/12/16- EXAM TYPE: US - US-SOFT TISSUES OF HEAD & NECK EXAMINATION: US THYROID CLINICAL INFORMATION: Blood work suggestive of hyperthyroidism. Patient heart rate is not under control. Treatment has a side effect an accurate diagnosis is required. Presumptive diagnosis thyroid nodules or masses. COMPARISON: Nuclear medicine thyroid scan dated 08/31/2008. TECHNIQUE: Linear transducer hernández-scale and color Doppler examination with attention to the region of the thyroid. FINDINGS: SIZE: Measurements of the thyroid lobes and nodules are given in sagittal, anteroposterior and transverse dimensions respectively. Right thyroid lobe: 6.5 x 2.9 x 2.1 cm, volume 20.7 mL. Parenchyma: The gland echotexture is homogeneous. Thyroid vascularity is normal. Left thyroid lobe: 6.1 x 3.1 x 2.9 cm, volume 28.7 mL. Parenchyma: The gland echotexture is homogeneous. Thyroid vascularity is normal. Isthmus: 0.5 cm in maximum AP dimension. RIGHT THYROID LOBE: No nodules. ISTHMUS: No nodules. LEFT THYROID LOBE: No nodules. NODES: No lymphadenopathy is seen in the tissue surrounding the thyroid gland. IMPRESSION: Diffusely mildly enlarged thyroid gland is seen without discrete thyroid nodule or mass. Operative/Inv Procedure Report Surgery Date: 09/07/16 Name of Procedure: Intramedullary nail right hip Pre-Operative Diagnosis: Right hip intertrochanteric fracture Post-Operative Diagnosis: Same Estimated Blood Loss: 50ml to 100ml Surgeon/Charhouse Worker: DILLAN Anesthesia: laryngeal mask airway IV Fluids: See anesthesia record Implants: [place] gamma nail short 95 mm lag screw Specimens: None Complications: None Condition: Stable Operative Indication: Patient's an 89-year-old female status post mechanical fall with a right intertrochanteric hip fracture. She is cleared by the medical and cardiology service and was taken the operating room for fixation. The risks and benefits of the procedure discussed the patient and her son in detail. Operative/Procedure Note Note: Once informed consent was obtained and the correct limb was identified patient brought to operative room placed on table. This was on the fracture table. Patient's left leg was placed in a well-leg cancino and the right lower extremity was placed in traction. C-arm fluoroscopy was brought in and reduction was done. The fracture was reduced in the AP and lateral planes and the right lower 70 is prepped and draped usual sterile fashion. To begin the procedure small incision made proximal to the tip of the greater trochanter. Position of the guidewire placement was confirmed on AP and lateral planes and the gutters advanced into the proximal femur. Guidewires and advanced across the fracture site. Proximal reamer was then used to ream out the proximal fragment for placement of the short gamma nail. Over the guidewire the short gamma nail was placed and confirmed to be in the femur and the AP and lateral planes. Positioning of the nail was then confirmed in AP plane for placement of the lag screw. Using the drill guide a guidewire was placed across the femoral neck into the femoral head. Position of the guidewire was confirmed in AP and lateral planes and lag screw measurement length was 95 mm. The triple reamer was set to 95 and the lateral cortex and femoral neck were reamed out. A 95 mm lag screws placed through the nail into the femoral head. C-arm fluoroscopy confirmed excellent position in the AP and lateral planes. Using the jig a distal locking screws placed through the distal femur without complication. Final images confirmed excellent nail placement with excellent fracture reduction and hardware placement. The jig was disassembled and the incisions were closed with 0 Vicryl and 2-0 Vicryl interrupted sutures. Cam was used to close the skin and a sterile dressing was applied. The patient was awakened taken recovery in stable condition. Pertinent Lab Results: SERVICE DATE: 09/12/16- EXAM TYPE: CAT - CTA CHEST-PULMONARY EMBOLISM EXAMINATION: CT CHEST PE STUDY CLINICAL INFORMATION: Shortness of breath. New onset atrial fibrillation. COMPARISON: Chest x-ray dated 09/06/2016. TECHNIQUE: Prior to contrast administration, localization images were obtained. After the administration of 95 mL of intravenous Optiray 350, multidetector CT volume acquisition of the chest was performed. 3-D postprocessing was performed with multiplanar reconstructions and MIP images obtained at the acquisition workstation. DLP: 351.64 mGy-cm. FINDINGS: Pulmonary arteries: The bolus timing on this study was acceptable for visualization of the pulmonary arterial tree. There are a few scattered nonocclusive filling defects seen within distal subsegmental pulmonary arterial branches in the right upper lobe, right middle lobe, right lower lobe, left lower lobe, and lingula, consistent with pulmonary embolism. Lungs: There is prominent dependent atelectasis or subtle pneumonia seen in the lung bases bilaterally, left greater than right with associated slight thickening of the airways. Mild dependent atelectasis is also seen in the right upper lobe. There is a 0.5 cm nodular density seen in the subpleural periphery of the right upper lobe (series 2, image 135), adjacent to a larger area of what appears to be dependent atelectasis, most likely related to the same process rather than a true pulmonary nodule. In the periphery of the left lingula (series 2, image 175), a pleural-based 0.9 x 0.6 cm nodular opacity is seen, nonspecific. Evaluation overall is limited by motion artifact. There is biapical pleural-based parenchymal scarring also noted. No pleural effusion or pneumothorax. The central airways are patent and as discussed above, diffuse thickening of the airways in the left lower lobe is noted. Aorta and heart: The heart is mildly enlarged with hypertrophy of the left ventricle and dilatation of the right atrium and right ventricle seen. The interventricular septum remains midline in position with no significant leftward bowing noted. No significant reflux of contrast into the IVC is seen. Aortic valvular calcifications are seen. Ectasia of the ascending aorta is noted with maximal AP diameter of 3.8 cm at the level of the right main pulmonary artery. Mild atherosclerotic calcifications of the aorta and great vessels are noted. No periaortic collection. There is no pericardial effusion. Lymphatic structures: There is no lymphadenopathy. Thyroid gland: The thyroid gland is enlarged and heterogeneous with substernal extension seen, most consistent with a goiter. Upper abdomen: Nodular enlargement of the left adrenal gland is seen, consistent with nodular hypertrophy. Pancreas to the extent visualized appears atrophic. Limited evaluation of the remaining upper abdominal viscera demonstrates no focal abnormality. Bones: Diffuse osteopenia with anterior marginal spur formation and ligamentous ossification is seen with partial fusion anteriorly across the disc spaces. Findings raise the suspicion of ankylosing spondylitis. No suspicious focal findings seen. IMPRESSION: 1. Above findings are consistent with scattered small pulmonary emboli in all lobes of the lungs bilaterally. No imaging evidence of elevated right heart pressures is noted. Clinical correlation requested. 2. Dense area of atelectasis or consolidation in the dependent portion of the left lower lobe more than the right lower lobe. 3. Small nodular density in the right upper lobe is seen, most likely part of a larger parenchymal process related to atelectasis. Recommend follow-up CT scan in 6 months for reassessment. 4. Aortic valvular calcifications and left ventricular hypertrophy is seen. Consider further assessment with echocardiogram. 5. Enlarged heterogeneous thyroid gland, consistent with a goiter. 6. Atrophic pancreas. 7. Nodular hypertrophy of left adrenal gland. This critical result was discussed with Dr. Ofe Ulloa 09/12/2016, 1:08 PM and it was ascertained that the content and urgency of this report was understood at the time of direct communication. Disposition Summary Disposition Principal Diagnosis: Right hip intertrochanteric fracture s/p intramedullary nailing Additional Diagnosis: Post operative delirium Hyperthyroidism PEs Discharge Disposition: SNF Discharge Instructions General Discharge Information Code Status: Full Code Patient's Diet: Heart healthy diet Patient's Activity: As tolerated with assistance Follow-Up Instructions/Appts: Follow-up with your primary care physician in mental week of discharge Please follow-up with orthopedic surgery for staple removal on 09/21/2016 Medications at Discharge Discharge Medications: Stop taking the following medications: Naproxen Sodium (Aleve) 220 MG TABLET Continue taking these medications: Lisinopril (Lisinopril) 10 MG TABLET 1 Tablet ORAL DAILY Qty = 30 Comments: Last Taken: 09/15/16 Time: 9 am Metoprolol Tartrate (Metoprolol Tartrate) 25 MG TABLET 1 Tablet ORAL TWICE DAILY Qty = 60 Comments: Last Taken: 09/15/16 Time: 9 am Aspirin (Aspirin*) 325 MG TABLET 1 Tablet ORAL DAILY Comments: Last Taken: 09/15/16 Time: 9 am Start taking the following new medications: Methimazole (Tapazole) 5 MG TABLET 5 Milligram ORAL TWICE DAILY Qty = 90 No Refills Comments: Last Taken: 09/15/16 Time: 9 am Haloperidol (Haloperidol) 2 MG TABLET 2 Milligram ORAL THREE TIMES DAILY as needed for AGITATION Days = 30 No Refills Comments: NOT GIVEN IN HOSPITAL Ramelteon (Rozerem) 8 MG TABLET 8 Milligram ORAL AT BEDTIME Days = 30 No Refills Comments: Last Taken: 09/14/16 Time: 9 pm Enoxaparin Sodium (Lovenox) 60 MG/0.6 ML SYRINGE 60 Milligram Inject into fatty tissue EVERY 12 HOURS Qty = 2 No Refills Comments: Last Taken: 09/15/16 Time: 9 am Warfarin Sodium (Coumadin) 3 MG TABLET 1 Tablet ORAL DAILY Days = 30 No Refills Comments: Last Taken: 09/14/16 Time: 5 pm Cephalexin (Keflex) 500 MG CAPSULE 1 Capsule ORAL TWICE DAILY Days = 5 No Refills Comments: Last Taken: 09/15/16 Time: 9 am IV ABX GIVEN IN HOSPITAL Copies To: CAROL HINTON PhD,RENETTA Savage Attending Review Statement Documenting Attending: MEMO ZAMUDIO MD
[2016-09-12 16:02] VITALS: BP 96/50
[2016-09-13 01:01] VITALS: BP 142/68
--- NOTE | 2016-09-13 07:34 | PN- Housestaff ---
Subjective Follow-up For: 1.Right hip fracture 2.s/p repair 6 days ago 3.Altered mentation - acute hyperactive delirium 4. Multiple bilateral small PEs Complaints: no complaints Subjective: Was seen and examined this morning. She was lying comfortably in bed without any complaints. She remained stable hemodynamically. Temperature 98.4, pulse 71, respiratory rate 18, blood pressure 122/68 and she is saturating 95% on room air. Prominent hand tremors were still noted. Review of Systems Constitutional: Denies: chills, diaphoresis. Cardiovascular: Denies: chest pain, edema. Respiratory: Denies: cough, hemoptysis. Gastrointestinal: Denies: abdominal pain, bloating. Genitourinary: Denies: dysuria, frequency. Musculoskeletal: Reports: see HPI. Objective Last 24 Hrs of Vital Signs/I&O Vital Signs Date Time Temp Pulse Resp B/P B/P Pulse O2 O2 Flow FiO2 Mean Ox Delivery Rate 09/13 0101 98.4 71 18 142/68 95 Room Air 09/13 0000 Nasal 3.0L Cannula 09/12 2120 77 148/60 09/12 1602 99.1 71 18 96/50 95 Room Air / 1600 Nasal 3.0L Cannula 09/12 1032 Nasal 3.0L Cannula 09/12 0846 98 122/60 / 0846 98 122/60 / 0823 98.5 98 20 122/60 97 Nasal 3.0L Cannula Intake & Output 09/13 1600 /03 0800 09/13 0000 Intake Total 440 240 Output Total 300 Balance 140 240 Intake, IV 200 Intake, Oral 240 240 Output, Urine 300 Physical Exam General Appearance: Alert, Oriented X3, Cooperative, No Acute Distress Cardiovascular: Regular Rate, Normal S1, Normal S2 Lungs: Normal Air Movement Abdomen: Soft, No Tenderness Neurological: Normal Speech, Normal Tone Current Medications: Current Medications Sig/Dior Start time Last Medication Dose Route Stop Time Status Admin Acetaminophen 1,000 MG Q6 09/09 1200 AC 09/13 N/A 1 UNIT IV 0551 Acetaminophen 650 MG Q6P PRN 09/07 1630 AC 09/12 PO 1725 Adenosine 6 MG ONCE ONE 09/12 0845 DC IV 09/12 0846 Apixaban 2.5 MG BID 09/08 1000 DC 09/12 PO 0846 Aspirin 81 MG DAILY 09/10 1539 AC 09/12 PO 0846 Celecoxib 100 MG BID 09/09 2200 DC 09/12 PO 09/12 1001 0846 Diclofenac Sodium 1 REY 4 TIMES/DAY PRN 09/12 2130 AC 09/12 TOP 2244 Docusate Sodium 100 MG BID 09/07 2200 AC 09/12 PO 2120 Enoxaparin Sodium 60 MG Q12 09/12 1400 AC 09/12 SC 2120 Guaifenesin 10 ML Q4P PRN 09/07 1615 AC 09/10 PO 2234 Haloperidol 2 MG TID PRN 09/09 1715 09/10 PO 0918 Heparin Sodium/ 25,000 UNIT Q24H 09/12 1400 CAN Dextrose IV Dextrose/Water 500 ML Insulin Aspart 0 TIDAC 09/11 1700 AC 09/12 SC 1722 Ketorolac 15 MG ONCE ONE 09/12 2129 DC 09/12 Tromethamine IV 09/12 2131 2244 Lisinopril 10 MG DAILY 09/08 1000 AC 09/12 PO 0846 Methimazole 5 MG BID 09/11 2200 AC 09/12 PO 2120 Metoprolol Tartrate 50 MG BID 09/12 2200 09/12 PO 2120 Metoprolol Tartrate 25 MG BID 09/08 1000 DC 09/12 PO 0846 Nicotine 14 MG DAILY 09/08 1000 09/12 TOP 0845 Ondansetron HCl 4 MG Q6P PRN 09/07 1630 AC IV Polyethylene Glycol 17 GM DAILY 09/09 1040 AC PO Ramelteon 8 MG AT BEDTIME 09/11 2200 AC 09/12 PO 2120 Warfarin Sodium 2.5 MG COUMADIN 1700 ONE 09/12 1700 DC 09/12 PO 09/12 1701 1651 Last 24 Hrs of Lab/Alexis Results Last 24 Hrs of Labs/Mics: Laboratory Tests 09/13/16 0640: Sodium Pending, Potassium Pending, Chloride Pending, Carbon Dioxide Pending, Anion Gap Pending, BUN Pending, Creatinine Pending, BUN/Creatinine Ratio Pending , PT Pending, INR Pending, CBC w Diff Pending, WBC Pending, RBC Pending, Hgb Pending, Hct Pending, MCV Pending, MCH Pending, RDW Pending, Plt Count Pending, MPV Pending, PUBS MCHC Pending 09/12/16 0805: Phosphorus Cancelled, Magnesium Cancelled, Total Bilirubin Cancelled, Direct Bilirubin Cancelled, AST Cancelled, ALT Cancelled, Alkaline Phosphatase Cancelled, Total Protein Cancelled, Albumin Cancelled 09/12/16 0805: Anion Gap 6, Estimated GFR > 60, BUN/Creatinine Ratio 51.4 H, Phosphorus 3.5, Magnesium 2.1, Total Bilirubin 0.9, Direct Bilirubin 0.1, AST 22, ALT 29, Alkaline Phosphatase 57, Total Protein 4.9 L, Albumin 2.7 L Assessment/Plan Assessment: 89-year-old lady with h/o 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 Problem list/plan: #Right hip intertrochanteric fracture s/p intramedullary nailing Underwent right hip ORIF on 09/07/16 POD #5.Orthopedic cleared patient for discharge to short-term rehabilitation, however patient heartrate need to be well controlled in order for her to be discharged. * Since patient was diagnosed with multiple pulmonary emboli, Eliquis was changed to Lovenox and Coumadin * Cam to be removed 14 days postop * Patient to follow up with Dr. Moran in the office #Post operative delirium Most likely multifactorial including old age, drug-induced, sleep deprivation, questionable infection (leukocytosis )and postoperative. Patient was found to have elevated free T4 with a low TSH but normal total T3. * avoid benzodiazepines, opioid analgesics, and meds with strong anticholinergic properties * Haloperidol 2 mg 3 times a day when necessary by mouth for agitation * We will use Celecoxib for pain * ramelteon dose to 8 mg qhs. * We will follow all possible measurement to avoid interrupting patient night sleep #Postoperative acute normocytic anemia Patient hemoglobin was 12.7 prior to the procedure. This morning hemoglobin is 7.8. It's anticipated to some blood post the procedure. but given the fact that patient is on Lovenox and now on Coumadin as well and she continued to drop hemoglobin daily * Repeat CBC daily * Guaiac all stool #Hyperthyroidism As part of delirium workup, TSH was found to be low and T4 was found to be high but T3 was found to be WNL which does not fits the picture of hyperthyroidism. TFT was repeated this AM and gave similar result. Given her uncontrolled heartrate and tremor, endocrinology recommended the following * Increase methimazole to 5 mg BID * Continue metoprolol 25 mg BID * Pending Thyroid stimulating immunoglobulin. * Thyroid ultrasound was negative for any thyroid nodule or mass #Supraventricular tachycardia/sinus tachycardia/short runs of V. tach Multiple sinus tachycardia, supraventricular tachycardia and short runs of V. tach beats were noticed on the telemetry. Patient continue to exhibit these arrhythmias even on metoprolol 25 mg. this morning patient had SVT that required adenosine(event notes) * We'll follow cardiology recommendation * Continue telemetry monitoring #Leukocytosis Afebrile, hemodynamically stable, denies any current active pain. No symptom or signs suggestive of infection. * We will follow CBC daily #CAD status post PCI/Hypertension ECHO shows EF 60%, mild TR, AR, Pulmonary regurgitation. * Continue aspirin * Continue metoprolol 25 mg twice a day * Continue lisinopril 10 mg * Continue statin Heart healthy diet DVT ppx Eliquis 2.5mg BID. Full code Problem List: 1. Hip fracture, right 2. Intertrochanteric fracture of right hip Pain Ratin Pain Location: Back pain Pain Goal: Remain pain free Pain Plan: Tylenol Tomorrow's Labs & Rationales: INR, CBC and basic electrolyte panel
[2016-09-13 08:24] LABS: ABSOLUTE BASOPHIL COUNT 0 /CUMM (0.0-0.2); ABSOLUTE EOSINOPHIL COUNT 0 /CUMM (0.0-0.7); ABSOLUTE GRANULOCYTE CT 12.2 /CUMM (1.4-6.5); ABSOLUTE LYMPH COUNT 1.3 /CUMM (1.2-3.4); ABSOLUTE MONOCYTE COUNT 1.4 /CUMM (0.10-0.60); BASOPHIL % 0 % (0.0-2.0); EOSINOPHIL % 0.2 % (0-5); GRANULOCYTE % 81.8 % (42.2-75.2); MEAN CORPUSCULAR HGB 29.6 PG (27.0-31.0); MEAN CORPUSCULAR HGB CONC 33.5 G/DL (33.0-37.0); MEAN CORPUSCULAR VOLUME 88.4 FL (81.0-99.0); PLATELET COUNT 290 /CUMM (130-400); RBC DISTRIBUTION WIDTH 13.7 % (11.5-14.5); RED BLOOD CELL CT 2.72 /CUMM (4.20-5.40); WHITE BLOOD CELL COUNT 14.9 /CUMM (4.8-10.8)
[2016-09-13 08:44] VITALS: BP 122/58
--- NOTE | 2016-09-13 12:45 | PN- Cardiology ---
Subjective Subjective: Sitting in her chair. Resting comfortably on nasal cannula oxygen. Denies dyspnea at rest. Objective Vital Signs and I&Os Vital Signs Date Time Temp Pulse Resp B/P B/P Pulse O2 O2 Flow FiO2 Mean Ox Delivery Rate 09/13 0844 97.6 72 20 122/58 93 Nasal 3.0L Cannula 09/13 0800 94 Nasal 2.0L Cannula 09/13 0101 98.4 71 18 142/68 95 Room Air 09/13 0000 Nasal 3.0L Cannula 09/12 2120 77 148/60 09/12 1602 99.1 71 18 96/50 95 Room Air 09/12 1600 Nasal 3.0L Cannula Intake & Output 09/13 1600 09/13 0800 09/13 0000 09/12 1600 09/12 0800 09/12 0000 Intake Total 440 240 480 465 400 Output Total 300 175 Balance 140 240 480 290 400 Intake, IV 200 225 Intake, Oral 240 240 480 240 400 Number 1 1 Bowel Movements Output, Urine 300 175 Physical Exam: General: no apparent distress. Alert. On nasal cannula Eyes: No obvious scleral icterus. HEENT: No jugular venous distention or abnormal jugular venous pulsations. Cardiovascular: Normal intensity S1/S2. Regular. Respiratory: Decreased air entry at the bases Abdomen: Soft, nontender with no guarding or rebound tenderness. Musculoskeletal: No clubbing or cyanosis noted, no edema Skin: Warm Current Medications: Current Medications Sig/Dior Start time Last Medication Dose Route Stop Time Status Admin Acetaminophen 1,000 MG .STK-MED ONE 09/13 0245 DC IV 09/13 0246 Acetaminophen 1,000 MG .STK-MED ONE 09/13 0037 DC IV 09/13 0038 Acetaminophen 1,000 MG Q6 09/09 1200 AC 09/13 N/A 1 UNIT IV 0551 Acetaminophen 650 MG Q6P PRN 09/07 1630 AC 09/12 PO 1725 Apixaban 2.5 MG BID 09/08 1000 DC 09/12 PO 0846 Aspirin 81 MG DAILY 09/10 1539 AC 09/13 PO 0852 Diclofenac Sodium 1 REY 4 TIMES/DAY PRN 09/12 2130 AC 09/12 TOP 2244 Docusate Sodium 100 MG BID 09/07 2200 AC 09/12 PO 2120 Enoxaparin Sodium 60 MG Q12 09/12 1400 AC 09/13 SC 0852 Guaifenesin 10 ML Q4P PRN 09/07 1615 AC 09/13 PO 0858 Haloperidol 2 MG TID PRN 09/09 1715 AC 09/10 PO 0918 Heparin Sodium/ 25,000 UNIT Q24H 09/12 1400 CAN Dextrose IV Dextrose/Water 500 ML Insulin Aspart 0 TIDAC 09/11 1700 AC 09/13 SC 0833 Ketorolac 15 MG ONCE ONE 09/12 2130 DC 09/12 Tromethamine IV 09/12 2131 2244 Lisinopril 10 MG DAILY 09/08 1000 AC 09/13 PO 0851 Methimazole 5 MG BID 09/11 2200 AC 09/13 PO 0851 Metoprolol Tartrate 50 MG BID 09/12 2200 AC 09/13 PO 0851 Nicotine 14 MG DAILY 09/08 1000 AC 09/13 TOP 0851 Ondansetron HCl 4 MG Q6P PRN 09/07 1630 AC IV Polyethylene Glycol 17 GM DAILY 09/09 1040 AC PO Ramelteon 8 MG AT BEDTIME 09/11 2200 AC 09/12 PO 2120 Warfarin Sodium 2.5 MG COUMADIN 1700 ONE 09/13 1700 AC PO 09/13 1701 Warfarin Sodium 2.5 MG COUMADIN 1700 ONE 09/12 1700 DC 09/12 PO 09/12 1701 1651 Results Last 48 Hrs of Labs/Mics: Laboratory Tests 09/13/16 0640: Anion Gap 10, Estimated GFR 59 L, BUN/Creatinine Ratio 55.6 H, PT 14.0 H, INR 1.34 H, CBC w Diff NO MAN DIFF REQ, RBC 2.72 L, MCV 88.4, MCH 29.6, RDW 13.7, MPV 9.0, Gran % 81.8 H, Lymphocytes % 8.6 L, Monocytes % 9.4 H, Eosinophils % 0.2, Basophils % 0 L, Absolute Granulocytes 12.2 H, Absolute Lymphocytes 1.3, Absolute Monocytes 1.4 H, Absolute Eosinophils 0, Absolute Basophils 0, PUBS MCHC 33.5 09/12/16 0805: Phosphorus Cancelled, Magnesium Cancelled, Total Bilirubin Cancelled, Direct Bilirubin Cancelled, AST Cancelled, ALT Cancelled, Alkaline Phosphatase Cancelled, Total Protein Cancelled, Albumin Cancelled 09/12/16 0805: Anion Gap 6, Estimated GFR > 60, BUN/Creatinine Ratio 51.4 H, Phosphorus 3.5, Magnesium 2.1, Total Bilirubin 0.9, Direct Bilirubin 0.1, AST 22, ALT 29, Alkaline Phosphatase 57, Total Protein 4.9 L, Albumin 2.7 L 09/12/16 0630: CBC w Diff NO MAN DIFF REQ, RBC 2.63 L, MCV 89.2, MCH 29.7, RDW 13.6, MPV 8.9, Gran % 76.9 H, Lymphocytes % 10.1 L, Monocytes % 12.3 H, Eosinophils % 0.5, Basophils % 0.2, Absolute Granulocytes 12.9 H, Absolute Lymphocytes 1.7, Absolute Monocytes 2.1 H, Absolute Eosinophils 0.1, Absolute Basophils 0, PUBS MCHC 33.3 Recent Imaging Studies: Telemetry tracings were personally reviewed and shows sinus rhythm with 5 beat wide complex burst Assessment/Plan Assessment/Plan 1. Hip fracture status post repair 2. Paroxysmal atrial fibrillation 3. Pulmonary embolism 4. History of coronary artery disease 5. Postoperative delirium 6. Anemia 7. Hyperthyroidism The patient is currently in sinus rhythm and remains hemodynamically stable. Is being anticoagulated for pulmonary embolism, currently receiving Lovenox and it appears she has been started on Coumadin. Continue beta nivia therapy. Augie Armstrong MD [facility] . Continue telemetry? Yes
--- NOTE | 2016-09-13 13:43 | PN- Endocrinology ---
Assessment/Plan Assessment: Patient was diagnosed with hyperthyroidism with TSH of less than 0.015 and free T4 clearly elevated at 3.03. Thyroid u.s showed an enlarged thyroid gland w/o discrete nodules. Patient was put on Methimazole 5 mg twice a day. She had an episode of SVT with HR in the 130s. with regards to DM, she was put on Novolog coverage before meals and her FSGs were 111, 181 and 301. Plan: 1. hyperthyroidism: -- continue Methimazole 5 mg twice a day for now. --repeat free T4 tomorrow am; 2. DM: --adjust Novolog coverage before meals; FSG < 150, no coverage 150-200, 2 units 201-250, 3 units 251-300, 4 units 301-350, 5 units 351-400, 6 units > 400, 7 units --repeat HbA1c will follow. Subjective Subjective: She feels okay at this point. Objective Last 24 Hrs of Vital Signs/I&O Vital Signs Date Time Temp Pulse Resp B/P B/P Pulse O2 O2 Flow FiO2 Mean Ox Delivery Rate 09/13 0844 97.6 72 20 122/58 93 Nasal 3.0L Cannula 09/13 0800 94 Nasal 2.0L Cannula 09/13 0101 98.4 71 18 142/68 95 Room Air 09/13 0000 Nasal 3.0L Cannula 09/12 2120 77 148/60 06/ 1602 99.1 71 18 96/50 95 Room Air 09/12 1600 Nasal 3.0L Cannula Intake & Output 09/13 1600 /03 0800 09/13 0000 Intake Total 440 240 Output Total 300 Balance 140 240 Intake, IV 200 Intake, Oral 240 240 Output, Urine 300 Results Pertinent Lab/Alexis Results: Laboratory Tests 09/13 0640 Chemistry Sodium (137 - 145 mmol/L) 141 Potassium (3.5 - 5.1 mmol/L) 4.8 Chloride (98 - 107 mmol/L) 102 Carbon Dioxide (22 - 30 mmol/L) 29 Anion Gap (5 - 16) 10 BUN (7 - 17 mg/dL) 50 H Creatinine (0.5 - 1.0 mg/dL) 0.9 Estimated GFR (>60 ml/min) 59 L BUN/Creatinine Ratio (7 - 25 %) 55.6 H Coagulation PT (9.4 - 12.5 SEC) 14.0 H INR (0.90 - 1.19) 1.34 H Hematology CBC w Diff NO MAN DIFF REQ WBC (4.8 - 10.8 /CUMM) 14.9 H RBC (4.20 - 5.40 /CUMM) 2.72 L Hgb (12.0 - 16.0 G/DL) 8.1 L Hct (37 - 47 %) 24.0 L MCV (81.0 - 99.0 FL) 88.4 MCH (27.0 - 31.0 PG) 29.6 RDW (11.5 - 14.5 %) 13.7 Plt Count (130 - 400 /CUMM) 290 MPV (7.4 - 10.4 FL) 9.0 Gran % (42.2 - 75.2 %) 81.8 H Lymphocytes % (20.5 - 51.1 %) 8.6 L Monocytes % (1.7 - 9.3 %) 9.4 H Eosinophils % (0 - 5 %) 0.2 Basophils % (0.0 - 2.0 %) 0 L Absolute Granulocytes (1.4 - 6.5 /CUMM) 12.2 H Absolute Lymphocytes (1.2 - 3.4 /CUMM) 1.3 Absolute Monocytes (0.10 - 0.60 /CUMM) 1.4 H Absolute Eosinophils (0.0 - 0.7 /CUMM) 0 Absolute Basophils (0.0 - 0.2 /CUMM) 0 PUBS MCHC (33.0 - 37.0 G/DL) 33.5
[2016-09-13 15:55] VITALS: BP 142/76
--- NOTE | 2016-09-13 17:25 | PN- Att Addend ---
Attending MD Review Statement Attending Statement Attending MD Statement: examined this patient, discuss w/resident/PA/STUDENT OUTREACH COORDINATOR, agreed w/resident/PA/STUDENT OUTREACH COORDINATOR, discussed with family, reviewed EMR data (avail), discussed w/ nursing Attending Assessment/Plan: Patient seen and examined at bedside. Discussed with patient's son at bedside the care plan. Patient is alert and oriented but is little confused. Patient says she's wants to go home. Discussed with patient's son and patient that she is to be discharged likely to rehabilitation on Thursday once her confusion is better. Patient on CAT scan of the chest was found to have multiple small scattered pulmonary embolism and is currently on Lovenox and Coumadin. INR today is 1.34. Also patient's the BUN and creatinine has gone up to 50 and 0.9 respectively from 36 and 0.7. Patient got a dose of ketorolac yesterday for pain and is also on diclofenac gel. We would avoid giving any NSAIDs including ketorolac. We will start her on gentle hydration if BUN and creatinine worsens tomorrow.
[2016-09-13 23:21] VITALS: BP 144/72
[2016-09-14 08:21] LABS: ABSOLUTE BASOPHIL COUNT 0.1 /CUMM (0.0-0.2); ABSOLUTE EOSINOPHIL COUNT 0.1 /CUMM (0.0-0.7); ABSOLUTE GRANULOCYTE CT 10.9 /CUMM (1.4-6.5); ABSOLUTE LYMPH COUNT 1.4 /CUMM (1.2-3.4); ABSOLUTE MONOCYTE COUNT 1.7 /CUMM (0.10-0.60); BASOPHIL % 0.4 % (0.0-2.0); EOSINOPHIL % 0.6 % (0-5); GRANULOCYTE % 76.9 % (42.2-75.2); HEMATOCRIT 23.5 % (37-47); MEAN CORPUSCULAR HGB 29.8 PG (27.0-31.0); MEAN CORPUSCULAR HGB CONC 33.3 G/DL (33.0-37.0); MEAN CORPUSCULAR VOLUME 89.3 FL (81.0-99.0); MEAN PLATELET VOLUME 8.8 FL (7.4-10.4); PLATELET COUNT 307 /CUMM (130-400); RBC DISTRIBUTION WIDTH 13.6 % (11.5-14.5); RED BLOOD CELL CT 2.63 /CUMM (4.20-5.40); WHITE BLOOD CELL COUNT 14.1 /CUMM (4.8-10.8)
[2016-09-14 08:48] VITALS: BP 97/66
[2016-09-14 09:05] LABS: PT 14.1 SEC (9.4-12.5)
--- NOTE | 2016-09-14 10:58 | PN- Endocrinology ---
Assessment/Plan Assessment: Patient was diagnosed with hyperthyroidism with TSH of less than 0.015 and free T4 clearly elevated at 3.03. Thyroid u.s showed an enlarged thyroid gland w/o discrete nodules. Patient was put on Methimazole 5 mg twice a day. She had an episode of SVT with HR in the 130s. Repeat free T4 on 09/14/2016 was 2.26. with regards to DM, Novolog coverage before meals was adjusted on 09/13/2016 and her FSGs were 86, 282 and 196. Plan: 1. hyperthyroidism: TFT is improving -- continue Methimazole 5 mg twice a day for now. --repeat free T4 in 2 days and the dose of Methimazole will be adjusted accordingly. 2. DM: -- continue the current Novolog coverage before meals; -- follow HbA1c -- monitor FSGs. will follow. Subjective Subjective: She appears sleepy this morning. Objective Last 24 Hrs of Vital Signs/I&O Vital Signs Date Time Temp Pulse Resp B/P B/P Pulse O2 O2 Flow FiO2 Mean Ox Delivery Rate 09/14 0848 98.7 69 18 97/66 95 Nasal 3.0L Cannula 09/14 0000 Nasal 3.0L Cannula 09/13 2321 98.0 95 20 144/72 99 Nasal 3.0L Cannula 09/13 2104 85 140/54 09/13 1600 94 Nasal 3.0L Cannula 09/13 1555 99.8 76 16 142/76 98 Nasal 3.0L Cannula Intake & Output 09/14 1600 / 0800 09/14 0000 Intake Total 440 570 Output Total 200 350 Balance 240 220 Intake, IV 200 120 Intake, Oral 240 450 Number 0 Bowel Movements Output, Urine 200 350 Results Pertinent Lab/Alexis Results: Laboratory Tests 09/14 09/14 0609 0500 Chemistry Sodium (137 - 145 mmol/L) 143 Potassium (3.5 - 5.1 mmol/L) 4.4 Chloride (98 - 107 mmol/L) 103 Carbon Dioxide (22 - 30 mmol/L) 32 H Anion Gap (5 - 16) 7 BUN (7 - 17 mg/dL) 43 H Creatinine (0.5 - 1.0 mg/dL) 0.7 Estimated GFR (>60 ml/min) > 60 BUN/Creatinine Ratio (7 - 25 %) 61.4 H Free T4 (0.85 - 1.93 ng/dL) 2.26 H Coagulation PT (9.4 - 12.5 SEC) 14.1 H INR (0.90 - 1.19) 1.35 H Hematology CBC w Diff NO MAN DIFF REQ WBC (4.8 - 10.8 /CUMM) 14.1 H RBC (4.20 - 5.40 /CUMM) 2.63 L Hgb (12.0 - 16.0 G/DL) 7.8 L Hct (37 - 47 %) 23.5 L MCV (81.0 - 99.0 FL) 89.3 MCH (27.0 - 31.0 PG) 29.8 RDW (11.5 - 14.5 %) 13.6 Plt Count (130 - 400 /CUMM) 307 MPV (7.4 - 10.4 FL) 8.8 Gran % (42.2 - 75.2 %) 76.9 H Lymphocytes % (20.5 - 51.1 %) 10.0 L Monocytes % (1.7 - 9.3 %) 12.1 H Eosinophils % (0 - 5 %) 0.6 Basophils % (0.0 - 2.0 %) 0.4 Absolute Granulocytes (1.4 - 6.5 /CUMM) 10.9 H Absolute Lymphocytes (1.2 - 3.4 /CUMM) 1.4 Absolute Monocytes (0.10 - 0.60 /CUMM) 1.7 H Absolute Eosinophils (0.0 - 0.7 /CUMM) 0.1 Absolute Basophils (0.0 - 0.2 /CUMM) 0.1 PUBS MCHC (33.0 - 37.0 G/DL) 33.3 Urines Urine Color (YEL,AMB,STR) YEL Urine Clarity (CLEAR) CLDY H Urine pH (5.0 - 8.0) 6.5 Ur Specific [place] (1.001 - 1.035) 1.015 Urine Protein (NEG,<30 MG/DL) 100 H Urine Ketones (NEG) NEG Urine Nitrite (NEG) POS H Urine Bilirubin (NEG) NEG Urine Urobilinogen (0.1 - 1.0 EU/dl) 0.2 Ur Leukocyte Esterase (NEG) LARGE H Ur Microscopic SEDIMENT EXAMINED Urine RBC (0 - 5 /HPF) 3-5 Urine WBC (0 - 2 /HPF) PACKD H Ur Epithelial Cells (NONE,FEW) RARE Urine Bacteria (NEG/NONE) MANY H Urine Hemoglobin (NEG) MOD H Urine Glucose (N MG/DL) NEG
--- NOTE | 2016-09-14 13:21 | PN- Cardiology ---
Subjective Subjective: Resting comfortably this morning. No chest pain, dyspnea, or palpitations. Mildly disoriented but answering questions. Objective Vital Signs and I&Os Vital Signs Date Time Temp Pulse Resp B/P B/P Pulse O2 O2 Flow FiO2 Mean Ox Delivery Rate 09/14 0848 98.7 69 18 97/66 95 Nasal 3.0L Cannula 09/14 0800 98 Nasal 3.0L Cannula 09/14 0000 Nasal 3.0L Cannula 09/13 2321 98.0 95 20 144/72 99 Nasal 3.0L Cannula 09/13 2104 85 140/54 09/13 1600 94 Nasal 3.0L Cannula 09/13 1555 99.8 76 16 142/76 98 Nasal 3.0L Cannula Intake & Output 09/14 1600 09/14 0800 09/14 0000 09/13 1600 09/13 0800 09/13 0000 Intake Total 440 570 450 440 240 Output Total 200 350 400 300 Balance 240 220 50 140 240 Intake, IV 200 120 200 Intake, Oral 240 450 450 240 240 Number 0 Bowel Movements Output, Urine 200 350 400 300 Physical Exam: General: no apparent distress. laying flat. Eyes: No obvious scleral icterus. HEENT: No jugular venous distention or abnormal jugular venous pulsations. Cardiovascular: Normal intensity S1/S2. Regular. Respiratory: Decreased air entry at the bases Abdomen: Soft, nontender with no guarding or rebound tenderness. Musculoskeletal: No clubbing or cyanosis noted, no edema Skin: Warm Current Medications: Current Medications Sig/Dior Start time Last Medication Dose Route Stop Time Status Admin Acetaminophen 1,000 MG Q6 09/09 1200 AC 09/14 N/A 1 UNIT IV 1217 Acetaminophen 650 MG Q6P PRN 09/07 1630 AC 09/12 PO 1725 Aspirin 81 MG DAILY 09/10 1539 AC 09/14 PO 0845 Ceftriaxone Sodium 1,000 MG DAILY 09/14 1000 AC 09/14 IV 1034 Diclofenac Sodium 1 REY 4 TIMES/DAY PRN 09/12 2130 AC 09/12 TOP 2244 Docusate Sodium 100 MG BID 09/07 2200 AC 09/12 PO 2120 Enoxaparin Sodium 60 MG Q12 09/12 1400 AC 09/14 SC 0845 Guaifenesin 10 ML Q4P PRN 09/07 1615 AC 09/13 PO 0858 Haloperidol 2 MG TID PRN 09/09 1715 AC 09/10 PO 0918 Insulin Aspart 0 TIDAC 09/11 1700 AC 09/14 SC 1218 Lisinopril 10 MG DAILY 09/08 1000 AC 09/14 PO 0845 Methimazole 5 MG BID 09/11 220 AC 09/14 PO 0845 Metoprolol Tartrate 50 MG BID 09/12 2200 AC 09/14 PO 0845 Nicotine 14 MG DAILY 09/08 1000 AC 09/14 TOP 0845 Ondansetron HCl 4 MG Q6P PRN 09/07 1630 AC IV Polyethylene Glycol 17 GM DAILY 09/09 1040 AC PO Ramelteon 8 MG AT BEDTIME 09/11 220 AC 09/13 PO 2101 Sodium Chloride 1,000 ML Q10H 09/14 1000 AC 09/14 IV 09/14 195 1017 Warfarin Sodium 5 MG COUMADIN 1700 ONE 09/14 1700 AC PO 09/14 1701 Warfarin Sodium 2.5 MG COUMADIN 170 ONE 09/13 1700 DC 09/13 PO 09/13 1701 1730 Results Last 48 Hrs of Labs/Mics: Laboratory Tests 09/14/16 0609: Anion Gap 7, Estimated GFR > 60, BUN/Creatinine Ratio 61.4 H, Free T4 2.26 H, PT 14.1 H, INR 1.35 H, CBC w Diff NO MAN DIFF REQ, RBC 2.63 L, MCV 89.3, MCH 29.8, RDW 13.6, MPV 8.8, Gran % 76.9 H, Lymphocytes % 10.0 L, Monocytes % 12.1 H, Eosinophils % 0.6, Basophils % 0.4, Absolute Granulocytes 10.9 H, Absolute Lymphocytes 1.4, Absolute Monocytes 1.7 H, Absolute Eosinophils 0.1, Absolute Basophils 0.1, PUBS MCHC 33.3 09/14/16 0500: Urine Color YEL, Urine Clarity CLDY H, Urine pH 6.5, Ur Specific [place] 1.015, Urine Protein 100 H, Urine Ketones NEG, Urine Nitrite POS H, Urine Bilirubin NEG, Urine Urobilinogen 0.2, Ur Leukocyte Esterase LARGE H, Ur Microscopic SEDIMENT EXAMINED, Urine RBC 3-5, Urine WBC PACKD H, Ur Epithelial Cells RARE, Urine Bacteria MANY H, Urine Hemoglobin MOD H, Urine Glucose NEG 09/13/16 0640: Anion Gap 10, Estimated GFR 59 L, BUN/Creatinine Ratio 55.6 H, Hemoglobin A1c Pending, PT 14.0 H, INR 1.34 H, CBC w Diff NO MAN DIFF REQ, RBC 2.72 L, MCV 88.4, MCH 29.6, RDW 13.7, MPV 9.0, Gran % 81.8 H, Lymphocytes % 8.6 L, Monocytes % 9.4 H, Eosinophils % 0.2, Basophils % 0 L, Absolute Granulocytes 12.2 H, Absolute Lymphocytes 1.3, Absolute Monocytes 1.4 H, Absolute Eosinophils 0, Absolute Basophils 0, PUBS MCHC 33.5 Recent Imaging Studies: Telemetry tracings were personally reviewed; shows sinus rhythm Assessment/Plan Assessment/Plan 1. Hip fracture status post repair 2. Paroxysmal atrial fibrillation 3. Pulmonary embolism 4. History of coronary artery disease 5. Postoperative delirium 6. Anemia 7. Hyperthyroidism 8. UTI Remains in SR. On methimazole for hyperthyroidism. Hg low but stable. Remains on Lovenox and Coumadin has been initiated (INR 1.35). Continue beta nivia therapy. Is now on Ceftriaxone. Augie Armstrong MD [facility] . Continue telemetry? Yes
--- NOTE | 2016-09-14 14:49 | PN- Att Addend ---
Attending MD Review Statement Attending Statement Attending MD Statement: examined this patient, discuss w/resident/PA/THREADING MACHINE OPERATOR, agreed w/resident/PA/THREADING MACHINE OPERATOR, reviewed EMR data (avail), discussed w/nursing Attending Assessment/Plan: Laboratory Tests 09/14/16 0609: Anion Gap 7, Estimated GFR > 60, BUN/Creatinine Ratio 61.4 H, Free T4 2.26 H, PT 14.1 H, INR 1.35 H, CBC w Diff NO MAN DIFF REQ, RBC 2.63 L, MCV 89.3, MCH 29.8, RDW 13.6, MPV 8.8, Gran % 76.9 H, Lymphocytes % 10.0 L, Monocytes % 12.1 H, Eosinophils % 0.6, Basophils % 0.4, Absolute Granulocytes 10.9 H, Absolute Lymphocytes 1.4, Absolute Monocytes 1.7 H, Absolute Eosinophils 0.1, Absolute Basophils 0.1, PUBS MCHC 33.3 09/14/16 0500: Urine Color YEL, Urine Clarity CLDY H, Urine pH 6.5, Ur Specific [place] 1.015, Urine Protein 100 H, Urine Ketones NEG, Urine Nitrite POS H, Urine Bilirubin NEG, Urine Urobilinogen 0.2, Ur Leukocyte Esterase LARGE H, Ur Microscopic SEDIMENT EXAMINED, Urine RBC 3-5, Urine WBC PACKD H, Ur Epithelial Cells RARE, Urine Bacteria MANY H, Urine Hemoglobin MOD H, Urine Glucose NEG Vital Signs Date Time Temp Pulse Resp B/P B/P Pulse O2 O2 Flow FiO2 Mean Ox Delivery Rate 09/14 0848 98.7 69 18 97/66 95 Nasal 3.0L Cannula 09/14 0800 98 Nasal 3.0L Cannula 09/14 0000 Nasal 3.0L Cannula 09/13 2321 98.0 95 20 144/72 99 Nasal 3.0L Cannula 09/13 2104 85 140/54 06 1600 94 Nasal 3.0L Cannula 09/13 1555 99.8 76 16 142/76 98 Nasal 3.0L Cannula Patient seen and examined at bedside. Infectious encephalopathy- Patient is alert but more confused today. Wbc today is 14.1, UA is postive and pt also has dysuria. Start on ceftriaxone for UTI. pt also complains of some left flank pain. if pain does not improve we will get usg kidneys. Pulmonary embolism- Patient on CAT scan of the chest was found to have multiple small scattered pulmonary embolism and is currently on Lovenox and Coumadin. INR today is 1.35. Coumadin 5mg tonight. prerenal picture- We will start her on gentle hydration and recheck bMP tomorrow.
[2016-09-14 15:41] VITALS: BP 140/72
[2016-09-14 22:00] VITALS: BP 156/82
--- NOTE | 2016-09-15 07:19 | PN- Housestaff ---
Subjective Follow-up For: 1.Right hip fracture 2.s/p repair 6 days ago 3.Altered mentation - acute hyperactive delirium 4. Multiple bilateral small PEs Tele-Events Since Last Visit: Sinus rhythm, heart rate 70s to 90s, with no overnight events Subjective: Afebrile. hemodynamically stable. No overnight events reported. Patient denies any current active complaints. Patient has bilateral hands tremor Review of Systems Constitutional: Reports: no symptoms. Objective Last 24 Hrs of Vital Signs/I&O Vital Signs Date Time Temp Pulse Resp B/P B/P Pulse O2 O2 Flow FiO2 Mean Ox Delivery Rate 09/15 1158 98.1 88 18 140/60 06/05 1035 Nasal 3.0L Cannula 09/15 0919 88 140/60 / 0919 88 140/60 / 0806 88 09/15 0800 Nasal 3.0L Cannula 09/15 0757 98.1 72 18 140/60 98 Nasal 3.0L Cannula 09/15 0000 Nasal 3.0L Cannula 09/14 2201 80 156/82 09/14 2200 98.7 80 18 156/82 98 Nasal 3.0L Cannula Intake & Output 09/15 1600 05 0800 05 0000 Intake Total 460 860 Output Total Balance 460 860 Intake, IV 260 500 Intake, Oral 200 360 Physical Exam General Appearance: Alert, Oriented X3, Cooperative, No Acute Distress HEENT: Atraumatic, PERRLA, EOMI, Mucous Membr. moist/pink Cardiovascular: Regular Rate, Normal S1, Normal S2, No Murmurs Lungs: Clear to Auscultation, Normal Air Movement Abdomen: Normal Bowel Sounds, Soft, No Tenderness Neurological: Normal Speech Extremities: No Clubbing, No Cyanosis, No Edema Current Medications: Current Medications Sig/Dior Start time Last Medication Dose Route Stop Time Status Admin Acetaminophen 1,000 MG Q6 09/09 1200 DCD 09/15 N/A 1 UNIT IV 1223 Acetaminophen 650 MG Q6P PRN 09/07 1630 DCD 09/12 PO 1725 Aspirin 81 MG DAILY 09/10 1539 DCD 09/15 PO 0918 Ceftriaxone Sodium 1,000 MG DAILY 09/14 1000 DCD 09/15 IV 0918 Diclofenac Sodium 1 REY 4 TIMES/DAY PRN 09/12 2130 DCD 09/15 TOP 0919 Docusate Sodium 100 MG BID 09/07 2200 DCD 09/15 PO 0918 Enoxaparin Sodium 60 MG Q12 09/12 1400 DCD 09/15 SC 0918 Guaifenesin 10 ML Q4P PRN 09/07 1615 DCD 09/13 PO 0858 Haloperidol 2 MG TID PRN 09/09 1715 DCD 09/10 PO 0918 Insulin Aspart 0 TIDAC 09/11 1700 DCD 09/15 SC 0800 Lisinopril 10 MG DAILY 09/08 1000 DCD 09/15 PO 0919 Methimazole 5 MG BID 09/11 2200 DCD 09/15 PO 0919 Metoprolol Tartrate 50 MG BID 09/12 2200 DCD 09/15 PO 0919 Nicotine 14 MG DAILY 09/08 1000 DCD 09/15 TOP 0918 Ondansetron HCl 4 MG Q6P PRN 09/07 1630 DCD IV Polyethylene Glycol 17 GM DAILY 09/09 1040 DCD 09/15 PO 0918 Ramelteon 8 MG AT BEDTIME 09/11 2200 DCD 09/14 PO 2201 Sodium Chloride 1,000 ML Q10H 09/14 1000 DC 09/14 IV 09/14 1959 1017 Last 24 Hrs of Lab/Alexis Results Last 24 Hrs of Labs/Mics: Laboratory Tests 09/15/16 1010: CBC w Diff NO MAN DIFF REQ, RBC 2.53 L, MCV 89.7, MCH 29.6, RDW 13.5, MPV 8.3, Gran % 77.1 H, Lymphocytes % 8.6 L, Monocytes % 13.6 H, Eosinophils % 0.5, Basophils % 0.2, Absolute Granulocytes 10.1 H, Absolute Lymphocytes 1.1 L, Absolute Monocytes 1.8 H, Absolute Eosinophils 0.1, Absolute Basophils 0, PUBS MCHC 33.0 09/15/16 0705: PT 20.6 H, INR 1.98 H Assessment/Plan Assessment: 89-year-old lady with h/o 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 Problem list/plan: #Pulmonary embolism Patient was found to have pulmonary embolism on CTA that was ordered because of abnormal heartrate times. * Continue 5 days of Lovenox * Continue dosing Coumadin #Right hip intertrochanteric fracture s/p intramedullary nailing Underwent right hip ORIF on 09/07/16 POD #8.Orthopedic cleared patient for discharge to short-term rehabilitation. * Cam to be removed 14 days postop * Patient to follow up with Dr. Moran in the office #Hyperthyroidism As part of delirium workup, TSH was found to be low and T4 was found to be high but T3 was found to be WNL which does not fits the picture of hyperthyroidism. TFT was repeated this AM and gave similar result. Given her uncontrolled heartrate and tremor, endocrinology recommended the following * Increase methimazole to 5 mg BID * Continue metoprolol 25 mg BID * Pending Thyroid stimulating immunoglobulin. * Thyroid ultrasound was negative for any thyroid nodule or mass #Supraventricular tachycardia/sinus tachycardia/short runs of V. tach Multiple sinus tachycardia, supraventricular tachycardia and short runs of V. tach beats were noticed on the telemetry. Patient continue to exhibit these arrhythmias even on metoprolol 25 mg. this morning patient had SVT that required adenosine(event notes) * We'll follow cardiology recommendation * Continue telemetry monitoring #Leukocytosis Afebrile, hemodynamically stable, denies any current active pain. No symptom or signs suggestive of infection. * We will follow CBC daily #CAD status post PCI/Hypertension ECHO shows EF 60%, mild TR, AR, Pulmonary regurgitation. * Continue aspirin * Continue metoprolol 25 mg twice a day * Continue lisinopril 10 mg * Continue statin Heart healthy diet DVT ppx Eliquis 2.5mg BID. Full code Problem List: 1. Hip fracture, right Pain Ratin Pain Location: back Pain Goal: Remain pain free Pain Plan: See A&P Tomorrow's Labs & Rationales: NONE
--- NOTE | 2016-09-15 07:34 | PN- Diabetes ---
Assessment/Plan Assessment: Feels a little better. She is on methimazole 5 mg twice a day. The patient's ultrasound shows no nodules. Also the patient's thyroid stimulating immunoglobulin has returned and it is negative. Her free T4 has fallen to 2.26 today and the other thyroid tests are pending. Plan: Suggest continue methimazole 5 mg twice a day for now. Would like to reduce the dosage to 5 mg once a day a few days but would repeat thyroid function tests on Thursday this week before doing that. The patient does not have toxic nodular disease which would be the most common cause of hyperthyroidism in this age group. Also her thyroid stimulating immunoglobulin is negative. We can look for other types of thyrotroponin receptor antibodies. Consider measuring TBII which is TSH binding inhibiting immunoglobulin Subjective Subjective: Feels a little better but has some left flank pain Review of Systems Constitutional: Denies: chills, fever. Cardiovascular: Denies: chest pain. Respiratory: Denies: short of breath. Gastrointestinal: Reports: abdominal pain (flank pain). Denies: nausea, vomiting. Skin: Reports: no symptoms. Objective Last 24 Hrs of Vital Signs/I&O Vital Signs Date Time Temp Pulse Resp B/P B/P Pulse O2 O2 Flow FiO2 Mean Ox Delivery Rate 09/15 0000 Nasal 3.0L Cannula 09/14 2200 80 156/82 09/14 2200 98.7 80 18 156/82 98 Nasal 3.0L Cannula 09/14 1600 Nasal 3.0L Cannula 09/14 1541 98.7 70 18 140/72 98 Nasal 3.0L Cannula 09/14 0848 98.7 69 18 97/66 95 Nasal 3.0L Cannula 09/14 0800 98 Nasal 3.0L Cannula Intake & Output 05 0800 0605 0000 09/14 1600 Intake Total 460 860 850 Output Total 350 Balance 460 860 500 Intake, IV 260 500 400 Intake, Oral 200 360 450 Output, Urine 350 Vital Signs Date Time Temp Pulse Resp B/P B/P Pulse O2 O2 Flow FiO2 Mean Ox Delivery Rate 09/15 0000 Nasal 3.0L Cannula / 2201 80 156/82 /04 2200 98.7 80 18 156/82 98 Nasal 3.0L Cannula 09/14 1600 Nasal 3.0L Cannula 09/14 1541 98.7 70 18 140/72 98 Nasal 3.0L Cannula 09/14 0848 98.7 69 18 97/66 95 Nasal 3.0L Cannula 09/14 0800 98 Nasal 3.0L Cannula Intake & Output 09/15 0800 09/15 0000 09/14 1600 Intake Total 460 860 850 Output Total 350 Balance 460 860 500 Intake, IV 260 500 400 Intake, Oral 200 360 450 Output, Urine 350 Physical Exam General Appearance: alert, awake, comfortable Neck: normal inspection Respiratory: normal breath sounds Cardiovascular: regular rate/rhythm Abdomen: normal bowel sounds Extremities: normal inspection Current Medications: Current Medications Sig/Dior Start time Last Medication Dose Route Stop Time Status Admin Acetaminophen 1,000 MG Q6 09/09 1200 AC 09/15 N/A 1 UNIT IV 0556 Acetaminophen 650 MG Q6P PRN 09/07 1630 AC 09/12 PO 1725 Aspirin 81 MG DAILY 09/10 1539 AC 09/14 PO 0845 Ceftriaxone Sodium 1,000 MG DAILY 09/14 1000 AC 09/14 IV 1034 Diclofenac Sodium 1 REY 4 TIMES/DAY PRN 09/12 2130 AC 09/14 TOP 1330 Docusate Sodium 100 MG BID 09/07 2200 AC 09/14 PO 2201 Enoxaparin Sodium 60 MG Q12 09/12 1400 AC 09/14 SC 2202 Guaifenesin 10 ML Q4P PRN 09/07 1615 AC 09/13 PO 0858 Haloperidol 2 MG TID PRN 09/09 1715 AC 09/10 PO 0918 Insulin Aspart 0 TIDAC 09/11 1700 AC 09/14 SC 1218 Lisinopril 10 MG DAILY 09/08 1000 AC 09/14 PO 0845 Methimazole 5 MG BID 09/11 2200 AC 09/14 PO 2201 Metoprolol Tartrate 50 MG BID 09/12 2200 AC 09/14 PO 2201 Nicotine 14 MG DAILY 09/08 1000 AC 09/14 TOP 0845 Ondansetron HCl 4 MG Q6P PRN 09/07 1630 AC IV Polyethylene Glycol 17 GM DAILY 09/09 1040 AC PO Ramelteon 8 MG AT BEDTIME 09/11 2200 AC 09/14 PO 2201 Sodium Chloride 1,000 ML Q10H 09/14 1000 DC 09/14 IV 09/14 1959 1017 Warfarin Sodium 5 MG COUMADIN 1700 ONE 06/04 1700 DC 09/14 PO 09/14 1701 1730 Findings Pertinent Lab/Alexis Results: Laboratory Tests 09/15 0705 Coagulation PT Pending INR Pending
[2016-09-15 07:57] VITALS: BP 140/60
[2016-09-15 08:16] LABS: PT 20.6 SEC (9.4-12.5)
--- NOTE | 2016-09-15 10:39 | Patient Discharge Instructions ---
Discharge Instructions General Discharge Information You were seen/treated for: Right hip fracture Parathyroidism Multiple bilateral PEs Special Instructions: His follow-up with your primary care physician in one week of discharge Please follow-up with skin fitter in 1 week of discharge Please follow-up with endocrinology Puma Penaloza MD after checking cure thyroid function tests on Thursday09/17/2016 and your methimazole dose might be reduced to once daily by Dr. Penaloza Please check INR, CBC and LFTs weekly These follow-up with orthopedic surgery Dr. Recinos for staple removal on postop day 14 around 09/21/2016 please avoid NSAID because they interact with warfarin Diet Recommended Diet: Heart Healthy Activity Additional ACTIVITY Info: asTolerated with assistance Acute Coronary Syndrome Inclusion Criteria At DC or during hospital stay patient has or had the following: ACS DIAGNOSIS No Discharge Core Measures Meds if any: Prescribed or Continued at Discharge Meds if any: NOT Prescribed or Continued at Discharge Congestive Heart Failure Inclusion Criteria At DC or during hospital stay patient has or had the following: CHF DIAGNOSIS No Discharge Core Measures Meds if any: Prescribed or Continued at Discharge Meds if any: NOT Prescribed or Continued at Discharge Cerebrovascular accident Inclusion Criteria At DC or during hospital stay patient has or had the following: CVA/TIA Diagnosis No Discharge Core Measures Meds if any: Prescribed or Continued at Discharge Meds if any: NOT Prescribed or Continued at Discharge Venous thromboembolism Inclusion Criteria VTE Diagnosis Yes VTE Type Pulmonary Embolism VTE Confirmed by (Test) CT CHEST ANGIOGRAM Discharge Core Measures - Per Current guidelines, there needs to be overlap - treatment for the first 5 days of Warfarin therapy. - If discharged on Warfarin prior to 5 days of - overlap therapy, the patient will need to be - assessed for post discharge needs including - *Post discharge parental anticoagulation - *Warfarin and/or parental anticoagulation education - *Follow up date to check INR post discharge At least 5 days overlap therapy as Inpatient Yes Meds if any: Prescribed or Continued at Discharge Note: Overlap Therapy is Warfarin and Anticoagulant Meds if any: NOT Prescribed or Continued at Discharge
[2016-09-15] MEDS ORDERED: COUMADIN3 M1 PO (10:46)
[2016-09-15] MEDS ORDERED: KEFLEX500 M1 PO (10:48)
[2016-09-15 10:56] LABS: ABSOLUTE BASOPHIL COUNT 0 /CUMM (0.0-0.2); ABSOLUTE EOSINOPHIL COUNT 0.1 /CUMM (0.0-0.7); ABSOLUTE GRANULOCYTE CT 10.1 /CUMM (1.4-6.5); ABSOLUTE LYMPH COUNT 1.1 /CUMM (1.2-3.4); ABSOLUTE MONOCYTE COUNT 1.8 /CUMM (0.10-0.60); BASOPHIL % 0.2 % (0.0-2.0); EOSINOPHIL % 0.5 % (0-5); GRANULOCYTE % 77.1 % (42.2-75.2); HEMATOCRIT 22.7 % (37-47); MEAN CORPUSCULAR HGB 29.6 PG (27.0-31.0); MEAN CORPUSCULAR VOLUME 89.7 FL (81.0-99.0); MEAN PLATELET VOLUME 8.3 FL (7.4-10.4); PLATELET COUNT 334 /CUMM (130-400); RBC DISTRIBUTION WIDTH 13.5 % (11.5-14.5); RED BLOOD CELL CT 2.53 /CUMM (4.20-5.40); WHITE BLOOD CELL COUNT 13.1 /CUMM (4.8-10.8)
[2016-09-15] MEDS ORDERED: HALOPERIDOL2 M1 PO (11:55)
[2016-09-15] MEDS ORDERED: LOVENOX60 MG/0.1 SC (11:55)
[2016-09-15] MEDS ORDERED: TAPAZOLE5 MG PO (11:56)
[2016-09-15] MEDS ORDERED: ROZEREM8 M1 PO (11:57)
[2016-09-15 11:58] VITALS: BP 140/60
--- NOTE | 2016-09-15 16:37 | PN- Att Addend ---
Attending MD Review Statement Attending Statement Attending MD Statement: examined this patient, discuss w/resident/PA/DIRECTOR OF PERSONNEL, agreed w/resident/PA/DIRECTOR OF PERSONNEL, discussed with family, reviewed EMR data (avail), discussed w/ nursing, discussed w/case mgmt Attending Assessment/Plan: pt seen and examined at bedside. d/w pt and pts son at bedside the care plan. UTI- on ceftriaxone, will dc on po keflex PE- dced on coumadin and will need lovenox for one more day. Infectious encephalopathy- secondary to UTI- improving . Dc to [facility] today. see dc summary for more details.
== END 2016-09-15 14:45 | DRG 480 ==
LOC: ERH 19:59 → 2NA 21:38 → ERHI 21:38 → 1NO 21:38 → ENRESERV 09-07 02:10 → 2NA 09-07 03:14 → 1NO 09-09 13:21 → ENPENDDIS 09-15 13:50 → 1NO 09-15 14:45
PROVIDERS: Internal Medicine; Internal Medicine Infectious Disease; Physician Assistant; Student in an Organized Health Care Education/Training Program; ADMIT Student in an Organized Health Care Education/Training Program
PROC: 0QS606Z Reposition Right Upper Femur with Intramedullary Internal Fixation Device, Open Approach (ICD-10-PCS; principal; 2016-09-07)
DX: S72.144A Nondisplaced intertrochanteric fracture of right femur, initial encounter for closed fracture (principal); I26.99 Other pulmonary embolism without acute cor pulmonale; G93.49 Other encephalopathy; F05 Delirium due to known physiological condition; E05.20 Thyrotoxicosis with toxic multinodular goiter without thyrotoxic crisis or storm; N39.0 Urinary tract infection, site not specified; D62 Acute posthemorrhagic anemia; W18.30XA Fall on same level, unspecified, initial encounter; Y92.009 Unspecified place in unspecified non-institutional (private) residence as the place of occurrence of the external cause; Z79.82 Long term (current) use of aspirin; I10 Essential (primary) hypertension; E78.5 Hyperlipidemia, unspecified; M19.90 Unspecified osteoarthritis, unspecified site; I25.10 Atherosclerotic heart disease of native coronary artery without angina pectoris; Z95.5 Presence of coronary angioplasty implant and graft; I25.2 Old myocardial infarction; M48.06 Spinal stenosis, lumbar region; M81.0 Age-related osteoporosis without current pathological fracture; F17.200 Nicotine dependence, unspecified, uncomplicated; E11.9 Type 2 diabetes mellitus without complications; Z79.4 Long term (current) use of insulin; M48.56XD Collapsed vertebra, not elsewhere classified, lumbar region, subsequent encounter for fracture with routine healing
CPT/HCPCS: 1NP; 2NASP; ERO; 36415; 73502-RT; 81001; 82436; 86376; 86800; 87086; 87804; 87804-59; 93005; 93010; 93306; 94799; 96374; 96375; 97110-GO; 97112-GO; 97161-GP; 97164-GP; 97530-GO; J0131; J0153; J0690; J0696; J1100; J1630; J1650; J2060; J2405; J3490

== ENCOUNTER 2016-10-28 10:15 | Emergency (ER) | payer OTHER, MEDICARE ==
[~2016-10-28] VITALS: Ht 154.9 cm; Wt 59.0 kg
[~2016-10-28 10:15] MED LIST changes: +ALEVE220 M2; +ASPIRIN325 M2 PO; +COUMADIN3 M1 PO; +HALOPERIDOL2 M1 PO; +KEFLEX500 M1 PO; +LISINOPRIL10 M1 PO; +LOVENOX60 MG/0.1 SC; +METOPROLOL TART25 M1 PO; +ROZEREM8 M1 PO; +TAPAZOLE5 MG PO
--- NOTE | 2016-10-28 11:34 | ED AMS/SEIZURE/WEAK/DIZZY ---
History of Present Illness General Chief Complaint: General Adult Stated Complaint: PER SON"SIB CAROL FOR HAND TREMORS" Source: patient, family, old records Exam Limitations: language barrier Allergies Coded Allergies: NO KNOWN ALLERGIES (02/27/12) Reconcile Medications Enoxaparin Sodium (Lovenox) 60 MG/0.6 ML SYRINGE 60 MG SC Q12 blood thinner Haloperidol 2 MG TABLET 2 MG PO TID PRN AGITATION Lisinopril 10 MG TABLET 1 TAB PO DAILY BLOOD PRESSURE (Reported) Methimazole (Tapazole) 5 MG TABLET 5 MG PO BID thyroid health Metoprolol Tartrate 25 MG TABLET 1 TAB PO BID BLOOD PRESSURE (Reported) Ramelteon (Rozerem) 8 MG TABLET 8 MG PO AT BEDTIME insomnia Tramadol HCl 50 MG TABLET 1-2 TAB PO Q6-8P PRN PAIN (Reported) Warfarin Sodium (Coumadin) 3 MG TABLET 1 TAB PO DAILY BLOOD THINNER Triage Note: PT TO ED WITH SON FOR C/O NEW ONSET OF HAND TREMORS X 1 WEEK. SON ALSO CONCERENED ABOUT PT'S BP. PT HAS VISITING AIDE WHO TOOK PT'S BP THIS AM, AND SYSTOLIC WAS 160 PER SON. PT SEE'S DR MEDINA, DOES NOT HAVE PCP. BP IN TRIAGE 168/80. HAND TREMORS NOTED. PT HAS CHRONIC BACK PAIN FROM OSTEOARTHRITIS. Triage Nurses Notes Reviewed? yes Onset: Abrupt Duration: better Timing: single episode today Injury Environment: home Severity: moderate Severity Numbers: 5 HPI: Patient is an 89-year-old female with a past medical history of CAD status post AW ID, stent to LAD in 2012, hypertension, hyperlipidemia, osteoarthritis, lumbar stenosis with radiculopathy, osteoporosis was recently admitted to [facility] for right hip intertrochanteric fracture patient also had delirious activity after being admitted to the hospital where old records dictate it was likely postoperative versus sleep deprivation versus infectious process It was also noted during patient's admission the patient developed multiple SVTs and had pulmonary embolisms or patient was administered Lovenox and Coumadin, patient also noted to have part of the delirium workup that her thyroid was low and T4 was high for concerns of hyperthyroidism. Patient presents emergency room stating that yesterday patient had 1 episode of nonbloody nonbilious emesis however when she woke up today she was complaining of "foggy "blurred vision that resolved prior to arrival and worsening bilateral hand tremors. History is limited due to patient being primarily Russian speaking only however son who lives with patient states that she's had mild tremors persistently in the past however today symptoms are worse. Patient denies any headache fever chills or neck pain neck stiffness chest pain shortness of breath arm pain jaw pain nausea vomiting. Patient did not take her home medications today and which the son also took patient's blood pressure and was known to be high at home. Son denies any signs of facial droop slurred speech or unilateral weakness or concerns of stroke (TATA MARIA) Vital Signs & Intake/Output Vital Signs & Intake/Output Vital Signs Date Time Temp Pulse Resp B/P B/P Pulse O2 O2 Flow FiO2 Mean Ox Delivery Rate 10/28 1453 96.7 69 18 147/65 94 Room Air 10/28 1235 64 18 165/89 95 Room Air 10/28 1149 Room Air 10/28 1018 97.8 88 20 168/80 93 Room Air Past History Travel History Traveled to [place] past 21 day No Medical History Any Pertinent Medical History? see below for history Neurological: NONE EENT: NONE Cardiovascular: hypertension, hyperlipidemia Respiratory: NONE Gastrointestinal: NONE Hepatic: NONE Renal: NONE Musculoskeletal: osteoarthritis Psychiatric: NONE Endocrine: NONE Blood Disorders: NONE Cancer(s): NONE CORPORATE MANAGER/Reproductive: NONE Other Medical Hx: Hypertension, dyslipidemia, coronary artery disease status post anterior wall ID with stent to the LAD in 2002, lumbar stenosis with lumbar radiculopathy, compression fractures, osteoporosis, and carpal tunnel release. History of MRSA: No History of VRE: No History of CDIFF: No Surgical History Surgical History: cardiac stent Psychosocial History Who do you live with Son Services at Home None What is your primary language Divehi Tobacco Use: Quit >30 days ago ETOH Use: denies use Illicit Drug Use: denies illicit drug use Family History Family History, If Any: MOTHER FH: stroke, Onset: 60+. Hx Contributory? No (TATA MARIA) Review of Systems Review of Systems Constitutional: Reports: no symptoms. EENTM: Reports: no symptoms. Respiratory: Reports: no symptoms. Cardiovascular: Reports: no symptoms. GI: Reports: see HPI. Genitourinary: Reports: no symptoms. Musculoskeletal: Reports: no symptoms. Skin: Reports: no symptoms. Neurological/Psychological: Reports: no symptoms. Hematologic/Endocrine: Reports: no symptoms. Immunologic/Allergic: Reports: no symptoms. All Other Systems: Reviewed and Negative (TATA MARIA) Physical Exam Physical Exam General Appearance: no apparent distress, alert, comfortable Comments: Well-developed well-nourished person in no acute distress HEENT: Normal EENT exam, extraocular motion intact, no nystagmus. Pupils equally round and reactive to light and accommodation. Nose is atraumatic. External auditory canal and Tympanic membranes clear. Pharynx normal. No swelling or edema. Neck: Supple, no lymphadenopathy, normal range of motion without pain or tenderness Back: Nontender, no CVA tenderness. Cardiovascular: Regular rate and rhythms no murmurs rubs or gallops, normal JVP Respiratory: Chest nontender. No respiratory distress.breath sounds clear to auscultation bilaterally Abdomen: Soft, nontender nondistended, no appreciable organomegaly. Normal bowel sounds. No ascites Extremity: No edema, no calf tenderness to palpation, normal and equal pulses. Neuro: Alert oriented x3, motor sensory normal, cranial nerves II through XII grossly intact. Noted at rest bilateral upper extremity hand tremors that are made worse with Skin: No appreciable rash on exposed skin, skin is warm and dry. Psych: Mood and affect is normal, memory and judgment is normal. Core Measures ACS in differential dx? No CVA/TIA Diagnosis: No Severe Sepsis Present: No Septic Shock Present: No (TATA MARIA) Progress Differential Diagnosis: arrythmia, anemia, benign positional vertigo, CVA/stroke , dehydration, drug intoxication, encephalitis, electrolyte imbalance, GI bleed, hypoglycemia, hypoxia, intracranial Hem., intracranial mass/tumor, labrynthitis, meningitis, Meniere's disease, migraine AIKEN, multiple sclerosis, pneumonia, postural hypotension, presyncope, post-traumatic vertigo, sepsis, seizure disorder, subarachnoid Hem., UTI/pyelo, vertebrobasilar insuff Plan of Care: Orders Procedure Date/time Status Regular Diet 10/28 D Active Telemetry/Cone Operator 10/28 1144 Active URINALYSIS 10/28 1144 Complete THYROID STIMULATING HORMONE 10/28 1144 Complete TROPONIN LEVEL 10/28 1144 Complete PARTIAL THROMBOPLASTIN TIME 10/28 1144 Complete PROTHROMBIN TIME 10/28 1144 Complete PROLACTIN 10/28 1144 Complete MAGNESIUM 10/28 1144 Complete FREE T4 10/28 1144 Complete COMPREHENSIVE METABOLIC PANEL 10/28 1144 Complete CBC WITHOUT DIFFERENTIAL 10/28 1144 Complete EKG 10/28 1144 Active Laboratory Tests 10/28/16 1520: Urine Color YEL, Urine Clarity CLEAR, Urine pH 7.0, Ur Specific [place] 1.010, Urine Protein TRACE H, Urine Ketones NEG, Urine Nitrite POS H, Urine Bilirubin NEG, Urine Urobilinogen 2.0 H, Ur Leukocyte Esterase SMALL H, Ur Microscopic SEDIMENT EXAMINED, Urine RBC 3-5, Urine WBC 25-50 H, Ur Epithelial Cells FEW, Urine Bacteria MOD H, Hyaline Casts RARE H, Urine Mucus FEW, Urine Hemoglobin SMALL H, Urine Glucose NEG 10/28/16 1152: Anion Gap 8, Estimated GFR > 60, BUN/Creatinine Ratio 36.3 H, Glucose 147 H, Calcium 9.4, Magnesium 2.2, Total Bilirubin 0.5, AST 16, ALT 19, Alkaline Phosphatase 130 H, Troponin I < 0.01, Total Protein 6.6, Albumin 3.8, Globulin 2.8, Albumin/Globulin Ratio 1.4, TSH < 0.015 L, Free T4 1.81, Prolactin 16.1, PT 11.7, INR 1.12, APTT 28, CBC w Diff NO MAN DIFF REQ, RBC 4.13 L, MCV 87.6, MCH 28.7, RDW 14.4, MPV 8.7, Gran % 75.0, Lymphocytes % 15.1 L, Monocytes % 8.2 , Eosinophils % 1.3, Basophils % 0.4, Absolute Granulocytes 5.1, Absolute Lymphocytes 1.0 L, Absolute Monocytes 0.6, Absolute Eosinophils 0.1, Absolute Basophils 0, PUBS MCHC 32.8 L Patient on initial examination shows no concerns of CVA or TIA. Patient is alert and oriented patient does have concerns of essential tremor blood work currently spending 10/28/2016 2:18:39 PM patient is resting comfortable and bedside patient has been in normal sinus rhythm on front desk monitor while in the emergency room. Patient was able to eat a meal and has no complaints currently. CT of head and CT angiogram is currently pending. Blood work was unremarkable as was EKG NIH STROKE SCALE ZERO 10/28/2016 3:42:42 PM patient resting comfortably at bedside Denies any symptoms. Patient was able to ambulate to the bathroom with a walker showing normal steady gait. CT imaging is currently still pending It is noted through CT scan that there was concerns of bronchitis mucous plug however son states that the cough has been chronically improving for the past few months. No concerns of PE. Patient upon discharge looks well no apparent distress and has no focal neurological deficits. Discussed patient with DR. WALSH also evaluated patient and agrees with disposition and plan Patient has been on guaifenesin for the cough (HERIBERTO ROY,TATA) Diagnostic Imaging: Viewed by Me: CT Scan. Radiology Impression: no acute abnormality Initial ED EKG: normal intervals, normal p-waves, normal QRS complex, NSR 61 BPM Comments: PATIENT: ATIYA KHAN PRESENT AGE: 89 PATIENT ACCOUNT NO: [id number] : [birth year] LOCATION: [facility] ORDERING PHYSICIAN: TATA ROY SERVICE DATE: 10/28/16 EXAM TYPE: CAT - CTA CHEST-PULMONARY EMBOLISM EXAMINATION: CT ANGIOGRAM OF THE CHEST WITH AND WITHOUT CONTRAST (CT PULMONARY ANGIOGRAM FOR PE) CLINICAL INFORMATION: TREMORS, BLURRED VISION, RECENT PE. COMPARISON: CT of the chest 09/12/2016. TECHNIQUE: Prior to contrast administration, noncontrast localization images were obtained. Subsequently, multidetector volumetric imaging was performed from the thoracic inlet to below the diaphragms following the administration of 95 mL Optiray . intravenous contrast. No contrast reaction reported. Sagittal, coronal, and MIP oblique sagittal reformatted images were obtained on the CT workstation, uploaded to PACS, and reviewed. Total exam dose-length product 311.99 mGy-cm. FINDINGS: QUALITY OF STUDY/CONTRAST BOLUS: Satisfactory. PULMONARY ARTERIES: No central or segmental pulmonary emboli. THORACIC AORTA: No aneurysm or dissection. Atherosclerotic vascular wall calcifications of thoracic aorta. LUNG: There is mucous plugging in the left lower lobe central bronchi the previously seen left basilar atelectasis/infiltrate though has cleared. There is a 4 mm subpleural nodule in the left lower lobe at the dependent lung on image 30 (3). The vague area of groundglass opacity in the posterior right upper lobe adjacent to the major fissure is unchanged since CAT scan 09/12/2016. Linear basilar dependent atelectasis at right lower lobe. PLEURA: No pleural effusion or pneumothorax. MEDIASTINUM: Normal heart size. No pericardial effusion. No hilar or mediastinal lymphadenopathy. No evidence of septal bowing or right heart strain. Large right and left lobes of thyroid with substernal extension again noted. CHEST WALL/AXILLA: No axillary or internal mammary lymphadenopathy. OSSEOUS STRUCTURES: No acute or suspicious osseous abnormality. 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 Soft tissue ossification adjacent to the left humeral head the left shoulder consistent with calcific tendinosis and/or bursitis. UPPER ABDOMEN: Nodular prominence left adrenal gland unchanged. No reflux of contrast into the hepatic veins to suggest elevated right heart pressures. IMPRESSION: 1. No evidence of pulmonary embolism. The previously seen small peripheral emboli are no longer evident. 2. There is mucous plugging seen in the left lower lobe bronchi but the left lower lobe basilar infiltrate/atelectasis has resolved since the exam of 09/12/2016. 3. Persistent vague groundglass opacity posterior right upper lobe. 4. Interval resolution of bilateral pleural effusions. 5. 4 mm nodule dependent left lower lobe. By the 2017 Fleischner Society pulmonary nodule follow up guidelines no further imaging would be suggested. 6. Goiter. PATIENT: ATIYA KHAN PRESENT AGE: 89 PATIENT ACCOUNT NO: [id number] : [birth year] LOCATION: [facility] ORDERING PHYSICIAN: TATA ROY SERVICE DATE: 10/28/16 EXAM TYPE: CAT - CT HEAD WO IV CONTRAST EXAMINATION: CT HEAD WITHOUT CONTRAST CLINICAL INFORMATION: Blurred vision. Tremors. Abnormal exam. COMPARISON: 03/26/2015. TECHNIQUE: Contiguous axial images of the brain were obtained without IV contrast. DLP: 634 mGy-cm. FINDINGS: There are no pathologic extra-axial fluid collections. The lateral, third, fourth ventricles are prominent, but stable, age-appropriate and concordant with the appearance of the sulci. There is no evidence for acute intraparenchymal hemorrhage or infarct. There is periventricular low-attenuation present indicative of small vessel disease. There is neither mass nor mass effect. There is no shift of midline structures. The paranasal sinuses and mastoid air cells are clear. There are no osseous lesions. IMPRESSION: No evidence for acute intracranial injury. Stable age-appropriate appearance of the brain. DICTATED BY: MEMO OKEEFE MD (HERIBERTO ROY,TATA) Departure Departure Disposition: HOME OR SELF CARE Condition: Stable Clinical Impression Primary Impression: Tremor of both hands Secondary Impressions: Cough Referrals: CAROL HINTON PhD,RENETTA Savage (PCP/Family) Additional Instructions: As discussed please call list of [facility] faculty practice providers with a brochure provided to you in the emergency room tomorrow to establish a doctor. If symptoms worsen return to emergency room. Continue home medications as directed. Departure Forms: Customer Survey General Discharge Information (HERIBERTO ROY,TATA) PA/VERTICAL BORING MILL OPERATOR Co-Sign Statement Statement: ED Attending supervision documentation- [X] I saw and evaluated the patient. I have also reviewed all the pertinent lab results and diagnostic results. I agree with the findings and the plan of care as documented in the PA's/VERTICAL BORING MILL OPERATOR's documentation. [] I have reviewed the ED Record and agree with the PA's/VERTICAL BORING MILL OPERATOR's documentation. [] Additions or exceptions (if any) to the PAs/VERTICAL BORING MILL OPERATOR's note and plan are summarized below: [] (ANGELA WALSH DO)
[2016-10-28] MEDS ORDERED: TRAMADOL HCL50 M1 PO (11:53)
[2016-10-28 12:23] LABS: ABSOLUTE BASOPHIL COUNT 0 /CUMM (0.0-0.2); ABSOLUTE EOSINOPHIL COUNT 0.1 /CUMM (0.0-0.7); ABSOLUTE GRANULOCYTE CT 5.1 /CUMM (1.4-6.5); ABSOLUTE MONOCYTE COUNT 0.6 /CUMM (0.10-0.60); BASOPHIL % 0.4 % (0.0-2.0); EOSINOPHIL % 1.3 % (0-5); HEMATOCRIT 36.2 % (37-47); MEAN CORPUSCULAR HGB 28.7 PG (27.0-31.0); MEAN CORPUSCULAR HGB CONC 32.8 G/DL (33.0-37.0); MEAN CORPUSCULAR VOLUME 87.6 FL (81.0-99.0); MEAN PLATELET VOLUME 8.7 FL (7.4-10.4); PLATELET COUNT 287 /CUMM (130-400); RBC DISTRIBUTION WIDTH 14.4 % (11.5-14.5); RED BLOOD CELL CT 4.13 /CUMM (4.20-5.40); WHITE BLOOD CELL COUNT 6.8 /CUMM (4.8-10.8)
[2016-10-28 12:26] LABS: PT 11.7 SEC (9.4-12.5); PTT 28 SEC (25-37)
--- NOTE | 2016-10-28 14:51 | CT SCAN REPORT ---
EXAMINATION: CT HEAD WITHOUT CONTRAST CLINICAL INFORMATION: Blurred vision. Tremors. Abnormal exam. COMPARISON: 03/26/2015. TECHNIQUE: Contiguous axial images of the brain were obtained without IV contrast. DLP: 634 mGy-cm. FINDINGS: There are no pathologic extra-axial fluid collections. The lateral, third, fourth ventricles are prominent, but stable, age-appropriate and concordant with the appearance of the sulci. There is no evidence for acute intraparenchymal hemorrhage or infarct. There is periventricular low-attenuation present indicative of small vessel disease. There is neither mass nor mass effect. There is no shift of midline structures. The paranasal sinuses and mastoid air cells are clear. There are no osseous lesions. IMPRESSION: No evidence for acute intracranial injury. Stable age-appropriate appearance of the brain.
[2016-10-28 14:53] VITALS: BP 147/65
--- NOTE | 2016-10-28 15:51 | CT SCAN REPORT ---
EXAMINATION: CT ANGIOGRAM OF THE CHEST WITH AND WITHOUT CONTRAST (CT PULMONARY ANGIOGRAM FOR PE) CLINICAL INFORMATION: TREMORS, BLURRED VISION, RECENT PE. COMPARISON: CT of the chest 09/12/2016. TECHNIQUE: Prior to contrast administration, noncontrast localization images were obtained. Subsequently, multidetector volumetric imaging was performed from the thoracic inlet to below the diaphragms following the administration of 95 mL Optiray . intravenous contrast. No contrast reaction reported. Sagittal, coronal, and MIP oblique sagittal reformatted images were obtained on the CT workstation, uploaded to PACS, and reviewed. Total exam dose-length product 311.99 mGy-cm. FINDINGS: QUALITY OF STUDY/CONTRAST BOLUS: Satisfactory. PULMONARY ARTERIES: No central or segmental pulmonary emboli. THORACIC AORTA: No aneurysm or dissection. Atherosclerotic vascular wall calcifications of thoracic aorta. LUNG: There is mucous plugging in the left lower lobe central bronchi the previously seen left basilar atelectasis/infiltrate though has cleared. There is a 4 mm subpleural nodule in the left lower lobe at the dependent lung on image 30 (3). The vague area of groundglass opacity in the posterior right upper lobe adjacent to the major fissure is unchanged since CAT scan 09/12/2016. Linear basilar dependent atelectasis at right lower lobe. PLEURA: No pleural effusion or pneumothorax. MEDIASTINUM: Normal heart size. No pericardial effusion. No hilar or mediastinal lymphadenopathy. No evidence of septal bowing or right heart strain. Large right and left lobes of thyroid with substernal extension again noted. CHEST WALL/AXILLA: No axillary or internal mammary lymphadenopathy. OSSEOUS STRUCTURES: No acute or suspicious osseous abnormality. 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 Soft tissue ossification adjacent to the left humeral head the left shoulder consistent with calcific tendinosis and/or bursitis. UPPER ABDOMEN: Nodular prominence left adrenal gland unchanged. No reflux of contrast into the hepatic veins to suggest elevated right heart pressures. IMPRESSION: 1. No evidence of pulmonary embolism. The previously seen small peripheral emboli are no longer evident. 2. There is mucous plugging seen in the left lower lobe bronchi but the left lower lobe basilar infiltrate/atelectasis has resolved since the exam of 09/12/2016. 3. Persistent vague groundglass opacity posterior right upper lobe. 4. Interval resolution of bilateral pleural effusions. 5. 4 mm nodule dependent left lower lobe. By the 2017 [employer] pulmonary nodule follow up guidelines no further imaging would be suggested. 6. Goiter. VTE: negative
== END 2016-10-28 16:35 ==
LOC: ERH 10:15
PROVIDERS: Physician Assistant
DX: R25.1 Tremor, unspecified (principal); R05 Cough; I10 Essential (primary) hypertension; Z87.891 Personal history of nicotine dependence
CPT/HCPCS: 81001; 93005; 93010